=== PATIENT | female | born 1960 | race Caucasian/White ===

== ENCOUNTER → 2017-07-31 | Day surgery (SDC) | payer BC, OTHER ==
[2017-06-23 13:13] VITALS: BMI 51.0
[2017-07-17 12:03] VITALS: Ht 162.6 cm; Wt 132.7 kg
[~2017-07-31] VITALS: Ht 162.6 cm; Wt 132.7 kg
[~2017-07-31] MED LIST: ASPI325T45 PO; ATV/1 PO; BUTACAP36 PO; CALC600T37 PO; CYCL10TA6 PO; FENTANYL CITRATE INJ 50 MCG/1 ML 2 ML VIAL ONE; IBUP-1050 PO; LABETALOL HCL IV 5 MG/ML 20ML IV ONE; LIDOCAINE HCL 2% 2 ML VIAL (20MG/ML) ONE; OXYC7.5T65 PO; PROPOFOL IV EMULSION 10 MG/ML 20 ML VIAL IV ONE; SODIUM CHLORIDE 0.9% 500ML 500 ML IV ONE; TRMCR515 TOP; VNTHFA/IN INH
--- NOTE | 2017-07-31 15:17 | Endo History and Physical ---
History & Physical Date of Service: Jul 31, 2017. Chief Complaint: anemia Referring Physician: Dr. Kevin Veliz History of Present Illness VIVIANA for EGD/Colon Past Surgical History Hx Cardiac Surgery: No Hx Internal Defibrillator: No Hx Pacemaker: No Hx Abdominal Surgery: Yes (LAPAROSCOPIES) Hx of Implantable Prosthesis: No Hx Post-Op Nausea and Vomiting: Yes Hx Cancer Surgery: No Hx Thoracic Surgery: No Hx Orthopedic: Yes (T5-S1 FUSION (3 SURGERIES TOTAL), RT RCR) Hx Urinary Tract Surgery: No Family History Colon CA, Polyp Social History Smoking Status: Never Smoker Hx Substance Use: No Hx Alcohol Use: No Allergies Coded Allergies: Nafcillin (Verified Allergy, Mild, ITCHING/REDNESS, 07/17/17) Gold (Verified Allergy, Unknown, RASH, 07/17/17) Medroxyprogesterone (Verified Allergy, Unknown, HIVES, 07/17/17) Wheat (Verified Allergy, Unknown, UNKNOWN, 07/17/17) Penicillins (Verified Adverse Reaction, Severe, rash and swelling, 07/31/17 ) Morphine (Verified Adverse Reaction, Mild, nausea /vomit, 07/17/17) Current Medications Reported Home Medications Medications Dose Route/Sig Max Daily Dose Days Date Category Dose Instructions Calcium 600 Mg Tab 1 Tab PO QAM 06/23/17 Reported Aspirin 325 Mg Tab 1 Tab PO BID PRN 06/23/17 Reported Advil (Ibuprofen) 200 Mg Tab 400-600 Mg PO Q6H PRN 06/23/17 Reported Triamcinolone Acetonide (Triamcinolone Acet) 45 Appln/15 Gm Cr 1 Appln TOP BID PRN 06/23/17 Reported Ventolin Hfa (Albuterol) 200 Puffs/18971 Mcg Aers 2-4 Puffs INH Q6H PRN 06/23/17 Reported Flexeril (Cyclobenzaprine Hcl) 10 Mg Tab 10 Mg PO DAILY PRN 12/08/15 Reported Fiorinal (Cygihqmtyv-Fbjzmvm-Mcwhsbwr) 1 Cap Cap 1 Cap PO QAM PRN 12/08/15 Reported Ativan (Lorazepam) 1 Mg Tab 1 Mg PO TID 12/08/15 Reported Percocet 7.5MG/325MG (Oxycodone/Acetaminophen) Tab 1 Tab PO QID PRN 12/08/15 Reported PRN PAIN Vital Signs Weight (Kilograms): 132.73 Height (Feet): 5 Height (Inches): 4 Date Time Temp Pulse Resp B/P (MAP) Pulse Ox O2 Delivery O2 Flow Rate FiO2 07/31/17 15:03 113 20 196/108 (137) 94 Room Air 07/31/17 14:40 36.8 113 20 203/117 (145) 94 Room Air Physical Exam General Appearance: WD/WN, no apparent distress Respiratory/Chest: Auscultation: breath sounds normal Cardiovascular: Heart Auscultation: RRR Abdomen: Bowel Sounds: normal Inspection & Palpation: soft, non-distended, no tenderness, guarding & rebound Assessment and Plan EGD/SBE and colonoscopy
--- NOTE | 2017-07-31 16:33 | Anesthesiology Progress Note ---
Anesthesia Post Op Note Date & Time Jul 31, 2017 at 16:33 Vital Signs Vital Signs Past 12 Hours Date Time Temp Pulse Resp B/P (MAP) Pulse Ox O2 Delivery O2 Flow Rate FiO2 07/31/17 16:28 101 20 149/93 (111) 97 Room Air 07/31/17 16:16 100 14 134/85 (101) 95 Room Air 07/31/17 15:03 113 20 196/108 (137) 94 Room Air 07/31/17 14:40 36.8 113 20 203/117 (145) 94 Room Air Notes Mental Status: alert / awake / arousable, participated in evaluation Pt Amnestic to Procedure: Yes Nausea / Vomiting: adequately controlled Pain: adequately controlled Airway Patency, RR, SpO2: stable & adequate BP & HR: stable & adequate Hydration State: stable & adequate Anesthetic Complications: no major complications apparent
--- NOTE | 2017-07-31 16:47 | Discharge Instructions ---
Endoscopy Patient Instructions Date / Procedure(s) Performed Jul 31, 2017. Colonoscopy, EGD Allergy Information Coded Allergies: Nafcillin (Verified Allergy, Mild, ITCHING/REDNESS, 07/17/17) Gold (Verified Allergy, Unknown, RASH, 07/17/17) Medroxyprogesterone (Verified Allergy, Unknown, HIVES, 07/17/17) Wheat (Verified Allergy, Unknown, UNKNOWN, 07/17/17) Penicillins (Verified Adverse Reaction, Severe, rash and swelling, 07/31/17 ) Morphine (Verified Adverse Reaction, Mild, nausea /vomit, 07/17/17) Discharge Date / Findings Jul 31, 2017. colon normal to TI EGD with duodenal ulcer/stenosis- bx'd and bx for H pylori Medication Instructions Stopped Medication(s): no Advil since Thursday,no ASA since Thursday Restart Stopped Medication(s): Reported Home Medications Medications Dose Route/Sig Max Daily Dose Days Date Category Dose Instructions Calcium 600 Mg Tab 1 Tab PO QAM 06/23/17 Reported Aspirin 325 Mg Tab 1 Tab PO BID PRN 06/23/17 Reported Advil (Ibuprofen) 200 Mg Tab 400-600 Mg PO Q6H PRN 06/23/17 Reported Triamcinolone Acetonide (Triamcinolone Acet) 45 Appln/15 Gm Cr 1 Appln TOP BID PRN 06/23/17 Reported Ventolin Hfa (Albuterol) 200 Puffs/94760 Mcg Aers 2-4 Puffs INH Q6H PRN 06/23/17 Reported Flexeril (Cyclobenzaprine Hcl) 10 Mg Tab 10 Mg PO DAILY PRN 12/08/15 Reported Fiorinal (Wkkazjafsl-Gixcyut-Lhbimtsj) 1 Cap Cap 1 Cap PO QAM PRN 12/08/15 Reported Ativan (Lorazepam) 1 Mg Tab 1 Mg PO TID 12/08/15 Reported Percocet 7.5MG/325MG (Oxycodone/Acetaminophen) Tab 1 Tab PO QID PRN 12/08/15 Reported PRN PAIN 1- need to reduce/eliminate all medications with aspirin or Aleve/ibuprofen and avoid Fiorinal. Ask PCP to switch to Fioricet 2- Begin Prilosec 40mg twice daily 1/2 hour before breakfast/supper for 4 months, then decrease to one dose daily especially if above medications are used in any amounts. Reported Home Medications Medications Dose Route/Sig Max Daily Dose Days Date Category Dose Instructions Calcium 600 Mg Tab 1 Tab PO QAM 06/23/17 Reported Aspirin 325 Mg Tab 1 Tab PO BID PRN 06/23/17 Reported Advil (Ibuprofen) 200 Mg Tab 400-600 Mg PO Q6H PRN 06/23/17 Reported Triamcinolone Acetonide (Triamcinolone Acet) 45 Appln/15 Gm Cr 1 Appln TOP BID PRN 06/23/17 Reported Ventolin Hfa (Albuterol) 200 Puffs/99282 Mcg Aers 2-4 Puffs INH Q6H PRN 06/23/17 Reported Flexeril (Cyclobenzaprine Hcl) 10 Mg Tab 10 Mg PO DAILY PRN 12/08/15 Reported Fiorinal (Xqtokuejkb-Ndqfret-Jobpaeer) 1 Cap Cap 1 Cap PO QAM PRN 12/08/15 Reported Ativan (Lorazepam) 1 Mg Tab 1 Mg PO TID 12/08/15 Reported Percocet 7.5MG/325MG (Oxycodone/Acetaminophen) Tab 1 Tab PO QID PRN 12/08/15 Reported PRN PAIN 1- need to reduce/eliminate all medications with aspirin or Aleve/ibuprofen and avoid Fiorinal. Ask PCP to switch to Fioricet 2- Begin Prilosec 40mg twice daily 1/2 hour before breakfast/supper for 4 months, then decrease to one dose daily especially if above medications are used in any amounts Provider Instructions Activity Restrictions - No exercising or heavy lifting for 24 hours. - Do not drink alcohol the day of the procedure. - Do not drive a car or operate machinery until the day after the procedure. - Do not make any important decisions or sign important papers in 24 hours after the procedure. Following Day: - Return to full activity which may include returning to work/school. Diet Start your diet with liquids and light foods (jello, soup, juice, toast). Then eat your usual diet if not nauseated. Treatment For Common After Affects For mild abdominal pain, bloating, or excessive gas: - Rest - Eat lightly - Lie on right side Follow-Up Information Follow-up with Dr. Kevin Veliz as scheduled Anesthesia Information What You Should Know You have had a procedure that required some medicine to reduce anxiety and discomfort. This treatment is called moderate sedation. After receiving the treatment, you may be sleepy, but you will be able to breathe on your own. The effects of the treatment may last for several hours. Follow these instructions along with Activity/Diet recommendations noted above: * Do NOT do anything where dizziness or clumsiness would be dangerous. * Rest quietly at home today, then you can be up and about tomorrow. * Have a responsible person stay with you the rest of today. * You may have had an I.V. today. If so, you may take the dressing off later today. Recommendations Call your doctor if: * Trouble breathing * Continuous vomiting for more than 24 hours * Temperature above 101 degrees * Severe abdominal pain or bloating * Pain not relieved by pain medicine ordered * There is increased drainage or redness from any incision * A large amount of rectal bleeding greater than 2-3 tablespoons. (If you had a polyp/s removed or have hemorrhoids, a small amount of blood - from the rectum is to be expected.) * You have any unanswered questions or concerns. IN THE EVENT OF A SERIOUS EMERGENCY, GO TO THE NEAREST EMERGENCY ROOM Your discharge instructions were prepared by provider Ellis Stokes. Patient Instructions Signature Page Sherlyn Vital Patient (or Guardian) Signature/Date: I have read and understand the instructions given to me by my caregivers. Caregiver/RN/Doctor Signature/Date: The above-named patient and/or guardian has received patient instructions on this date. + Original Patient Signature Page (only) stays with chart. Please make copy for patient.
--- NOTE | 2017-07-31 16:51 | GI REPORT ---
Procedure Date: 07/31/2017 3:34 PM Procedure: Colonoscopy Indications: Unexplained iron deficiency anemia Medicines: Propofol per Anesthesia Complications: No immediate complications. Estimated blood loss: None. Estimated Blood Loss: Estimated blood loss: none. Procedure: Pre-Anesthesia Assessment: - Prior to the procedure, a History and Physical was performed, and patient medications and allergies were reviewed. The patient's tolerance of previous anesthesia was also reviewed. The risks and benefits of the procedure and the sedation options and risks were discussed with the patient. All questions were answered, and informed consent was obtained. Prior Anticoagulants: The patient has taken no previous anticoagulant or antiplatelet agents. ASA Grade Assessment: III - A patient with severe systemic disease. After reviewing the risks and benefits, the patient was deemed in satisfactory condition to undergo the procedure. After I obtained informed consent, the scope was passed under direct vision. Throughout the procedure, the patient's blood pressure, pulse, and oxygen saturations were monitored continuously. The scope was introduced through the anus and advanced to the terminal ileum, with identification of the appendiceal orifice and IC valve. The colonoscopy was performed without difficulty. The patient tolerated the procedure well. The quality of the bowel preparation was good. Findings: The perianal and digital rectal examinations were normal. Pertinent negatives include normal sphincter tone, no palpable rectal lesions and no anal lesion or abnormality was detected. The colon (entire examined portion) appeared normal. The terminal ileum appeared normal. The retroflexed view of the distal rectum and anal verge was normal and showed no anal or rectal abnormalities. Impression: - The entire examined colon is normal. - The examined portion of the ileum was normal. - The distal rectum and anal verge are normal on retroflexion view. - No specimens collected. Recommendation: - Discharge patient to home (ambulatory). - Advance diet as tolerated. - Continue present medications. - Return to referring physician as previously scheduled. MD Ellis Tamez MD 07/31/2017 4:50:29 PM This report has been signed electronically. Note Initiated On: 07/31/2017 3:34 PM I attest to the content of the Intraoperative Record and orders documented therein, exceptions below
[2017-07-31 16:52] VITALS: BP 158/109; PULSE 100; O2SAT 97
--- NOTE | 2017-07-31 17:37 | GI REPORT ---
Procedure Date: 07/31/2017 3:35 PM Procedure: Upper GI endoscopy Indications: Unexplained iron deficiency anemia Medicines: Propofol per Anesthesia Complications: No immediate complications. Estimated blood loss: Minimal. Estimated Blood Loss: Estimated blood loss was minimal. Procedure: Pre-Anesthesia Assessment: - Prior to the procedure, a History and Physical was performed, and patient medications and allergies were reviewed. The patient's tolerance of previous anesthesia was also reviewed. The risks and benefits of the procedure and the sedation options and risks were discussed with the patient. All questions were answered, and informed consent was obtained. Prior Anticoagulants: The patient has taken no previous anticoagulant or antiplatelet agents. ASA Grade Assessment: III - A patient with severe systemic disease. After reviewing the risks and benefits, the patient was deemed in satisfactory condition to undergo the procedure. After obtaining informed consent, the endoscope was passed under direct vision. Throughout the procedure, the patient's blood pressure, pulse, and oxygen saturations were monitored continuously. The scope was introduced through the mouth, and advanced to the mid-jejunum. The upper GI endoscopy was accomplished without difficulty. The patient tolerated the procedure well. Findings: The examined esophagus was normal. A small hiatus hernia was found. The proximal extent of the gastric folds (end of tubular esophagus) was 38 cm from the incisors. The hiatal narrowing was 41 cm from the incisors. The Z-line was 38 cm from the incisors. The entire examined stomach was normal. The gastric body and gastric antrum were normal. Biopsies were taken with a cold forceps for histology. Estimated blood loss was minimal. Verification of patient identification for the specimen was done by the physician and dental lab technician using the patient's name and medical record number. An acquired benign-appearing, intrinsic moderate stenosis with superficial ulceration that oozed spontaneously at region of stenosis was found in the duodenal bulb and in the first part of the duodenum and was traversed. Biopsies were taken with a cold forceps for histology. Estimated blood loss was minimal. Verification of patient identification for the specimen was done by the physician and dental lab technician using the patient's name and medical record number. The 2nd part of the duodenum, 3rd part of the duodenum and 4th part of the duodenum were normal. The examined jejunum was normal. The cardia and gastric fundus were normal on retroflexion. Retained gastric contents are not identified on this exam. Impression: - Normal esophagus. - Small hiatus hernia. - Normal stomach. - Normal gastric body and antrum. Biopsied. - Acquired duodenal stenosis. Biopsied. - Normal 2nd part of the duodenum, 3rd part of the duodenum and 4th part of the duodenum. - Normal examined jejunum. Recommendation: - Discharge patient to home (ambulatory). - Resume regular diet. - Use Prilosec (omeprazole) 40 mg PO BID for 4 months, then once daily. - No aspirin, ibuprofen, naproxen, or other non-steroidal anti-inflammatory drugs. - No ibuprofen, naproxen, or other non-steroidal anti-inflammatory drugs. - Tylenol is acceptable alternative in dose of 3-4 grams daily total (including any combination products). - Await pathology results. - Return to referring physician as previously scheduled. - Repeat the upper endoscopy for surveillance based on pathology results. MD Ellis Tamez MD 07/31/2017 5:37:21 PM This report has been signed electronically. Note Initiated On: 07/31/2017 3:35 PM I attest to the content of the Intraoperative Record and orders documented therein, exceptions below
== END | disposition home or self-care (01) ==
LOC: C.GI 13:48
PROVIDERS: ATTEND Internal Medicine Gastroenterology
DX: D50.9 Iron deficiency anemia, unspecified (principal); K44.9 Diaphragmatic hernia without obstruction or gangrene; K31.5 Obstruction of duodenum; K29.80 Duodenitis without bleeding; K29.50 Unspecified chronic gastritis without bleeding; M19.90 Unspecified osteoarthritis, unspecified site; E66.9 Obesity, unspecified; J45.909 Unspecified asthma, uncomplicated; F41.9 Anxiety disorder, unspecified; Z88.0 Allergy status to penicillin; Z88.5 Allergy status to narcotic agent; Z98.890 Other specified postprocedural states; Z79.899 Other long term (current) drug therapy; Z79.82 Long term (current) use of aspirin; Z68.43 Body mass index [BMI] 50.0-59.9, adult; Z80.0 Family history of malignant neoplasm of digestive organs

== ENCOUNTER → 2017-10-19 | Outpatient (CLI) | payer OTHER ==
[~2017-10-19] MED LIST changes: -FENTANYL CITRATE INJ 50 MCG/1 ML 2 ML VIAL ONE; -LABETALOL HCL IV 5 MG/ML 20ML IV ONE; -LIDOCAINE HCL 2% 2 ML VIAL (20MG/ML) ONE; -PROPOFOL IV EMULSION 10 MG/ML 20 ML VIAL IV ONE; -SODIUM CHLORIDE 0.9% 500ML 500 ML IV ONE
== END ==
LOC: C.PAPS 09:41
PROVIDERS: ATTEND Obstetrics & Gynecology
DX: Z01.419 Encounter for gynecological examination (general) (routine) without abnormal findings (principal)

== ENCOUNTER 2019-06-17 12:57 | Inpatient (IN) ==
--- NOTE | 2019-06-10 09:49 | Anesthesiology Consultation ---
Date of Service June 10, 2019 Assessment & Plan Chart Review Chart Review: Acceptable Risk for Surgery and Patient NOT seen in Pre Admission Testing Consults Requested none ASA ASA3 Proposed Anesthesia Risk / Benefits Reviewed With: PT / POA / Parent / Guardian, Accepts Plan and Informed Consent Obtained History Surgery Operation Date: 06/17/19 14:00 Proposed Procedures p Esophagogastroduodenoscopy Dr Levon Dos Santos Height/Weight Height: 5 ft 4 in Weight: 97.069 kg Allergies Allergy/AdvReac Type Severity Reaction Status Date / Time metronidazole [From Flagyl] Allergy Severe Hives Verified 06/17/19 13:27 Gold Salts Allergy Intermediate Hives Verified 06/17/19 13:27 nafcillin Allergy Intermediate Hives Verified 06/17/19 13:27 wheat Allergy Intermediate migraines/joint Verified 06/17/19 13:27 pain medroxyprogesterone Allergy Mild HIVES Verified 06/17/19 13:27 Penicillins AdvReac Intermediate Hives Verified 06/17/19 13:27 morphine AdvReac Mild nausea Verified 06/17/19 13:27 /vomit Medications Home Medications Medication Instructions Recorded Confirmed Last Taken acetaminophen [Tylenol Extra 1,000 mg PO UD PRN 03/23/19 06/17/19 06/17/19 08:00 Strength] albuterol sulfate [ProAir HFA] 2 puff INHALATION Q6H PRN 03/23/19 06/17/19 Unknown aspirin 325 mg PO BID PRN 03/23/19 06/17/19 06/10/19 esrpaqyzid-xhkmhpwtlraao-miju 1 cap PO DAILY PRN 03/23/19 06/17/19 Unknown calcium carbonate [Calcium 600] 600 mg PO QAM 03/23/19 06/17/19 03/23/19 cyclobenzaprine 10 mg PO DAILY PRN 03/23/19 06/17/19 03/23/19 5 mg ibuprofen 400 - 800 mg PO Q6H PRN 03/23/19 06/17/19 06/17/19 08:00 lorazepam [Ativan] 1 mg PO TID 03/23/19 06/17/19 06/17/19 08:00 oxycodone-acetaminophen [Endocet] 1 tab PO 5XD 03/23/19 06/17/19 06/17/19 08:00 triamcinolone acetonide 1 applic TOPICAL BID PRN 03/23/19 06/17/19 Unknown ondansetron HCl [Zofran] 4 mg PO BID PRN 06/17/19 06/17/19 06/14/19 Past Medical History Medical History Anemia Anxiety Asthma allergy induced---inhaler prn Chronic back pain Degenerative disc disease Fibromyalgia Gastroparesis History of DVT (deep vein thrombosis) 2009--left leg got during sepsis History of duodenal ulcer IBS (irritable bowel syndrome) Migraine Nausea and vomiting after administration of anesthetic agent Osteoarthritis Spinal stenosis Hypertension (Chronic) Exercise / Class Metabolic Activity II 4-5 Yardwork/Stairs/Walk up hill Past Family History Family History Mother Family history of diabetes mellitus Sister Family history of diabetes mellitus Grandmother (Paternal) Family hx of colon cancer Father Family hx colonic polyps Other No family history of adverse response to anesthesia No significant family history Past Surgical History Surgical History [place] filter in place 2009 d/t blood clot in left leg History of bilateral tubal ligation History of colonoscopy History of esophagogastroduodenoscopy (EGD) History of laparoscopy x3--for endometriosis History of repair of right rotator cuff History of right oophorectomy History of spinal fusion x3---t5-s1 History of tooth extraction Past Anesthesia History No Hx of Anesthesia Complications and No Family Hx of Anesthesia Complications History of PONV No Hx of PONV and No Hx of Motion Sickness Social History Smoking Status: Never smoker Do You Dip or Chew Tobacco: No Hx Alcohol Use: No Hx Substance Use: No substance use type: does not use Physical Exam Vital Signs Last Vital Signs Temp 36.8 C 06/17/19 13:34 Pulse 108 H 06/17/19 13:34 Resp 20 06/17/19 13:34 BP 171/96 H 06/17/19 13:34 Pulse Ox 96 06/17/19 13:34 ENMT Mouth: no TMJ abnormality Thyromental Distance: > or= 3.5 Finger Breadths Mallampati Class: II Neck normal visual inspection Respiratory normal respiratory effort Auscultation: lungs clear to auscultation bilaterally Cardiovascular Rate/Rhythm: regular rate and regular rhythm Heart Sounds: no murmur Vessels: no carotid bruit Neurologic moves all extremities Psychiatric Orientation: alert and oriented x 3
[2019-06-17] MEDS ORDERED: PROPOFOL IV EMULSION 10 MG/ML 20 ML VIAL IV ONE (13:52)
[2019-06-17] MEDS ORDERED: ONDANSETRON INJ 2 MG/ML 2 ML VIAL ONE (13:52)
[2019-06-17] MEDS ORDERED: LIDOCAINE HCL 2% 2 ML VIAL/AMP(20MG/ML) INFIL ONE (13:52)
[2019-06-17] MEDS ORDERED: ePHEDrine sulfate 50 MG/ML AMP IV PRN (13:59)
[2019-06-17] MEDS ORDERED: ATROPINE SULFATE 0.1 MG/ML 10ML SYR IV PRN (13:59)
--- NOTE | 2019-06-17 14:04 | History & Physical Report ---
Date of Service June 17, 2019 History of Present Illness Chief Complaint: gastric outlet obstruction Primary Care Provider: Kevin Veliz DO For EGD Allergies Allergy/AdvReac Type Severity Reaction Status Date / Time metronidazole [From Flagyl] Allergy Severe Hives Verified 06/17/19 13:27 Gold Salts Allergy Intermediate Hives Verified 06/17/19 13:27 nafcillin Allergy Intermediate Hives Verified 06/17/19 13:27 wheat Allergy Intermediate migraines/joint Verified 06/17/19 13:27 pain medroxyprogesterone Allergy Mild HIVES Verified 06/17/19 13:27 Penicillins AdvReac Intermediate Hives Verified 06/17/19 13:27 morphine AdvReac Mild nausea Verified 06/17/19 13:27 /vomit Home Medications Home Medications Medication Instructions Recorded Confirmed Type acetaminophen [Tylenol Extra 1,000 mg PO UD PRN 03/23/19 06/17/19 History Strength] albuterol sulfate [ProAir HFA] 2 puff INHALATION Q6H PRN 03/23/19 06/17/19 History aspirin 325 mg PO BID PRN 03/23/19 06/17/19 History [id number]-vljocgxvprxfk-dqpi 1 cap PO DAILY PRN 03/23/19 06/17/19 History calcium carbonate [Calcium 600] 600 mg PO QAM 03/23/19 06/17/19 History cyclobenzaprine 10 mg PO DAILY PRN 03/23/19 06/17/19 History ibuprofen 400 - 800 mg PO Q6H PRN 03/23/19 06/17/19 History lorazepam [Ativan] 1 mg PO TID 03/23/19 06/17/19 History oxycodone-acetaminophen [Endocet] 1 tab PO 5XD 03/23/19 06/17/19 History triamcinolone acetonide 1 applic TOPICAL BID PRN 03/23/19 06/17/19 History ondansetron HCl [Zofran] 4 mg PO BID PRN 06/17/19 06/17/19 History Past Med/Surg History Medical History Anemia Anxiety Asthma allergy induced---inhaler prn Chronic back pain Degenerative disc disease Fibromyalgia Gastroparesis History of DVT (deep vein thrombosis) 2009--left leg got during sepsis History of duodenal ulcer IBS (irritable bowel syndrome) Migraine Nausea and vomiting after administration of anesthetic agent Osteoarthritis Spinal stenosis Hypertension (Chronic) Surgical History [place] filter in place 2009 d/t blood clot in left leg History of bilateral tubal ligation History of colonoscopy History of esophagogastroduodenoscopy (EGD) History of laparoscopy x3--for endometriosis History of repair of right rotator cuff History of right oophorectomy History of spinal fusion x3---t5-s1 History of tooth extraction Family History Mother Family history of diabetes mellitus Sister Family history of diabetes mellitus Grandmother (Paternal) Family hx of colon cancer Father Family hx colonic polyps Other No family history of adverse response to anesthesia No significant family history Social History Preferred Language: Romanian Communication Ability: Effective Piano Maker Required: No Beliefs That Will Affect Care: None Current Living Situation: Spouse Other Information That Helps Us Care for You: No Feels Safe at Home: Yes Safety Concerns: Feels Safe At This Time Smoking Status: Never smoker Do You Dip or Chew Tobacco: No ; Second Hand Exposure: Yes ( smokes/parents smoked) ; Tobacco Cessation Education Requested by Patient: No Hx Alcohol Use: No Hx Substance Use: No Physical Exam Constitutional: + obese Respiratory: normal respiratory effort Cardiovascular: Rate/Rhythm: regular rate and regular rhythm Gastrointestinal (Abdomen): Percussion/Palpation: abdomen soft Results & Data Vital Signs (Past 12 Hours) Vital Signs Temp Pulse Resp BP Pulse Ox 06/17/19 13:34 36.8 C 108 H 20 171/96 H 96
--- NOTE | 2019-06-17 14:34 | GI REPORT ---
Patient Name: Sherlyn Vital Procedure Date: 06/17/2019 2:04 PM Date of : 1960 Admit Type: Outpatient Age: 59 Gender: Female Attending MD: Vinayak Dos Santos MD Procedure: Upper GI endoscopy Providers: Vinayak Dos Santos MD Referring MD: Kevin Veliz Indications: GOO Medicines: Propofol total dose 400 mg IV, Ondansetron 4 mg IV, Lidocaine 80 mg IV Complications: No immediate complications. Estimated Blood Loss: Estimated blood loss was minimal. Procedure: Pre-Anesthesia Assessment: - Prior to the procedure, a History and Physical was performed, and patient medications, allergies and sensitivities were reviewed. The patient's tolerance of previous anesthesia was reviewed. - The risks and benefits of the procedure and the sedation options and risks were discussed with the patient. All questions were answered and informed consent was obtained. After obtaining informed consent, the endoscope was passed under direct vision. Throughout the procedure, the patient's blood pressure, pulse, and oxygen saturations were monitored continuously. The Endoscope was introduced through the mouth, and advanced to the duodenal bulb. The upper GI endoscopy was technically difficult and complex due to stricture. Findings: LA Grade A (one or more mucosal breaks less than 5 mm, not extending between tops of 2 mucosal folds) esophagitis with no bleeding was found. A large amount of food (residue) was found in the gastric body. An acquired severe stenosis was found in the first portion of the duodenum and was non-traversed. A TTS dilator was passed through the scope. Dilation with an 8-9-10 mm pyloric balloon dilator was performed. Impression: - LA Grade A reflux esophagitis. - A large amount of food (residue) in the stomach. - Acquired duodenal stenosis. Dilated. - No specimens collected. Recommendation: - Admit the patient to [facility] for ongoing care. Vinayak Dos Santos M.D. Vinayak Dos Santos MD 06/17/2019 2:34:37 PM This report has been signed electronically. Note Initiated On: 06/17/2019 2:04 PM Number of Addenda: 0 I attest to the content of the Intraoperative Record and orders documented therein, exceptions below {[id number]}
--- NOTE | 2019-06-17 15:06 | XRay Report ---
XR chest 1V portable CLINICAL HISTORY: rule out aspiration COMPARISON STUDY: Chest CT March 02, 2016 FINDINGS: Lung volumes are normal. Minimal left basilar opacity favors atelectasis. There is no pneum othorax or pleural effusion. Cardiac size is normal. Mediastinal contours are normal. There is no enrike dence for pulmonary edema. Thoracolumbar spine hardware and old left-sided rib fractures are incident ally noted. IMPRESSION: No acute cardiopulmonary findings. Electronically signed by: Wesley Santoyo M.D. 06/17/2019 3:04 PM
--- NOTE | 2019-06-17 15:25 | Anesthesiology Progress Note ---
Date of Service June 17, 2019 The patient vomited a copious amount of vomit on the way to the PACU. She appeared not to have aspirated. Her sp02 on room air remained at 98% and a chest xray was read as no acute cardiopulmonary findings. Anesthesia Post Procedure Vital Signs Vital Signs: Temp Pulse Resp BP Pulse Ox 06/17/19 15:12 91 H 18 186/110 H 100 06/17/19 14:48 92 H 18 160/90 H 99 06/17/19 14:32 112 H 18 159/76 H 96 06/17/19 13:34 36.8 C 108 H 20 171/96 H 96 Transfer of Care Handoff Completed per policy Notes Mental Status: alert / awake / arousable Patient Amnestic to Procedure: Yes Nausea / Vomiting: adequately controlled Pain: adequately controlled Airway Patency, RR, SpO2: stable & adequate BP & HR: stable & adequate Hydration State: stable & adequate Anesthetic Complications: no major complications apparent and Pt Satisfied with anesthetic care
[2019-06-17] MEDS ORDERED: methylPREDNISolone 125 MG/2 ML VIAL IV STA (17:03)
[2019-06-17] MEDS ORDERED: HYDROmorphone INJ 1 MG/ML SYRINGE IV PRN ×2 (17:03→18:23)
[2019-06-17] MEDS ORDERED: DiphenhydrAMINE HCL 50 MG/ML VIAL IV STA (17:03)
[2019-06-17] MEDS ORDERED: LORazepam 1 MG/2 ML VIAL IV PRN (17:03)
[2019-06-17] MEDS ORDERED: methylPREDNISolone 60 MG in SYRINGE 0 ML IV ONE (17:30)
[2019-06-17] MEDS ORDERED: DEXTROSE 10% 1,000 ML IV SCH (17:30)
[2019-06-17] MEDS: SODIUM CHLORIDE 0.9% 1000ML 1,000 ML IV SCH (17:47)
[2019-06-17] MEDS ORDERED: ZOLPIDEM TARTRATE 5 MG TAB PO PRN (18:01)
--- NOTE | 2019-06-17 18:05 | History & Physical Report ---
Date of Service June 17, 2019 Assessment & Plan (1) Duodenal stenosis: #Duodenal stenosis Patient has a prolonged history of diarrhea and abdominal pain. She described got symptoms for 12 weeks prior to diagnosis, on Markedly distended stomach without evidence of obstructing mass or volvulus. He subsequently followed up with Dr. Singh in the outpatient setting for an outpatient EGD at which point she was diagnosed with duodenal stenosis. Since that time she is been on liquid diet experiencing significant Pain and unable to sleep each evening. Today she is currently status post EGD performed in the hospital. EGD demonstrated a grade a esophagitis with no bleeding. A significant burden of food/residue was found to gastric body. Finally acquired severe stenosis was found the first portion of the duodenum and was not transversed. A TTS dilator was passed through the scope. Dilation with 10 mm pyloric balloon was performed. -Status post EGD, recovering well -Analgesia with Dilaudid every 6 hours as needed -Clear liquid diet for now -PICC line consent placed on patient's chart -Plan to start TPN tomorrow -PRN Zofran for nausea -Gastroenterology consulted appreciate the recommendation #History of spinal fusion T5-S1 Patient reports history of chronic pain secondary to spinal fusion, she had had this revised at the [facility]. She has no significant complaints related to this currently. -Monitor for now #Aortic stenosis Patient has a history of aortic stenosis, murmur discovered recently. On exam today she has a grade 3 out of 6 systolic ejection murmur does not follow with cardiology. She is currently stable, reports a history of bradycardia. -Monitor for now recommends outpatient cardiology follow-up -Status post IVC filter #Fibromyalgia Patient has a history of on Percocet x5 at home, complaining of 8 out of 10 pain currently -Analgesia as above #Anxiety -Continue home meds #Insomnia -PRN Ambien 5 mg FENa: N.p.o. Code Status: Full DVT PPX: IVC filter Lovenox PT/OT: TBD Dispo: Home when cleared by MARIO Pruitt MD PGY 2, FCM This chart was completed utilizing [employer]oc[employer] voice recognition software. Grammatical errors, random word insertions, pronoun errors, and in complete sentences are an occasional consequence of the system. Any questions or concerns about the content, text, or information contained within the body of this dictation should be addressed directly to the physician for clarification. History of Present Illness Patient is a 59-year-old female with a complicated past medical history of aortic stenosis, DVT, IVC filter, elevated eosinophils, surgery to the right rotator cuff, spinal fusion from T5-S1, fibromyalgia, prolonged ICU stay in 2008 for sepsis, Leukocytosis of unknown origin has previously been evaluated by Dr. Juarez. Patient presented to the hospital for elective EGD secondary to previously diagnosed duodenal stricture.patient reports her symptoms started approximately on 04 March with severe diarrhea after attending her son's wedding initially she had thought this was secondary to some form of foodborne illness however after 2 weeks of persistent diarrhea she presented the emergency department. In the emergency department they performed an extensive work-up all other being negative she did have diarrhea for 1 to 2 weeks then she started feeling a sensation of blockage in her guts, discontinued for approximately 12 to 14 weeks she is evaluated by numerous physicians were unable to find the cause of her symptoms. Eventually an EGD was performed on 26 May during that procedure it was noted that she had stenosis of the duodenum, and it was unable to be traversed. Given that the procedure was performed in the outpatient setting the physician was unable to perform balloon dilation, he completed this procedure and advised the patient to resume a full liquid diet and to follow-up at his first available elective appointment for EGD. Patient reports that since then she has been in significant abdominal pain, has an extremely difficult sleeping, and has had upset stomach with acid reflux. Currently patient is doing well. In the immediate postoperative period she experienced a couple episodes of vomitus as well as nausea, since then this has resolved. Currently she is endorsing 8 out of 10 pain, and no other acute concerns. Patient reports moving her bowels yesterday, has recently been tolerating her diet, sleeping intermittently, and voiding on her own. All questions answered, patient requesting PRN medication for sleep should she need it this evening. Primary Care Provider: Kevin Veliz, Allergies Allergy/AdvReac Type Severity Reaction Status Date / Time metronidazole [From Flagyl] Allergy Severe Hives Verified 06/17/19 13:27 Gold Salts Allergy Intermediate Hives Verified 06/17/19 13:27 nafcillin Allergy Intermediate Hives Verified 06/17/19 13:27 wheat Allergy Intermediate migraines/joint Verified 06/17/19 13:27 pain medroxyprogesterone Allergy Mild HIVES Verified 10/18/19 13:27 Penicillins AdvReac Intermediate Hives Verified 06/17/19 13:27 morphine AdvReac Mild nausea Verified 06/17/19 13:27 /vomit Home Medications Home Medications Medication Instructions Recorded Confirmed Type acetaminophen [Tylenol Extra 1,000 mg PO UD PRN 03/23/19 06/17/19 History Strength] albuterol sulfate [ProAir HFA] 2 puff INHALATION Q6H PRN 03/23/19 06/17/19 History aspirin 325 mg PO BID PRN 03/23/19 06/17/19 History yzbxqyuzql-rlmvqyfrwsjbj-scsh 1 cap PO DAILY PRN 03/23/19 06/17/19 History calcium carbonate [Calcium 600] 600 mg PO QAM 03/23/19 06/17/19 History cyclobenzaprine 10 mg PO DAILY PRN 03/23/19 06/17/19 History ibuprofen 400 - 800 mg PO Q6H PRN 03/23/19 06/17/19 History lorazepam [Ativan] 1 mg PO TID 03/23/19 06/17/19 History oxycodone-acetaminophen [Endocet] 1 tab PO 5XD 03/23/19 06/17/19 History triamcinolone acetonide 1 applic TOPICAL BID PRN 03/23/19 06/17/19 History ondansetron HCl [Zofran] 4 mg PO BID PRN 06/17/19 06/17/19 History Past Med/Surg History Medical History Anemia Anxiety Asthma allergy induced---inhaler prn Chronic back pain Degenerative disc disease Fibromyalgia Gastroparesis History of DVT (deep vein thrombosis) 2009--left leg got during sepsis History of duodenal ulcer IBS (irritable bowel syndrome) Migraine Nausea and vomiting after administration of anesthetic agent Osteoarthritis Spinal stenosis Hypertension (Chronic) Surgical History Arnold filter in place 2009 d/t blood clot in left leg History of bilateral tubal ligation History of colonoscopy History of esophagogastroduodenoscopy (EGD) History of laparoscopy x3--for endometriosis History of repair of right rotator cuff History of right oophorectomy History of spinal fusion x3---t5-s1 History of tooth extraction Family History Mother Family history of diabetes mellitus Sister Family history of diabetes mellitus Grandmother (Paternal) Family hx of colon cancer Father Family hx colonic polyps Other No family history of adverse response to anesthesia No significant family history Social History Preferred Language: Nepali Communication Ability: Effective Document Preparer Microfilming Required: No Beliefs That Will Affect Care: None Current Living Situation: Spouse Other Information That Helps Us Care for You: No Feels Safe at Home: Yes Safety Concerns: Feels Safe At This Time Smoking Status: Never smoker Do You Dip or Chew Tobacco: No ; Second Hand Exposure: Yes ( smokes/parents smoked) ; Tobacco Cessation Education Requested by Patient: No Hx Alcohol Use: No Hx Substance Use: No Review of Systems Review of Systems: All systems reviewed & are unremarkable except as noted in HPI & below Physical Exam Physical Exam: General: Middle-aged female lying in bed in no acute distress HEENT: Normocephalic atraumatic Neck: Normal to visual inspection, trachea midline, negative JVD Cardiac: Grade 3 out of 6 systolic ejection murmur heard loudest at the second right intercostal space, regular rate, regular rhythm no gallops appreciated, normal S1, normal S2, negative pedal edema, negative tach calf tenderness Respiratory: Clear to auscultation bilaterally with symmetrical chest rise, did not appreciate significant wheezes, rales, rhonchi GI: Soft, distended abdomen, tender to palpation in all 4 quadrants, this is not a new symptom for the patient MSK: Moves all extremities, spinal flexion limited secondary to spinal fusion Skin: Warm, dry, intact Neuro: Alert and oriented x4 Psych: Calm, cooperative, perseverates on her chronic medical conditions Results & Data Vital Signs (Past 12 Hours) Vital Signs Temp Pulse Resp BP Pulse Ox 06/17/19 16:30 36.6 C 81 16 163/77 H 99 06/17/19 15:26 86 18 180/99 H 100 06/17/19 15:12 91 H 18 186/110 H 100 06/17/19 14:48 92 H 18 160/90 H 99 06/17/19 14:32 112 H 18 159/76 H 96 06/17/19 13:34 36.8 C 108 H 20 171/96 H 96 Medications Administered Current Inpatient Medications Enoxaparin Sodium (Lovenox) 40 mg SQ Q24H CINDY Stop: 07/17/19 17:59 Hydromorphone HCl (Dilaudid) 1 mg IV Q8H PRN PRN Reason: Pain Stop: 07/01/19 17:02 Sodium Chloride (Nss 1000ml) 1,000 mls @ 125 mls/hr IV .Q8H CINDY Stop: 07/17/19 17:02 Lorazepam (Ativan) 1 mg in 2 mls @ 2 mls/min IV Q8 PRN PRN Reason: Anxiety Stop: 07/17/19 17:02 Dextrose (D10w) 1,000 mls @ 0 mls/hr IV .Q0M CINDY Stop: 07/17/19 17:29 Miscellaneous Information (Pharmacy Tpn/Ppn Consult Active) 1 ea N/A UD PRN PRN Reason: Consult Stop: 07/18/19 15:59 Ondansetron HCl (Zofran) 4 mg IV Q6H PRN PRN Reason: Nausea Stop: 07/17/19 17:02 Code Status & VTE Plan VTE Prophylaxis Plan VTE Prophylaxis will be ordered: Yes Supervising Physician Co-Signing Physician Notes Patient seen and examined with Dr. Pruitt. I agree with their exam findings, review of systems, assessment and plan. I have personally reviewed the lab work and imaging from today. patient was discussed with Dr. Dos Santos. patient denies any active nausea after her EGD, we discussed the findings of the duodenal stricture reviewed CT, no mass appreciated will place PICC and get TPN started patient reports 35lb weight loss no chest pain, no fever, no cough, no dyspnea Exam: WD WN female, NAD, AAOx3, lungs CTA bilaterally, normal effort, regular S1 S2 no murmurs abdomen soft, NT, ND, +BS spine fused, decreased ROM, tender on exam - Duodenal stricture causing gastric outlet obstruction clears, Zofran PRN will order PICC and start on TPN CT abdomen/pelvis without mass consider general surgery consultation - Chronic back pain, chronic [facility] narcotics: hold on PO meds use Dilaudid 1mg IV q6 PRN for full details see resident note PG Care Time/CCT Total # of Minutes Spent Total Time Spent with Patient: Total time spent is greater than 50% in coordination of care (as documented) at patient's floor/unit and/or counseling patient: Resident Activity Tracking Resident Involvement: Resident Care Provided Care Provided: Adult Hospital Medicine
[2019-06-17] MEDS ORDERED: IOVERSOL 100ml IV PRN (18:09)
--- NOTE | 2019-06-17 18:24 | CT Scan Report ---
CT SCAN OF THE ABDOMEN AND PELVIS WITH IV CONTRAST CLINICAL HISTORY: Duodenal stricture. COMPARISON STUDY: Abdominal CT dated 05/19/2019. Chest CT dated 12/08/2015. TECHNIQUE: Following the IV administration of 94 cc of Optiray 320, CT scan of the abdomen and pelvi s is performed from the lung bases to the proximal femora. Images are reviewed in the axial, sagittal , and coronal planes. IV contrast was administered without complication. A dose lowering technique wa s utilized adhering to the principles of ALARA. Examination is degraded by metallic streak artifact f rom extensive thoracolumbar spinal fusion hardware. CT DOSE: 801.50 mGy.cm FINDINGS: Lung bases: The heart is normal in size and without pericardial effusion. There is no airspace consol idation or pleural effusion. Dependent atelectasis is observed. There is a 6 mm pleural-based nodule in the right middle lobe seen on image #8. This is unchanged from 12/08/2015 and of doubtful significan ce. Liver: The contrast-enhanced liver is normal in size, contour, and attenuation. There is no intrahepa tic biliary ductal dilatation. The hepatic veins and portal veins are patent. Gallbladder: There are numerous layering calcified gallstones, with no CT evidence of acute cholecyst itis. Spleen: Normal in size and attenuation. Pancreas: Moderately atrophic and grossly unremarkable. Adrenal glands: Unremarkable. Kidneys: The contrast enhanced kidneys demonstrate cortical atrophy and are without hydronephrosis. T he kidneys enhance symmetrically. Abdominal vasculature: The abdominal aorta is normal in course and caliber noting mild to moderate at herosclerotic calcification. An infrarenal IVC filter is noted. Stomach and bowel: The stomach and proximal duodenum are distended and filled with fluid. The distal duodenum is normal in caliber. There is mild colonic fecal retention. The small bowel loops are rachel l in caliber. The appendix is well-visualized and normal. Peritoneum: There is no intraperitoneal free air or abdominal ascites. Lymphadenopathy: None. Pelvic viscera: The bladder, uterus, and adnexa are normal as imaged. A calcified granuloma is noted in the right gluteal soft tissues. Skeletal structures: The skeletal structures are osteopenic. There is postoperative change from exten sive thoracolumbar laminectomy with posterior fusion. Iliac bolts are in place. Advanced degenerative changes noted in the left sacroiliac joint. There is grade 1 anterolisthesis at L5-S1. Degenerative change and scoliosis are noted throughout the imaged spine. No lytic or blastic lesions are seen. IMPRESSION: 1. There has been no significant change from 05/19/2019. 2. The stomach and proximal duodenum are distended and fluid-filled. This would be consistent with th e reported history of a duodenal stricture and clinical correlation will be required. 3. There is no CT evidence of duodenal mass lesion. This is not well evaluated by CT. 4. Cholelithiasis. 5. Additional findings as above. Electronically signed by: Benson Arambula M.D. 06/17/2019 6:23 PM
[2019-06-17] MEDS: ENOXAPARIN INJ 40 MG/0.4 ML SYR SQ SCH (18:40)
[2019-06-18] MEDS: SODIUM CHLORIDE 0.9% 1000ML 1,000 ML IV SCH ×2 (01:52→09:33)
[2019-06-18] MEDS: HYDROmorphone INJ 1 MG/ML SYRINGE IV PRN ×4 (05:42→23:33)
[2019-06-18 09:26] LABS: BUN Creatinine Ratio 13.7 (10-20); Calcium 9.2 mg/dl (8.5-10.1); Creatinine Clr Calc Pharmacy 83.2 ml/min; Est GFR (African American) 92.2; Est GFR (Non-African American) 79.6; Potassium 4.9 mmol/L (3.5-5.1)
[2019-06-18 09:27] LABS: Phosphorus 3.5 mg/dl (2.5-4.9)
[2019-06-18] MEDS: ONDANSETRON INJ 2 MG/ML 2 ML VIAL IV PRN (09:33)
--- NOTE | 2019-06-18 11:58 | Family Medicine Progress Note ---
Date of Service June 18, 2019 Assessment & Plan (1) Duodenal stenosis: #Duodenal stenosis Patient has a prolonged history of diarrhea and abdominal pain. She described got symptoms for 12 weeks prior to diagnosis, on Markedly distended stomach without evidence of obstructing mass or volvulus. He subsequently followed up with Dr. Singh in the outpatient setting for an outpatient EGD at which point she was diagnosed with duodenal stenosis. Since that time she is been on liquid diet experiencing significant Pain and unable to sleep each evening. Today she is currently status post EGD performed in the hospital. EGD demonstrated a grade a esophagitis with no bleeding. A significant burden of food/residue was found to gastric body. Finally acquired severe stenosis was found the first portion of the duodenum and was not transversed. A TTS dilator was passed through the scope. Dilation with 10 mm pyloric balloon was performed. -Analgesia with Dilaudid every 6 hours as needed -Clear liquid diet for now -We will obtain PICC line consent after 2:00 this afternoon -Plan to start TPN later today -PRN Zofran for nausea -Gastroenterology consulted appreciate the recommendation -We will consult general surgery on Thursday for further management of her stenosis -CT abdomen pelvis demonstrates no significant change from the one obtained on May 19. There is no evidence of duodenal mass lesion. #History of spinal fusion T5-S1 Patient reports history of chronic pain secondary to spinal fusion, she had had this revised at the [facility]. She has no significant complaints related to this currently. -Monitor for now #Chronic Back Pain Patient with prolonged history of chronic back pain secondary to 3 spinal fusion T5-S1 at home takes Endocet 7.5, 5 times a day. -Analgesia with 1 mg Dilaudid every 6 hours #Aortic stenosis Patient has a history of aortic stenosis, murmur discovered recently. On exam today she has a grade 3 out of 6 systolic ejection murmur does not follow with cardiology. She is currently stable, reports a history of bradycardia. -Monitor for now recommends outpatient cardiology follow-up -Status post IVC filter #Fibromyalgia Patient has a history of on Percocet x5 at home, complaining of 8 out of 10 pain currently -Analgesia as above #Anxiety -Scheduled lorazepam 1 mg every 8 hours per patient request #Insomnia -PRN Ambien 5 mg FENa: Clears and hopefully TPN later today Code Status: Full DVT PPX: IVC filter Lovenox PT/OT: TBD Dispo: Home when cleared by MARIO Pruitt MD PGY 2, FCM This chart was completed utilizing [employer] voice recognition software. Grammatical errors, random word insertions, pronoun errors, and in complete sentences are an occasional consequence of the system. Any questions or concerns about the content, text, or information contained within the body of this dictation should be addressed directly to the physician for clarification. Supervising Physician Co-Signing Physician Notes Patient seen and examined with Dr. Pruitt. I agree with their exam findings, review of systems, assessment and plan. I have personally reviewed the lab work and imaging from today. 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 labs are stable, will have pharmacy prepare TPN Exam: WD WN female, NAD, AAOx3, lungs CTA bilaterally, normal effort, regular S1 S2 no murmurs abdomen soft, NT, ND, +BS spine fused, decreased ROM, tender on exam - Duodenal stricture causing gastric outlet obstruction clears, Zofran PRN will order PICC and start on TPN CT abdomen/pelvis without mass consider general surgery consultation prior to discharge but will wait til Thursday as she wants [facility] - Chronic back pain, chronic chcf narcotics: hold on PO meds use Dilaudid 1mg IV q6 PRN - Anxiety: Ativan scheduled - mild rash: could be allergic rxn to IV contrast, Bendaryl PRN for full details see resident note Subjective Patient sitting upright in her bed this morning in no acute distress. Patient reports overnight she was upset as her lorazepam is PRN and not scheduled she states she went into withdrawal, would like it scheduled every 8 as she takes at home. Otherwise patient reports pain is well controlled, she is tolerating her clear liquid diet, voiding on her own, sleeping. Plan is to place a PICC line for TPN nutrition, and consult general surgery on Thursday. All questions answered no acute concerns Physical Exam Physical Exam: General: Middle-aged female lying in bed in no acute distress HEENT: Normocephalic atraumatic Neck: Normal to visual inspection, trachea midline, negative JVD Cardiac: Grade 3 out of 6 systolic ejection murmur heard loudest at the second right intercostal space, regular rate, regular rhythm no gallops appreciated, normal S1, normal S2, negative pedal edema, negative tach calf tenderness Respiratory: Clear to auscultation bilaterally with symmetrical chest rise, did not appreciate significant wheezes, rales, rhonchi GI: Soft, distended abdomen, less tender to palpation in all 4 quadrants, this is not a new symptom for the patient MSK: Moves all extremities, spinal flexion limited secondary to spinal fusion Skin: Warm, dry, intact Neuro: Alert and oriented x4 Psych: Calm, cooperative, perseverates on her chronic medical conditions Results & Data Vital Signs (Past 12 Hours) Vital Signs Temp Pulse Resp BP Pulse Ox 06/18/19 07:28 36.8 C 87 18 133/84 97 Laboratory Results 06/18/19 Range/Units 08:29 Sodium 136 (136-145) mmol/L Potassium 4.9 (3.5-5.1) mmol/L Chloride 106 (98-107) mmol/L Carbon Dioxide 21 (21-32) mmol/L Anion Gap 8.0 (3-11) BUN 11 (7-18) mg/dl Creatinine 0.80 (0.6-1.2) mg/dl Est Cr Clr Drug Dosing 83.2 ml/min Est GFR ( Amer) 92.2 Est GFR (Non-Af Amer) 79.6 BUN/Creatinine Ratio 13.7 (10-20) Glucose 100 H (70-99) mg/dl Calcium 9.2 (8.5-10.1) mg/dl Phosphorus 3.5 (2.5-4.9) mg/dl Magnesium 2.0 (1.8-2.4) mg/dl Triglycerides 88 (0-150) mg/dl Medications Administered Current Inpatient Medications Enoxaparin Sodium (Lovenox) 40 mg SQ Q24H CINDY Stop: 07/17/19 17:59 Last Admin: 06/17/19 18:40 Dose: 40 mg Documented by: Hydromorphone HCl (Dilaudid) 1 mg IV Q5H PRN PRN Reason: Pain Stop: 07/01/19 18:22 Last Admin: 06/18/19 11:11 Dose: 1 mg Documented by: Sodium Chloride (Nss 1000ml) 1,000 mls @ 125 mls/hr IV .Q8H CINDY Stop: 07/17/19 17:02 Last Admin: 06/18/19 09:33 Dose: 125 mls/hr Documented by: Lorazepam (Ativan) 1 mg in 2 mls @ 2 mls/min IV Q8 PRN PRN Reason: Anxiety Stop: 07/17/19 17:02 Last Admin: 06/18/19 01:43 Dose: 2 mls/min Documented by: Dextrose (D10w) 1,000 mls @ 0 mls/hr IV .Q0M CINDY Stop: 07/17/19 17:29 Ioversol (Optiray 320 100ml) 94 ml IV ONCE PRN PRN Reason: Interaction Checking Stop: 06/21/19 18:08 Last Admin: 06/17/19 18:09 Dose: 94 ml Documented by: Miscellaneous Information (Pharmacy Tpn/Ppn Consult Active) 1 ea N/A UD PRN PRN Reason: Consult Stop: 07/18/19 15:59 Ondansetron HCl (Zofran) 4 mg IV Q6H PRN PRN Reason: Nausea Stop: 07/17/19 17:02 Last Admin: 06/18/19 09:33 Dose: 4 mg Documented by: Zolpidem Tartrate (Ambien) 5 mg PO HS PRN PRN Reason: Sleep Stop: 07/17/19 18:00 PG Care Time/CCT Total # of Minutes Spent Total Time Spent with Patient: Total time spent is greater than 50% in coordination of care (as documented) at patient's floor/unit and/or counseling patient: Resident Activity Tracking Resident Involvement: Resident Care Provided Care Provided: Adult Hospital Medicine
[2019-06-18] MEDS: LORazepam 1 MG/2 ML VIAL IV SCH ×2 (12:50→22:03)
[2019-06-18] MEDS: DiphenhydrAMINE HCL 50 MG/ML VIAL IV PRN (15:24)
[2019-06-18] MEDS ORDERED: TPN/PPN CONSULT PHARMACY PRN (16:00)
[2019-06-18] MEDS ORDERED: CENTRAL PN IV SCH (16:00)
--- NOTE | 2019-06-18 16:13 | Gastrointestinal Consultation ---
Date of Consultation June 18, 2019 Assessment & Plan (1) Duodenal stenosis: await pathology report to see if malignant or not then decide on therapy which may include surgery and/or duodenal stenting wt loss---TPN for nutrition as she is not tolerating po abd pain--from duodenal obstruction GERD--enhanced by duodenal obstruction---PPI. History of Present Illness Reason for Consultation: duodenal stricture Requesting Physician: DR Dewayne Montes Attending Physician: Dewayne Montes, DO History of Present Illness cc abd pain HPI Pt states hx of duodenal ulceration in 2017 and on PPI since then except for 6-8 month period. Presented to DR Dos Santos as outpt for abd pain and diarrhea and subsequent abd distension. Colonoscopy done 05/26/19 to TI normal with TI and and random colon bx neg. She had EGD 05/26/19 stomach full of food and pylorus obstruction. Was sent home on full liquid diet to do EGD at [facility] where dilator equipment present. EGD yesterday food in stomch and duodenal stricture very tight dilated to 10 mm and biopsies taken but could not pass scope beyond, also grade A esophagitis. CT ap. 05/19/19 RML nodule same vs 2016 pancreas atrophy, distended stomach. CT a/p this admit lung nodule same, distended stomach dudoene, gallstone, mild fecal retention. She states she has constant epi pain which was relieved yesterday with vomiting. She feels like on clear liquids since EGD yesterday that stomach is filling up again. She has lost 35 lbs and has severa acid reflux symptoms. Allergies Allergy/AdvReac Type Severity Reaction Status Date / Time metronidazole [From Flagyl] Allergy Severe Hives Verified 06/17/19 13:27 Gold Salts Allergy Intermediate Hives Verified 06/17/19 13:27 nafcillin Allergy Intermediate Hives Verified 06/17/19 13:27 wheat Allergy Intermediate migraines/joint Verified 06/17/19 13:27 pain medroxyprogesterone Allergy Mild HIVES Verified 06/17/19 13:27 Penicillins AdvReac Intermediate Hives Verified 06/17/19 13:27 morphine AdvReac Mild nausea Verified 06/17/19 13:27 /vomit Home Medications Home Medications Medication Instructions Recorded Confirmed Type acetaminophen [Tylenol Extra 1,000 mg PO UD PRN 03/23/19 06/17/19 History Strength] albuterol sulfate [ProAir HFA] 2 puff INHALATION Q6H PRN 03/23/19 06/17/19 History aspirin 325 mg PO BID PRN 03/23/19 06/17/19 History nisblqajud-neglcjfamyxpg-yzpm 1 cap PO DAILY PRN 03/23/19 06/17/19 History calcium carbonate [Calcium 600] 600 mg PO QAM 03/23/19 06/17/19 History cyclobenzaprine 10 mg PO DAILY PRN 03/23/19 06/17/19 History ibuprofen 400 - 800 mg PO Q6H PRN 03/23/19 06/17/19 History lorazepam [Ativan] 1 mg PO TID 03/23/19 06/17/19 History oxycodone-acetaminophen [Endocet] 1 tab PO 5XD 03/23/19 06/17/19 History triamcinolone acetonide 1 applic TOPICAL BID PRN 03/23/19 06/17/19 History ondansetron HCl [Zofran] 4 mg PO BID PRN 06/17/19 06/17/19 History Patient History Medical History Anemia Anxiety Asthma allergy induced---inhaler prn Chronic back pain Degenerative disc disease Fibromyalgia Gastroparesis History of DVT (deep vein thrombosis) 2009--left leg got during sepsis History of duodenal ulcer IBS (irritable bowel syndrome) Migraine Nausea and vomiting after administration of anesthetic agent Osteoarthritis Spinal stenosis Hypertension (Chronic) Surgical History Arnold filter in place 2009 d/t blood clot in left leg History of bilateral tubal ligation History of colonoscopy History of esophagogastroduodenoscopy (EGD) History of laparoscopy x3--for endometriosis History of repair of right rotator cuff History of right oophorectomy History of spinal fusion x3---t5-s1 History of tooth extraction Family History Mother Family history of diabetes mellitus Sister Family history of diabetes mellitus Grandmother (Paternal) Family hx of colon cancer Father Family hx colonic polyps Other No family history of adverse response to anesthesia No significant family history Social History Preferred Language: Kinyarwanda Communication Ability: Effective Pulmonary Specialist Required: No Beliefs That Will Affect Care: None Current Living Situation: Spouse Other Information That Helps Us Care for You: No Feels Safe at Home: Yes Safety Concerns: Feels Safe At This Time Smoking Status: Never smoker Do You Dip or Chew Tobacco: No ; Second Hand Exposure: Yes ( smokes/parents smoked) ; Tobacco Cessation Education Requested by Patient: No Hx Alcohol Use: No Hx Substance Use: No Review of Systems Review of Systems: All systems reviewed & are unremarkable except as noted in HPI & below Physical Exam Constitutional: WD/WN, vitals as above Eyes: PERRL, conjunctivae normal, anicteric sclerae ENMT: external ear and nose normal, oropharynx normal Neck: normal visual inspection and trachea midline Respiratory: normal respiratory effort, lungs clear to auscultation Cardiovascular: RRR, no murmur, no edema Gastrointestinal (Abdomen): positive bowel sounds, soft, no guarding nor rebound Musculoskeletal: no cyanosis or clubbing, extremities motor strength 5/5 Neurologic: PERRL, EOMI, accommodation nl, no face palsy, no dysarthria Psychiatric: A+Ox3, euthymic affect Results & Data Vital Signs (Past 12 Hours) Vital Signs Temp Pulse Resp BP BP Pulse Ox 06/18/19 15:25 36.7 C 86 18 157/85 H 99 06/18/19 07:28 36.8 C 87 18 133/84 97
[2019-06-18] MEDS: ENOXAPARIN INJ 40 MG/0.4 ML SYR SQ SCH (18:39)
[2019-06-18] MEDS: PANTOprazole 40 MG in SYRINGE 0 ML IV SCH (18:39)
[2019-06-19] MEDS: LORazepam 1 MG/2 ML VIAL IV SCH ×3 (05:53→23:03)
[2019-06-19] MEDS: HYDROmorphone INJ 1 MG/ML SYRINGE IV PRN ×3 (05:53→18:08)
[2019-06-19 08:00] LABS: Basophils # (auto) 0.02 K/uL (0-0.2); Basophils % (auto) 0.2 %; Eosinophils # (auto) 1.08 K/uL (0-0.5); Eosinophils % (auto) 10.3 %; Hematocrit (blood only) 40.5 % (37-47); Hemoglobin 12.9 g/dL (12.0-16.0); Immature Granulocytes # (auto) 0.02 K/uL (0.00-0.02); Immature Granulocytes % (auto) 0.2 %; Lymphocytes # (auto) 0.55 K/uL (1.2-3.4); Lymphocytes % (auto) 5.2 %; Mean Corpuscular Hemoglobin 31.6 pg (25-34); Mean Corpuscular Hgb Conc 31.9 g/dL (32-36); Mean Corpuscular Volume 99.3 fL (80-100); Mean Platelet Volume 10.2 fL (7.4-10.4); Monocytes # (auto) 0.72 K/uL (0.11-0.59); Monocytes % (auto) 6.9 %; Neutrophils % (auto) 77.2 %; Platelet Count 377 K/uL (130-400); RDW Coefficient of Variation 14.3 % (11.5-14.5); RDW Standard Deviation 51.5 fL (36.4-46.3); Red Blood Count 4.08 M/uL (4.2-5.4); White Blood Count 10.49 K/uL (4.8-10.8)
[2019-06-19] MEDS: DiphenhydrAMINE HCL 50 MG/ML VIAL IV PRN (08:33)
[2019-06-19 08:37] LABS: Albumin Level 3.3 gm/dl (3.4-5.0); BUN Creatinine Ratio 16.6 (10-20); Calcium 8.8 mg/dl (8.5-10.1); Creatinine Clr Calc Pharmacy 70.8 ml/min; Est GFR (African American) 75.9; Est GFR (Non-African American) 65.5; Potassium 4.1 mmol/L (3.5-5.1)
[2019-06-19 08:40] LABS: Albumin Globulin Ratio 1.1 (0.9-2); Bilirubin,Total 1.6 mg/dl (0.2-1); Globulin 3.1 gm/dl (2.5-4.0); Phosphorus 2.6 mg/dl (2.5-4.9); Total Protein 6.4 gm/dl (6.4-8.2)
[2019-06-19] MEDS ORDERED: hydrOXYzine HCL IM SOLN 50 MG/ML 1 ML VIAL IM STA (09:11)
--- NOTE | 2019-06-19 09:22 | Family Medicine Progress Note ---
Date of Service June 19, 2019 Assessment & Plan (1) Duodenal stenosis: 59yo F PMH: , DVT s/p IVC filter placement, fibromyalgia, leukocytosis admitted after abnormal outpatient EGD findings of duodenal stenosis and significant food burden in gastric body despite liquid diet. Duodenal stenosis -Analgesia with Dilaudid every 6 hours as needed, IV tylenol for breakthrough -Full liquid diet and TPN -PRN Zofran for nausea -Gastroenterology consulted, appreciate recs: awaiting pathology results. Expect by 06/21. Depending on results, consult gen surg or consider transfer to OSH. History of spinal fusion T5-S1/Chronic Back pain -Chronic pain 2/2 spinal fusion, revised at the [facility]. No significant complaints currently. -Continue to monitor -Takes Endocet 7.5, 5 times a day at home. -Analgesia with 1 mg Dilaudid every 6 hours and ofirmev q8h Aortic stenosis -Does not follow with cardiology. She is currently stable, reports a history of bradycardia. -Monitor for now, recommend outpatient cardiology follow-up Pruritis -IV benadryl prn -Given IM hydroxyzine on 06/19 Fibromyalgia -Analgesia as above Anxiety -Scheduled lorazepam 1 mg every 8 hours per patient request Insomnia -PRN Ambien 5 mg FENa: Full liquids TPN Code Status: Full DVT PPX: IVC filter, Lovenox PT/OT: TBD Dispo: awaiting path, med/surg Supervising Physician Co-Signing Physician Notes Patient seen and examined with Dr. Langley. I agree with their exam findings, review of systems, assessment and plan. I have personally reviewed the lab work and imaging from today. patient requests to have full liquids she still has the red rash, feels itchy, attributed to IV contrast, same reaction as before no vomiting back pain controlled discussed plan for awaiting biopsy results, no need for general surgery consult until we get pathology back Exam: WD WN female, NAD, AAOx3, lungs CTA bilaterally, normal effort, regular S1 S2 no murmurs abdomen soft, NT, ND, +BS spine fused, decreased ROM, tender on exam - Duodenal stricture causing gastric outlet obstruction full liquids, Zofran PRN PICC placed and start on TPN CT abdomen/pelvis without mass consider general surgery consultation prior to discharge but will wait for pathology report - Chronic back pain, chronic senior care narcotics: hold on PO meds use Dilaudid 1mg IV q6 PRN - Anxiety: Ativan scheduled - mild rash: could be allergic rxn to IV contrast, Bendaryl PRN for full details see resident note Subjective Patient resting comfortably this AM. Reports some dizziness and continued itchiness from dye on admission. Reports no relief from benadryl. States her pain is not controlled well enough on the dilaudid, stating it only lasts 3-4 hours max. She is requesting IV tylenol. States appetite is improved and requests advancement of diet. Review of Systems Review of Systems: All systems reviewed & are unremarkable except as noted in HPI & below Constitutional: + fatigue; no fever and no body aches Respiratory: no cough and no dyspnea Cardiovascular: no chest pain Gastrointestinal: + bloating and + nausea; no dysphagia Musculoskeletal: + joint pain and + myalgia Integumentary: + rash and + pruritus Neurologic: + dizziness Physical Exam Constitutional: WD/WN, vitals as above + morbidly obese Eyes: PERRL, conjunctivae normal, anicteric sclerae ENMT: Mouth: no TMJ abnormality Neck: normal visual inspection and trachea midline Respiratory: normal respiratory effort, lungs clear to auscultation Cardiovascular: Rate/Rhythm: regular rate and regular rhythm Heart Sounds: + murmur (ISAK) Vessels: no carotid bruit Gastrointestinal (Abdomen): Percussion/Palpation: abdomen soft Musculoskeletal: no cyanosis or clubbing, extremities motor strength 5/5 Neurologic: PERRL, EOMI, accommodation nl, no face palsy, no dysarthria moves all extremities Psychiatric: A+Ox3, euthymic affect Results & Data Vital Signs (Past 12 Hours) Vital Signs Temp Pulse Resp BP BP Pulse Ox 06/19/19 07:00 98.8 F 96 H 18 132/80 96 06/19/19 04:18 97.9 F 88 18 117/70 100 Laboratory Results 06/19/19 06/19/19 06/18/19 Range/Units 07:46 07:46 08:29 WBC 10.49 (4.8-10.8) K/uL RBC 4.08 L (4.2-5.4) M/uL Hgb 12.9 (12.0-16.0) g/dL Hct 40.5 (37-47) % MCV 99.3 (80-100) fL MCH 31.6 (25-34) pg MCHC 31.9 L (32-36) g/dL RDW Std Deviation 51.5 H (36.4-46.3) fL RDW Coeff of [place] 14.3 (11.5-14.5) % Plt Count 377 (130-400) K/uL MPV 10.2 (7.4-10.4) fL Immature Gran % (Auto) 0.2 % Neut % (Auto) 77.2 % Lymph % (Auto) 5.2 % Stark % (Auto) 6.9 % Eos % (Auto) 10.3 % Baso % (Auto) 0.2 % Immature Gran # (Auto) 0.02 (0.00-0.02) K/uL Neut # (Auto) 8.10 H (1.4-6.5) K/uL Lymph # (Auto) 0.55 L (1.2-3.4) K/uL Stark # (Auto) 0.72 H (0.11-0.59) K/uL Eos # (Auto) 1.08 H (0-0.5) K/uL Baso # (Auto) 0.02 (0-0.2) K/uL Sodium 136 136 (136-145) mmol/L Potassium 4.1 D 4.9 (3.5-5.1) mmol/L Chloride 107 106 (98-107) mmol/L Carbon Dioxide 24 21 (21-32) mmol/L Anion Gap 5.0 8.0 (3-11) BUN 16 11 (7-18) mg/dl Creatinine 0.94 0.80 (0.6-1.2) mg/dl Est Cr Clr Drug Dosing 70.8 83.2 ml/min Est GFR ( Amer) 75.9 92.2 Est GFR (Non-Af Amer) 65.5 79.6 BUN/Creatinine Ratio 16.6 13.7 (10-20) Glucose 121 H 100 H (70-99) mg/dl Calcium 8.8 9.2 (8.5-10.1) mg/dl Phosphorus 2.6 3.5 (2.5-4.9) mg/dl Magnesium 2.0 2.0 (1.8-2.4) mg/dl Total Bilirubin 1.6 H (0.2-1) mg/dl AST 14 L (15-37) U/L ALT 15 (12-78) U/L Alkaline Phosphatase 59 (45-117) U/L Total Protein 6.4 (6.4-8.2) gm/dl Albumin 3.3 L (3.4-5.0) gm/dl Globulin 3.1 (2.5-4.0) gm/dl Albumin/Globulin Ratio 1.1 (0.9-2) Triglycerides 88 (0-150) mg/dl Medications Administered Current Inpatient Medications Acetaminophen (Ofirmev) 1,000 mg IV Q8H PRN PRN Reason: Pain Stop: 07/19/19 08:52 Diphenhydramine HCl (Benadryl) 25 mg IV Q6H PRN PRN Reason: Itching Stop: 07/18/19 14:45 Last Admin: 06/19/19 08:33 Dose: 25 mg Documented by: Enoxaparin Sodium (Lovenox) 40 mg SQ Q24H CINDY Stop: 07/17/19 17:59 Last Admin: 06/18/19 18:39 Dose: 40 mg Documented by: Heparin Sodium (Beef Lung) (Heparin Sod 10 Unit/Ml Flush) 5 ml FLUSH PRN PRN PRN Reason: Flush Stop: 07/18/19 13:53 Hydromorphone HCl (Dilaudid) 1 mg IV Q5H PRN PRN Reason: Pain Stop: 07/01/19 18:22 Last Admin: 06/19/19 05:53 Dose: 1 mg Documented by: Dextrose (D10w) 1,000 mls @ 0 mls/hr IV .Q0M CINDY Stop: 07/17/19 17:29 Lorazepam (Ativan) 1 mg in 2 mls @ 2 mls/min IV Q8H CINDY Stop: 07/18/19 13:59 Last Admin: 06/19/19 05:53 Dose: 2 mls/min Documented by: Nutrition (Parenteral) (Custom Central Pn) 1,407.49 mls @ 58.65 mls/hr IV .Q24H CINDY; Protocol Stop: 06/19/19 15:59 Last Admin: 06/18/19 16:53 Dose: 58.7 mls/hr Documented by: Pantoprazole Sodium 40 mg/ (Syringe) 10 mls @ 5 mls/min IV DAILY@2100 CINDY Stop: 07/18/19 17:59 Last Admin: 06/18/19 18:39 Dose: 5 mls/min Documented by: Ioversol (Optiray 320 100ml) 94 ml IV ONCE PRN PRN Reason: Interaction Checking Stop: 06/21/19 18:08 Last Admin: 06/17/19 18:09 Dose: 94 ml Documented by: Miscellaneous Information (Pharmacy Tpn/Ppn Consult Active) 1 ea N/A UD PRN PRN Reason: Consult Stop: 07/18/19 15:59 Ondansetron HCl (Zofran) 4 mg IV Q6H PRN PRN Reason: Nausea Stop: 07/17/19 17:02 Last Admin: 06/18/19 09:33 Dose: 4 mg Documented by: Zolpidem Tartrate (Ambien) 5 mg PO HS PRN PRN Reason: Sleep Stop: 07/17/19 18:00 PG Care Time/CCT Total # of Minutes Spent Total Time Spent with Patient: Total time spent is greater than 50% in coordination of care (as documented) at patient's floor/unit and/or counseling patient: Resident Activity Tracking Resident Involvement: Resident Care Provided Care Provided: Adult Hospital Medicine
[2019-06-19] MEDS ORDERED: CENTRAL PN IV SCH (16:00)
--- NOTE | 2019-06-19 17:44 | Gastroenterology Progress Note ---
Date of Service June 19, 2019 Assessment & Plan (1) Duodenal stenosis: await pathology report to see if malignant or not then decide on therapy which may include surgery and/or duodenal stenting wt loss---TPN for nutrition as she is not tolerating po abd pain--from duodenal obstruction GERD--enhanced by duodenal obstruction---PPI. I am going off service tomorrow at [address] Dos Santos is assuming GI care then. Subjective cc abd pain HPI Pt at the moment has some abd pain but when tries to eat clears it worsens. Review of Systems Respiratory: no dyspnea Cardiovascular: no chest pain Physical Exam Constitutional: WD/WN, vitals as above Respiratory: normal respiratory effort, lungs clear to auscultation Cardiovascular: RRR, no murmur, no edema Gastrointestinal (Abdomen): normal bowel sounds, soft, nontender, no hepatosplenomegaly Neurologic: PERRL, EOMI, accommodation nl, no face palsy, no dysarthria Psychiatric: A+Ox3, euthymic affect Results & Data Vital Signs (Past 12 Hours) Vital Signs Temp Pulse Resp BP Pulse Ox 06/19/19 15:00 36.8 C 92 H 16 121/78 98 06/19/19 07:00 37.1 C 96 H 18 132/80 96
[2019-06-19] MEDS: ENOXAPARIN INJ 40 MG/0.4 ML SYR SQ SCH (18:08)
[2019-06-19] MEDS: ACETAMINOPHEN 1000 MG/100 ML IV IV PRN (21:24)
[2019-06-19] MEDS: PANTOprazole 40 MG in SYRINGE 0 ML IV SCH (21:25)
[2019-06-19] MEDS: hydrOXYzine HCL IM SOLN 50 MG/ML 1 ML VIAL IM PRN (21:25)
[2019-06-20] MEDS: HYDROmorphone INJ 1 MG/ML SYRINGE IV PRN ×3 (01:23→14:59)
[2019-06-20] MEDS: hydrOXYzine HCL IM SOLN 50 MG/ML 1 ML VIAL IM PRN ×2 (04:22→17:07)
[2019-06-20] MEDS: LORazepam 1 MG/2 ML VIAL IV SCH ×3 (06:15→21:25)
[2019-06-20] MEDS: ACETAMINOPHEN 1000 MG/100 ML IV IV PRN ×2 (08:01→18:19)
[2019-06-20 08:37] LABS: Albumin Level 3.1 gm/dl (3.4-5.0); BUN Creatinine Ratio 24.5 (10-20); Calcium 8.9 mg/dl (8.5-10.1); Creatinine Clr Calc Pharmacy 74.8 ml/min; Est GFR (African American) 81.1
[2019-06-20 08:40] LABS: Bilirubin,Total 1.1 mg/dl (0.2-1); Globulin 3.1 gm/dl (2.5-4.0); Total Protein 6.2 gm/dl (6.4-8.2)
[2019-06-20 08:46] LABS: Basophils # (auto) 0.01 K/uL (0-0.2); Basophils % (auto) 0.1 %; Eosinophils # (auto) 0.79 K/uL (0-0.5); Hematocrit (blood only) 42.8 % (37-47); Hemoglobin 13.8 g/dL (12.0-16.0); Immature Granulocytes # (auto) 0.02 K/uL (0.00-0.02); Immature Granulocytes % (auto) 0.2 %; Mean Corpuscular Hemoglobin 31.9 pg (25-34); Mean Corpuscular Hgb Conc 32.2 g/dL (32-36); Mean Corpuscular Volume 99.1 fL (80-100); Monocytes # (auto) 0.73 K/uL (0.11-0.59); Monocytes % (auto) 7.4 %; Neutrophils # (auto) 7.78 K/uL (1.4-6.5); Neutrophils % (auto) 78.3 %; Platelet Count 320 K/uL (130-400); RDW Coefficient of Variation 14.3 % (11.5-14.5); RDW Standard Deviation 51.9 fL (36.4-46.3); Red Blood Count 4.32 M/uL (4.2-5.4); White Blood Count 9.93 K/uL (4.8-10.8)
--- NOTE | 2019-06-20 09:54 | Anesthesiology Progress Note ---
Date of Service June 20, 2019 Anesthesia Post Procedure Vital Signs Vital Signs: Temp Pulse Resp BP BP Pulse Ox 06/20/19 08:30 36.4 C L 06/20/19 07:50 38.1 C H 103 H 20 116/76 98 06/19/19 23:19 36.7 C 102 H 18 156/91 H 100 06/19/19 15:00 36.8 C 92 H 16 121/78 98 Pain Intensity Back: Pain Intensity: 9 Abdomen: Pain Intensity: 6 Notes Mental Status: alert / awake / arousable and participated in evaluation Nausea / Vomiting: adequately controlled Pain: adequately controlled Airway Patency, RR, SpO2: stable & adequate BP & HR: stable & adequate Hydration State: stable & adequate Anesthetic Complications: no major complications apparent and Pt Satisfied with anesthetic care
--- NOTE | 2019-06-20 13:56 | Progress Note ---
DATE: 06/20/2019 SUBJECTIVE: The patient reports that she has no more nausea or vomiting. She has been on TPN since Thursday, the . Her CT scan shows some stricture at the gastroduodenal area that persists. Her stomach was full of fluid on her CT on Thursday. I reviewed her pathology of the biopsy that I took from the strictured area and it shows a lot of acute inflammatory cells, but no signs of malignancy and her CT did not show any mass or enlarged lymph nodes. PHYSICAL EXAMINATION: GENERAL: The patient appears in no acute distress. She is receiving TPN through a PICC line. VITAL SIGNS: Blood pressure is 104/70, pulse 115. She is afebrile. Room air saturations 98%. IMPRESSION AND PLAN: The patient has duodenal obstruction at the apex of the bulb that was dilated on Thursday up to 10 mm. She still has functional gastric outlet obstruction. Some of that may be from her stomach being overdistended for a long period of time and losing its elasticity. I plan on continuing total parenteral nutrition for now and keep making her n.p.o. overnight to, hopefully, empty some more fluid out of her stomach and the plan will be to repeat her EGD and hopefully re-dilate the stricture tomorrow and this will be done in the operating room with intubation to protect her airway.
--- NOTE | 2019-06-20 14:56 | Family Medicine Progress Note ---
Date of Service June 20, 2019 Assessment & Plan (1) Duodenal stenosis: 59yo F PMH: , DVT s/p IVC filter placement, fibromyalgia, leukocytosis admitted after abnormal outpatient EGD findings of duodenal stenosis and significant food burden in gastric body despite liquid diet. Duodenal stenosis Patient has not been able to tolerate much of the full liquid diet. She would like to continue with clear liquid and full liquids here and there, but she was only able to drink water and gatorade this morning, soup and pudding were too uncomfortable. -PRN Zofran for nausea -Gastroenterology consulted, appreciate recs: s/p EGD with stenosis dilatation. awaiting pathology results. Expect by 06/21. Depending on results, consult gen surg or consider transfer to OSH. Diarrhea Will check for C. Diff History of spinal fusion T5-S1/Chronic Back pain -Chronic pain 2/2 spinal fusion, revised at the [facility]. No significant complaints currently. -Continue to monitor -Takes Endocet 7.5, 5 times a day at home. -Analgesia with 1 mg Dilaudid every 6 hours and ofirmev q8h Aortic stenosis -Does not follow with cardiology. -Monitor for now, recommend outpatient cardiology follow-up Pruritis -IV benadryl prn -Given IM hydroxyzine on 06/19 Fibromyalgia -Analgesia as above Anxiety -Scheduled lorazepam 1 mg every 8 hours per patient request FENa: Full liquids TPN Code Status: Full DVT PPX: IVC filter, Lovenox Dispo: awaiting path, med/surg Supervising Physician Co-Signing Physician Notes Resident Physician Supervision Note: I independently interviewed and examined the patient and verified the wiley history and physical, reviewed labs and image studies, discussed the case with the resident Dr. Browning and agree with the findings and care plan. Subjective Sherlyn Vital is doing okay today, she is complaining of pain secondary to her fibromyalgia and being stuck in her hospital bed. She does not have any other questions or concerns and is eagerly awaiting the results of her biopsy. Review of Systems Review of Systems: All systems reviewed & are unremarkable except as noted in HPI & below Physical Exam Physical Exam: Constitutional: 59 year old woman appearing stated age in mild distress. Eyes: anicteric sclerae, EOMMI Respiratory: Good air entry globally, Lung sounds vesicular, chest expansion symmetric Cardiovascular: Regular rate and rhythm, no m/r/s/g, no lower limb edema GI: abdomen soft, mild epigastric tenderness, no masses palpable, abdomen obese Skin: No rashes, warm and dry Results & Data Vital Signs (Past 12 Hours) Vital Signs Temp Pulse Resp BP BP Pulse Ox 06/20/19 11:46 36.8 C 115 H 18 104/70 98 06/20/19 08:30 36.4 C L 06/20/19 07:50 38.1 C H 103 H 20 116/76 98 PG Care Time/CCT Total # of Minutes Spent Total Time Spent with Patient: Total time spent is greater than 50% in coordination of care (as documented) at patient's floor/unit and/or counseling patient: Resident Activity Tracking Resident Involvement: Resident Care Provided Care Provided: Adult Hospital Medicine
[2019-06-20] MEDS ORDERED: CENTRAL PN IV SCH (16:00)
[2019-06-20] MEDS: ENOXAPARIN INJ 40 MG/0.4 ML SYR SQ SCH (17:09)
[2019-06-20] MEDS ORDERED: DiphenhydrAMINE HCL 50 MG/ML VIAL IV PRN (18:50)
[2019-06-20] MEDS: PANTOprazole 40 MG in SYRINGE 0 ML IV SCH (21:24)
[2019-06-21] MEDS: HYDROmorphone INJ 1 MG/ML SYRINGE IV PRN ×3 (00:06→21:23)
[2019-06-21] MEDS: ACETAMINOPHEN 1000 MG/100 ML IV IV PRN ×2 (03:11→12:59)
[2019-06-21] MEDS: hydrOXYzine HCL IM SOLN 50 MG/ML 1 ML VIAL IM PRN ×2 (03:55→20:25)
[2019-06-21] MEDS: LORazepam 1 MG/2 ML VIAL IV SCH ×3 (05:52→21:22)
[2019-06-21 07:37] LABS: Basophils # (auto) 0.02 K/uL (0-0.2); Basophils % (auto) 0.2 %; Eosinophils # (auto) 1.24 K/uL (0-0.5); Eosinophils % (auto) 12.5 %; Hematocrit (blood only) 42.2 % (37-47); Hemoglobin 13.9 g/dL (12.0-16.0); Immature Granulocytes # (auto) 0.03 K/uL (0.00-0.02); Immature Granulocytes % (auto) 0.3 %; Lymphocytes # (auto) 0.81 K/uL (1.2-3.4); Lymphocytes % (auto) 8.1 %; Mean Corpuscular Hemoglobin 32.3 pg (25-34); Mean Corpuscular Hgb Conc 32.9 g/dL (32-36); Mean Corpuscular Volume 98.1 fL (80-100); Mean Platelet Volume 10.4 fL (7.4-10.4); Monocytes # (auto) 0.77 K/uL (0.11-0.59); Monocytes % (auto) 7.7 %; Neutrophils # (auto) 7.08 K/uL (1.4-6.5); Neutrophils % (auto) 71.2 %; Platelet Count 320 K/uL (130-400); RDW Coefficient of Variation 14.5 % (11.5-14.5); RDW Standard Deviation 51.2 fL (36.4-46.3); White Blood Count 9.95 K/uL (4.8-10.8)
[2019-06-21 08:13] LABS: Albumin Level 2.9 gm/dl (3.4-5.0); BUN Creatinine Ratio 30.7 (10-20); Calcium 8.4 mg/dl (8.5-10.1); Creatinine Clr Calc Pharmacy 79.3 ml/min; Est GFR (African American) 86.9; Potassium 3.4 mmol/L (3.5-5.1)
[2019-06-21 08:16] LABS: Albumin Globulin Ratio 0.9 (0.9-2); Bilirubin,Total 1.3 mg/dl (0.2-1); Globulin 3.3 gm/dl (2.5-4.0); Phosphorus 2.7 mg/dl (2.5-4.9); Total Protein 6.2 gm/dl (6.4-8.2)
[2019-06-21] MEDS ORDERED: SODIUM CHLORIDE 0.9% 1000ML 1,000 ML IV ONE (08:35)
--- NOTE | 2019-06-21 12:33 | Family Medicine Progress Note ---
Date of Service June 21, 2019 Assessment & Plan (1) Duodenal stenosis: 59yo F PMH: , DVT s/p IVC filter placement, fibromyalgia, leukocytosis admitted after abnormal outpatient EGD findings of duodenal stenosis and significant food burden in gastric body despite liquid diet. Duodenal stenosis Patient will get repeat EGD today under anesthesia and intubated to prevent aspiration Will suction stomach contents and attempt to further dilate stricture while also taking further biopsies of the constricted tissue. Continuing Analgesia with Dilaudid every 6 hours as needed, IV tylenol for breakthrough NPO, TPN running Gave 1 L normal saline for soft pressures and orthostasis -PRN Zofran for nausea Pathology results still pending from initial EGD History of spinal fusion T5-S1/Chronic Back pain -Chronic pain 2/2 spinal fusion, revised at the [facility]. Patient uncomfortable in hospital bed, but tells me she always has back pain -Continue to monitor -Takes Endocet 7.5, 5 times a day at home. -Analgesia with 1 mg Dilaudid every 6 hours and ofirmev q8h Aortic stenosis -Does not follow with cardiology. -Monitor for now, recommend outpatient cardiology follow-up Pruritis -IV benadryl prn -Given IM hydroxyzine on 06/19 Fibromyalgia -Analgesia as above Anxiety -Scheduled lorazepam 1 mg every 8 hours per patient request FENa: Full liquids TPN Code Status: Full DVT PPX: IVC filter, Lovenox Dispo: awaiting path, med/surg Supervising Physician Co-Signing Physician Notes Resident Physician Supervision Note: I independently interviewed and examined the patient and verified the wiley history and physical, reviewed labs and image studies, discussed the case with the resident Dr. Browning and agree with the findings and care plan. Subjective Sherlyn Vital sitting up in bed, tells me she feels dehydrated and dizzy. She does not have much abdominal pain, but her back has been "killing her" She has not had any vomiting, and is NPO for another EGD later today. Review of Systems Review of Systems: All systems reviewed & are unremarkable except as noted in HPI & below Physical Exam Physical Exam: Constitutional: 59 year old woman appearing stated age in mild distress. Eyes: anicteric sclerae, EOMMI Respiratory: Good air entry globally, Lung sounds vesicular, chest expansion symmetric Cardiovascular: Regular rate and rhythm, no m/r/s/g, no lower limb edema GI: abdomen soft, mild epigastric tenderness, no masses palpable, abdomen obese Skin: No rashes, warm and dry Results & Data Vital Signs (Past 12 Hours) Vital Signs Temp Pulse Resp BP Pulse Ox 06/21/19 11:17 37.2 C 101 H 22 136/78 97 06/21/19 09:54 102 H 18 142/80 H 06/21/19 07:14 36.9 C 96 H 22 90/61 L 97 PG Care Time/CCT Total # of Minutes Spent Total Time Spent with Patient: Total time spent is greater than 50% in coor dination of care (as documented) at patient's floor/unit and/or counseling patient: Resident Activity Tracking Resident Involvement: Resident Care Provided Care Provided: Adult Hospital Medicine
--- NOTE | 2019-06-21 14:43 | Anesthesiology Consultation ---
Date of Service June 21, 2019 Assessment & Plan (1) Encounter for pre-operative examination: Chart Review Chart Review: Acceptable Risk for Surgery Consults Requested none ASA ASA3 Proposed Anesthesia Anesthesia Type: General Risk / Benefits Reviewed With: PT / POA / Parent / Guardian, Accepts Plan and Informed Consent Obtained Additional Notes Plan for RSI due to aspiration risk. TPN infusing via pick line. PIV access in left hand. History Surgery Operation Date: 06/17/19 14:00 Proposed Procedures p Esophagogastroduodenoscopy Dr Levon Dos Santos Operation Date: 06/21/19 08:10 Proposed Procedures p Esophagogastroduodenoscopy - Vinayak Dos Santos Height/Weight Height: 5 ft 4 in Weight: 96.4 kg Allergies Allergy/AdvReac Type Severity Reaction Status Date / Time metronidazole [From Flagyl] Allergy Severe Hives Verified 06/17/19 13:27 Gold Salts Allergy Intermediate Hives Verified 06/17/19 13:27 nafcillin Allergy Intermediate Hives Verified 06/17/19 13:27 wheat Allergy Intermediate migraines/joint Verified 06/17/19 13:27 pain medroxyprogesterone Allergy Mild HIVES Verified 06/17/19 13:27 peanut Allergy Unknown Migraine Verified 06/19/19 10:22 shellfish derived Allergy Unknown Migraine Verified 06/19/19 10:22 Penicillins AdvReac Intermediate Hives Verified 06/17/19 13:27 morphine AdvReac Mild nausea Verified 06/17/19 13:27 /vomit Medications Home Medications Medication Instructions Recorded Confirmed Last Taken acetaminophen [Tylenol Extra 1,000 mg PO UD PRN 03/23/19 06/17/19 06/17/19 08:00 Strength] albuterol sulfate [ProAir HFA] 2 puff INHALATION Q6H PRN 03/23/19 06/17/19 Unknown aspirin 325 mg PO BID PRN 03/23/19 06/17/19 06/10/19 [id number] 1 cap PO DAILY PRN 03/23/19 06/17/19 Unknown calcium carbonate [Calcium 600] 600 mg PO QAM 03/23/19 06/17/19 03/23/19 cyclobenzaprine 10 mg PO DAILY PRN 03/23/19 06/17/19 03/23/19 5 mg ibuprofen 400 - 800 mg PO Q6H PRN 03/23/19 06/17/19 06/17/19 08:00 lorazepam [Ativan] 1 mg PO TID 03/23/19 06/17/19 06/17/19 08:00 oxycodone-acetaminophen [Endocet] 1 tab PO 5XD 03/23/19 06/17/19 06/17/19 08:00 triamcinolone acetonide 1 applic TOPICAL BID PRN 03/23/19 06/17/19 Unknown ondansetron HCl [Zofran] 4 mg PO BID PRN 06/17/19 06/17/19 06/14/19 Active Medications Generic Name Dose Route Start Last Admin Trade Name Freq PRN Reason Stop Dose Admin Acetaminophen 1,000 mg 06/19/19 08:53 06/21/19 12:59 Ofirmev IV 07/19/19 08:52 1,000 mg Q8H PRN Administration Pain Diphenhydramine HCl 25 mg 06/18/19 14:46 06/19/19 08:33 Benadryl IV 07/18/19 14:45 25 mg Q6H PRN Administration Itching Enoxaparin Sodium 40 mg 06/17/19 18:00 06/20/19 17:09 Lovenox SQ 07/17/19 17:59 40 mg Q24H CINDY Administration Hydromorphone HCl 1 mg 06/18/19 00:16 06/21/19 10:02 Dilaudid IV 07/01/19 18:22 1 mg Q5H PRN Administration Pain Hydroxyzine HCl 50 mg 06/19/19 20:23 06/21/19 03:55 Vistaril IM 07/19/19 20:29 50 mg Q6H PRN Administration itching Lorazepam 1 mg in 2 mls @ 2 mls/min 06/18/19 14:00 06/21/19 14:04 Ativan IV 07/18/19 13:59 2 mls/min Q8H CINDY Administration Pantoprazole Sodium 40 mg/ 10 mls @ 5 mls/min 06/18/19 18:00 06/20/19 21:24 Syringe IV 07/18/19 17:59 5 mls/min DAILY@2100 CINDY Administration Nutrition (Parenteral) 1,713.34 mls @ 71.38 mls/hr 06/20/19 16:00 06/20/19 16:05 Custom Central Pn IV 06/21/19 15:59 71.4 mls/hr .Q24H CINDY Administration Protocol Ioversol 94 ml 06/17/19 18:09 06/17/19 18:09 Optiray 320 100ml IV 06/21/19 18:08 94 ml ONCE PRN Administration Interaction Checking Ondansetron HCl 4 mg 06/17/19 17:03 06/18/19 09:33 Zofran IV 07/17/19 17:02 4 mg Q6H PRN Administration Nausea NPO Date Last Intake of Fluids: 06/17/19 Time Last Intake of Fluids: 00:00 Date Last Intake of Solids: 06/17/19 Time Last Intake of Solids: 00:00 Past Medical History Medical History Anemia Anxiety Asthma allergy induced---inhaler prn Chronic back pain Degenerative disc disease Fibromyalgia Gastroparesis History of DVT (deep vein thrombosis) 2009--left leg got during sepsis History of duodenal ulcer IBS (irritable bowel syndrome) Migraine Nausea and vomiting after administration of anesthetic agent Osteoarthritis Spinal stenosis Hypertension (Chronic) Exercise / Class Metabolic Activity II 4-5 Yardwork/Stairs/Walk up hill Negative for chest pain or shortness of breath. Past Family History Family History Mother Family history of diabetes mellitus Sister Family history of diabetes mellitus Grandmother (Paternal) Family hx of colon cancer Father Family hx colonic polyps Other No family history of adverse response to anesthesia No significant family history Past Surgical History Surgical History [place] filter in place 2009 d/t blood clot in left leg History of bilateral tubal ligation History of colonoscopy History of esophagogastroduodenoscopy (EGD) History of laparoscopy x3--for endometriosis History of repair of right rotator cuff History of right oophorectomy History of spinal fusion x3---t5-s1 History of tooth extraction Past Anesthesia History No Hx of Anesthesia Complications and No Family Hx of Anesthesia Complications History of PONV No Hx of Motion Sickness and History of PONV Social History Smoking Status: Never smoker Do You Dip or Chew Tobacco: No Hx Alcohol Use: No Hx Substance Use: No substance use type: does not use Review of Systems Negative for chest pain or shortness of breath. Physical Exam Vital Signs Last Vital Signs Temp 37.2 C 06/21/19 11:17 Pulse 101 H 06/21/19 11:17 Resp 22 06/21/19 11:17 BP 136/78 06/21/19 11:17 Pulse Ox 97 06/21/19 11:17 Constitutional + obese ENMT Mouth: no TMJ abnormality and oral opening not small Thyromental Distance: > or= 3.5 Finger Breadths Mallampati Class: I Mouth / Teeth: 1. Broken Neck normal visual inspection; neck extension not limited Respiratory normal respiratory effort Auscultation: lungs clear to auscultation bilaterally Cardiovascular Rate/Rhythm: regular rate and regular rhythm Heart Sounds: + murmur (ISAK) Neurologic moves all extremities Psychiatric Orientation: alert and oriented x 3 Testing Laboratory Results 06/21/19 07:19 06/21/19 07:19
--- NOTE | 2019-06-21 14:54 | History & Physical Report ---
Date of Service June 21, 2019 History of Present Illness Chief Complaint: GOO Primary Care Provider: Kevin Veliz DO For EGD in OR Allergies Allergy/AdvReac Type Severity Reaction Status Date / Time metronidazole [From Flagyl] Allergy Severe Hives Verified 06/17/19 13:27 Gold Salts Allergy Intermediate Hives Verified 06/17/19 13:27 nafcillin Allergy Intermediate Hives Verified 06/17/19 13:27 wheat Allergy Intermediate migraines/joint Verified 06/17/19 13:27 pain medroxyprogesterone Allergy Mild HIVES Verified 06/17/19 13:27 peanut Allergy Unknown Migraine Verified 06/19/19 10:22 shellfish derived Allergy Unknown Migraine Verified 06/19/19 10:22 Penicillins AdvReac Intermediate Hives Verified 06/17/19 13:27 morphine AdvReac Mild nausea Verified 06/17/19 13:27 /vomit Home Medications Home Medications Medication Instructions Recorded Confirmed Type acetaminophen [Tylenol Extra 1,000 mg PO UD PRN 03/23/19 06/17/19 History Strength] albuterol sulfate [ProAir HFA] 2 puff INHALATION Q6H PRN 03/23/19 06/17/19 History aspirin 325 mg PO BID PRN 03/23/19 06/17/19 History [id number]-hcrk 1 cap PO DAILY PRN 03/23/19 06/17/19 History calcium carbonate [Calcium 600] 600 mg PO QAM 03/23/19 06/17/19 History cyclobenzaprine 10 mg PO DAILY PRN 03/23/19 06/17/19 History ibuprofen 400 - 800 mg PO Q6H PRN 03/23/19 06/17/19 History lorazepam [Ativan] 1 mg PO TID 03/23/19 06/17/19 History oxycodone-acetaminophen [Endocet] 1 tab PO 5XD 03/23/19 06/17/19 History triamcinolone acetonide 1 applic TOPICAL BID PRN 03/23/19 06/17/19 History ondansetron HCl [Zofran] 4 mg PO BID PRN 06/17/19 06/17/19 History Past Med/Surg History Medical History Anemia Anxiety Asthma allergy induced---inhaler prn Chronic back pain Degenerative disc disease Fibromyalgia Gastroparesis History of DVT (deep vein thrombosis) 2009--left leg got during sepsis History of duodenal ulcer IBS (irritable bowel syndrome) Migraine Nausea and vomiting after administration of anesthetic agent Osteoarthritis Spinal stenosis Hypertension (Chronic) Surgical History [place] filter in place 2009 d/t blood clot in left leg History of bilateral tubal ligation History of colonoscopy History of esophagogastroduodenoscopy (EGD) History of laparoscopy x3--for endometriosis History of repair of right rotator cuff History of right oophorectomy History of spinal fusion x3---t5-s1 History of tooth extraction Family History Mother Family history of diabetes mellitus Sister Family history of diabetes mellitus Grandmother (Paternal) Family hx of colon cancer Father Family hx colonic polyps Other No family history of adverse response to anesthesia No significant family history Social History Preferred Language: Japanese Communication Ability: Effective 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 Beliefs That Will Affect Care: None marital status: Current Living Situation: Spouse Other Information That Helps Us Care for You: No Feels Safe at Home: Yes Safety Concerns: Feels Safe At This Time Smoking Status: Never smoker Do You Dip or Chew Tobacco: No ; Second Hand Exposure: Yes ( smokes/parents smoked) ; Tobacco Cessation Education Requested by Patient: No Hx Alcohol Use: No Hx Substance Use: No Physical Exam Constitutional: well developed Respiratory: normal respiratory effort Cardiovascular: Rate/Rhythm: regular rate and regular rhythm Gastrointestinal (Abdomen): Percussion/Palpation: + tympanic to percussion Results & Data Vital Signs (Past 12 Hours) Vital Signs Temp Pulse Resp BP BP Pulse Ox 06/21/19 14:48 37.2 C 117 H 20 97/72 L 96 06/21/19 11:17 37.2 C 101 H 22 136/78 97 06/21/19 09:54 102 H 18 142/80 H 06/21/19 07:14 36.9 C 96 H 22 90/61 L 97 Code Status & VTE Plan VTE Prophylaxis Plan VTE Prophylaxis will be ordered: Yes
[2019-06-21] MEDS ORDERED: SODIUM CHLORIDE 0.9% 1000ML 1,000 ML IV SCH (15:00)
[2019-06-21] MEDS ORDERED: fentaNYL citrate 100 MCG/2 ML VIAL IV PRN (15:02)
[2019-06-21] MEDS ORDERED: ONDANSETRON INJ 2 MG/ML 2 ML VIAL IV PRN (15:02)
[2019-06-21] MEDS ORDERED: ATROPINE SULFATE 0.1 MG/ML 10ML SYR IV PRN (15:02)
[2019-06-21] MEDS ORDERED: ePHEDrine sulfate 50 MG/ML AMP IV PRN (15:02)
[2019-06-21] MEDS ORDERED: SUCCINYLCHOLINE 100MG/5ML SYR ONE (15:27)
[2019-06-21] MEDS ORDERED: LIDOCAINE HCL 2% 2 ML VIAL/AMP(20MG/ML) INFIL ONE (15:27)
[2019-06-21] MEDS ORDERED: DEXAMETHASONE SOD INJ 4 MG/ML VIAL ONE (15:27)
[2019-06-21] MEDS ORDERED: PROPOFOL IV EMULSION 10 MG/ML 20 ML VIAL IV ONE (15:27)
[2019-06-21] MEDS ORDERED: ONDANSETRON INJ 2 MG/ML 2 ML VIAL ONE ×2 (15:27→15:30)
[2019-06-21] MEDS ORDERED: METOCLOPRAMIDE HCL INJ 5 MG/ML 2 ML VIAL ONE (15:27)
[2019-06-21] MEDS ORDERED: fentaNYL citrate 100 MCG/2 ML VIAL ONE (15:32)
--- NOTE | 2019-06-21 15:41 | GI REPORT ---
Patient Name: Sherlyn Vital Procedure Date: 06/21/2019 2:48 PM Date of : 1960 Admit Type: Inpatient Age: 59 Gender: Female Attending MD: Vinayak Dos Santos MD Procedure: Upper GI endoscopy Providers: Vinayak Dos Santos MD Referring MD: Vinayak Dos Santos MD Indications: GOO Medicines: General Anesthesia Complications: No immediate complications. Estimated Blood Loss: Estimated blood loss was minimal. Procedure: Pre-Anesthesia Assessment: - Prior to the procedure, a History and Physical was performed, and patient medications, allergies and sensitivities were reviewed. The patient's tolerance of previous anesthesia was reviewed. - The risks and benefits of the procedure and the sedation options and risks were discussed with the patient. All questions were answered and informed consent was obtained. - The risks and benefits of the procedure and the sedation options and risks were discussed with the patient. All questions were answered and informed consent was obtained. After obtaining informed consent, the endoscope was passed under direct vision. Throughout the procedure, the patient's blood pressure, pulse, and oxygen saturations were monitored continuously. The Endoscope was introduced through the mouth, and advanced to the second part of duodenum. The upper GI endoscopy was accomplished without difficulty. The patient tolerated the procedure well. Findings: The Z-line was regular and was found 36 cm from the incisors. A small amount of food (residue) was found in the gastric fundus. The entire examined stomach was normal. An acquired benign-appearing, intrinsic moderate stenosis was found in the duodenal bulb and was traversed after dilation. A TTS dilator was passed through the scope. Dilation with a 12-13.5-15 mm pyloric balloon dilator was performed. The second portion of the duodenum was normal. Impression: - Z-line regular, 36 cm from the incisors. - A small amount of food (residue) in the stomach. - Normal stomach. - Acquired duodenal stenosis. Dilated. - Normal second portion of the duodenum. - No specimens collected. Recommendation: - [facility] care. Vinayak Dos Santos M.D. Vinayak Dos Santos MD 06/21/2019 3:41:32 PM This report has been signed electronically. Note Initiated On: 06/21/2019 2:48 PM Number of Addenda: 0 I attest to the content of the Intraoperative Record and orders documented therein, exceptions below {[id number]}
[2019-06-21] MEDS ORDERED: CENTRAL PN IV SCH ×2 (16:00)
--- NOTE | 2019-06-21 16:17 | Anesthesiology Progress Note ---
Date of Service June 21, 2019 Anesthesia Post Procedure Vital Signs Vital Signs: Temp Pulse Pulse Resp BP BP Pulse Ox 06/21/19 16:05 101 H 20 101/56 L 96 06/21/19 15:55 110 H 14 105/54 L 98 06/21/19 15:45 37.2 C 110 H 26 H 117/59 L 95 06/21/19 14:48 37.2 C 117 H 20 97/72 L 96 06/21/19 11:17 37.2 C 101 H 22 136/78 97 06/21/19 09:54 102 H 18 142/80 H 06/21/19 07:14 36.9 C 96 H 22 90/61 L 97 06/20/19 23:31 37.1 C 95 H 20 120/74 100 Pain Intensity Back: Pain Intensity: 7 Abdomen: Pain Intensity: 8 Transfer of Care Handoff Completed per policy Notes Mental Status: alert / awake / arousable and participated in evaluation Patient Amnestic to Procedure: Yes Nausea / Vomiting: adequately controlled Pain: adequately controlled Airway Patency, RR, SpO2: stable & adequate BP & HR: stable & adequate Hydration State: stable & adequate Anesthetic Complications: no major complications apparent and Pt Satisfied with anesthetic care
[2019-06-21] MEDS: POTASSIUM CHLORIDE / WTR 10 MEQ/100 ML PLCT IV SCH ×2 (17:18→18:50)
--- NOTE | 2019-06-21 17:18 | Progress Note ---
DATE: 06/21/2019 The patient was brought down to the OR today and intubated to protect her airway and underwent an EGD to reassess the duodenal stenotic area that was partially dilated 3 days ago. There was still some residual solid food in her stomach and some liquid that was suctioned out, but much less than the last week. I was able to advance through the stenotic area in the duodenum and then inflated to 15 cm. Following dilation, I was able to pass the endoscope fairly easily through the stenotic area into the second portion of the duodenum which looked normal. Some of the food in the stomach had already passed through this area. The patient tolerated the procedure well. IMPRESSION: The patient has what appears to be an intrinsic stricture of the duodenum which has been dilated up to 15 mm. This should allow food and fluid to pass through and I think we can try putting her on a full liquid diet to see how she tolerates it.
[2019-06-21] MEDS: ENOXAPARIN INJ 40 MG/0.4 ML SYR SQ SCH (17:19)
[2019-06-21] MEDS: DiphenhydrAMINE HCL 50 MG/ML VIAL IV PRN (19:34)
[2019-06-21] MEDS: PANTOprazole 40 MG in SYRINGE 0 ML IV SCH (21:22)
[2019-06-22] MEDS: ACETAMINOPHEN 1000 MG/100 ML IV IV PRN ×2 (01:10→09:29)
[2019-06-22] MEDS: DiphenhydrAMINE HCL 50 MG/ML VIAL IV PRN ×2 (05:41→19:22)
[2019-06-22] MEDS: HYDROmorphone INJ 1 MG/ML SYRINGE IV PRN ×4 (05:42→23:57)
[2019-06-22] MEDS: LORazepam 1 MG/2 ML VIAL IV SCH ×3 (05:42→21:08)
[2019-06-22 06:24] LABS: Basophils # (auto) 0.05 K/uL (0-0.2); Basophils % (auto) 0.5 %; Eosinophils # (auto) 0.26 K/uL (0-0.5); Eosinophils % (auto) 2.7 %; Hematocrit (blood only) 32.1 % (37-47); Hemoglobin 10.5 g/dL (12.0-16.0); Immature Granulocytes # (auto) 0.02 K/uL (0.00-0.02); Immature Granulocytes % (auto) 0.2 %; Lymphocytes # (auto) 1.18 K/uL (1.2-3.4); Lymphocytes % (auto) 12.3 %; Mean Corpuscular Hgb Conc 32.7 g/dL (32-36); Mean Corpuscular Volume 97.9 fL (80-100); Mean Platelet Volume 10.3 fL (7.4-10.4); Monocytes % (auto) 9.4 %; Neutrophils # (auto) 7.21 K/uL (1.4-6.5); Neutrophils % (auto) 74.9 %; Platelet Count 346 K/uL (130-400); RDW Coefficient of Variation 14.4 % (11.5-14.5); RDW Standard Deviation 51.4 fL (36.4-46.3); Red Blood Count 3.28 M/uL (4.2-5.4); White Blood Count 9.62 K/uL (4.8-10.8)
[2019-06-22 06:43] LABS: Albumin Level 2.6 gm/dl (3.4-5.0); BUN Creatinine Ratio 30.5 (10-20); Calcium 8.3 mg/dl (8.5-10.1); Creatinine Clr Calc Pharmacy 87.6 ml/min; Est GFR (African American) 98.1; Est GFR (Non-African American) 84.7; Potassium 3.9 mmol/L (3.5-5.1)
[2019-06-22 06:46] LABS: Albumin Globulin Ratio 0.9 (0.9-2); Globulin 2.8 gm/dl (2.5-4.0); Total Protein 5.4 gm/dl (6.4-8.2)
[2019-06-22] MEDS: hydrOXYzine HCL IM SOLN 50 MG/ML 1 ML VIAL IM PRN (10:00)
[2019-06-22 14:09] LABS: Hemoglobin 10.8 g/dL (12.0-16.0)
--- NOTE | 2019-06-22 15:32 | Family Medicine Progress Note ---
Date of Service June 22, 2019 Assessment & Plan (1) Duodenal stenosis: 59yo F PMH: , DVT s/p IVC filter placement, fibromyalgia, leukocytosis admitted after abnormal outpatient EGD findings of duodenal stenosis and significant food burden in gastric body despite liquid diet. Duodenal stenosis Repeat EGD was able to further dilate her stricture to 15mm. Hopefully will allow food and fluid to pass through easily. Full liquid diet currently, will be evalauted by GI this afternoon and possibly advanced to low fiber TPN ceased Pathology results back showing inflamed duodenal mucosa with some fungal organisms discussed case with Dr. Dos Santos and he feels this is likely just colonization of the inflamed tissue rather than a systemic infection that would need to be treated -PRN Zofran for nausea History of spinal fusion T5-S1/Chronic Back pain -Chronic pain 2/2 spinal fusion, revised at the [facility]. Patient uncomfortable in hospital bed, but tells me she always has back pain -Continue to monitor -Takes Endocet 7.5, 5 times a day at home. -Analgesia with 1 mg Dilaudid every 6 hours and ofirmev q8h Aortic stenosis Does not follow with cardiology. Monitor for now, recommend outpatient cardiology follow-up Rash/Pruritis Patient tells me she has this reaction to IV contrast dye Rash is red and all over body, slightly more erythematous today, occasionally itchy IV benadryl prn Fibromyalgia -Analgesia as above Anxiety -Scheduled lorazepam 1 mg every 8 hours per patient request Left Arm Swelling Patient developed asymmetric arm swelling on same side as PICC line placement Will get U/S to rule out DVT. FENa: Full liquids may advance to low fiber diet this evening Code Status: Full DVT PPX: IVC filter, Lovenox Dispo: awaiting path, med/surg Supervising Physician Co-Signing Physician Notes Resident Physician Supervision Note: I independently interviewed and examined the patient and verified the wiley history and physical, reviewed labs and image studies, discussed the case with the resident Dr. Browning and agree with the findings and care plan. Subjective Sherlyn doing very well today and in high spirits, she reports that the EGD went very well yesterday and she is eagerly anticipating advancing her diet. She denies any pain beyond back pain (Chronic) at rest and feels that her appetite is present. We discussed her recent biopsy and she is reassured that her pathology report does not show any malignancy. Denies any nausea vomiting abdominal pain at this time, tolerated liquids this morning. Review of Systems Review of Systems: All systems reviewed & are unremarkable except as noted in HPI & below Physical Exam Physical Exam: Constitutional: 59 year old woman appearing stated age in no apparent distress. Eyes: anicteric sclerae, EOMMI Respiratory: Good air entry globally, Lung sounds vesicular, chest expansion symmetric Cardiovascular: Regular rate and rhythm, no m/r/s/g, no lower limb edema GI: abdomen soft, mild epigastric tenderness, no masses palpable, abdomen obese Skin: Red macular rash across all four limbs, not affecting mucus membranes, palms of hands or soles of feet. non tender, occasionally itchy Results & Data Vital Signs (Past 12 Hours) Vital Signs Temp Pulse Pulse Resp BP BP Pulse Ox 06/22/19 15:15 36.4 C 80 18 135/80 98 06/22/19 07:11 36.5 C 83 16 118/73 97 PG Care Time/CCT Total # of Minutes Spent Total Time Spent with Patient: Total time spent is greater than 50% in coordination of care (as documented) at patient's floor/unit and/or counseling patient: Resident Activity Tracking Resident Involvement: Resident Care Provided Care Provided: Adult Hospital Medicine
--- NOTE | 2019-06-22 16:06 | Ultrasound Report ---
LEFT UPPER EXTREMITY VENOUS DOPPLER HISTORY: Unilateral swelling COMPARISON STUDY: None. FINDINGS: The left internal jugular vein is patent. There is normal flow within the left subclavian v ein. There is normal flow and compressibility within the visualized left axillary, basilic, brachial, radial, ulnar, and visualized cephalic veins. Of note, a portion of the left brachial basilic veins were nonvisualized due to the PICC and overlying bandages. A left PICC is identified within the basil ic, axial, and subclavian veins. IMPRESSION: No DVT within the visualized left upper extremity. Electronically signed by: Kehinde Aguilar M.D. 06/22/2019 4:05 PM
--- NOTE | 2019-06-22 16:57 | Progress Note ---
DATE: 06/22/2019 The patient underwent a balloon dilation of a duodenal stricture yesterday and was able to tolerate full liquids last evening and today. Her abdomen is not distended or tender. On physical exam, her vital signs are normal. She is afebrile. Her p.o. intake over the last 24 hours was 2315. The patient is awake, alert, and ambulatory. IMPRESSION AND PLAN: The patient has a benign duodenal stricture. There are some fungal organisms on the biopsies that appear to be a colonization of the inflamed area that was acutely inflamed but with no signs of malignancy. I do not believe that a fungal colonization needs to be treated. I plan on advancing her to a low-fiber diet for the next week and if that is tolerated, she can advance her diet. If she has more problems as she advances her diet, we can re-balloon the stricture to a higher diameter if needed. Hopefully, she will be able to be discharged tomorrow.
[2019-06-22] MEDS: ENOXAPARIN INJ 40 MG/0.4 ML SYR SQ SCH (17:26)
[2019-06-22] MEDS: PANTOprazole 40 MG in SYRINGE 0 ML IV SCH (21:08)
[2019-06-22] MEDS: ONDANSETRON INJ 2 MG/ML 2 ML VIAL IV PRN (23:58)
[2019-06-23] MEDS: ACETAMINOPHEN 1000 MG/100 ML IV IV PRN (04:06)
[2019-06-23] MEDS: LORazepam 1 MG/2 ML VIAL IV SCH (06:07)
[2019-06-23 06:27] LABS: Hematocrit (blood only) 31.4 % (37-47); Hemoglobin 10.1 g/dL (12.0-16.0); Mean Corpuscular Hemoglobin 32.1 pg (25-34); Mean Corpuscular Hgb Conc 32.2 g/dL (32-36); Mean Corpuscular Volume 99.7 fL (80-100); Platelet Count 352 K/uL (130-400); RDW Coefficient of Variation 14.5 % (11.5-14.5); Red Blood Count 3.15 M/uL (4.2-5.4); White Blood Count 9.99 K/uL (4.8-10.8)
[2019-06-23 07:03] LABS: Albumin Level 2.4 gm/dl (3.4-5.0); BUN Creatinine Ratio 20.4 (10-20); Basophils # (auto) 0.18 K/uL (0-0.2); Basophils % (auto) 1.8 %; Calcium 8.2 mg/dl (8.5-10.1); Creatinine Clr Calc Pharmacy 76.5 ml/min; Eosinophils # (auto) 0.68 K/uL (0-0.5); Eosinophils % (auto) 6.8 %; Est GFR (African American) 83.3; Est GFR (Non-African American) 71.9; Immature Granulocytes # (auto) 0.01 K/uL (0.00-0.02); Immature Granulocytes % (auto) 0.1 %; Lymphocytes # (auto) 2.36 K/uL (1.2-3.4); Lymphocytes % (auto) 23.6 %; Monocytes # (auto) 1.58 K/uL (0.11-0.59); Monocytes % (auto) 15.8 %; Neutrophils # (auto) 5.18 K/uL (1.4-6.5); Neutrophils % (auto) 51.9 %; Potassium 3.6 mmol/L (3.5-5.1)
[2019-06-23 07:05] LABS: Globulin 2.5 gm/dl (2.5-4.0); Total Protein 4.9 gm/dl (6.4-8.2)
[2019-06-23] MEDS: HYDROmorphone INJ 1 MG/ML SYRINGE IV PRN (08:30)
--- NOTE | 2019-06-23 23:25 | Discharge Summary ---
Date of Service June 23, 2019 Admission HPI Per Admitting Provider Patient is a 59-year-old female with a complicated past medical history of aortic stenosis, DVT, IVC filter, elevated eosinophils, surgery to the right rotator cuff, spinal fusion from T5-S1, fibromyalgia, prolonged ICU stay in 2008 for sepsis, Leukocytosis of unknown origin has previously been evaluated by Dr. Juarez. Patient presented to the hospital for elective EGD secondary to previously diagnosed duodenal stricture.patient reports her symptoms started approximately on 04 March with severe diarrhea after attending her son's wedding initially she had thought this was secondary to some form of foodborne illness however after 2 weeks of persistent diarrhea she presented the emergency department. In the emergency department they performed an extensive work-up all other being negative she did have diarrhea for 1 to 2 weeks then she started feeling a sensation of blockage in her guts, discontinued for approximately 12 to 14 weeks she is evaluated by numerous physicians were unable to find the cause of her symptoms. Eventually an EGD was performed on 26 May during that procedure it was noted that she had stenosis of the duodenum, and it was unable to be traversed. Given that the procedure was performed in the outpatient setting the physician was unable to perform balloon dilation, he completed this procedure and advised the patient to resume a full liquid diet and to follow-up at his first available elective appointment for EGD. Patient reports that since then she has been in significant abdominal pain, has an extremely difficult sleeping, and has had upset stomach with acid reflux. Currently patient is doing well. In the immediate postoperative period she experienced a couple episodes of vomitus as well as nausea, since then this has resolved. Currently she is endorsing 8 out of 10 pain, and no other acute concerns. Patient reports moving her bowels yesterday, has recently been tolerating her diet, sleeping intermittently, and voiding on her own. All questions answered, patient requesting PRN medication for sleep should she need it this evening. Primary Care Provider: Kevin Veliz, DO Admission Exam Per Admitting Provider General: Middle-aged female lying in bed in no acute distress HEENT: Normocephalic atraumatic Neck: Normal to visual inspection, trachea midline, negative JVD Cardiac: Grade 3 out of 6 systolic ejection murmur heard loudest at the second right intercostal space, regular rate, regular rhythm no gallops appreciated, normal S1, normal S2, negative pedal edema, negative tach calf tenderness Respiratory: Clear to auscultation bilaterally with symmetrical chest rise, did not appreciate significant wheezes, rales, rhonchi GI: Soft, distended abdomen, tender to palpation in all 4 quadrants, this is not a new symptom for the patient MSK: Moves all extremities, spinal flexion limited secondary to spinal fusion Skin: Warm, dry, intact Neuro: Alert and oriented x4 Psych: Calm, cooperative, perseverates on her chronic medical conditions Principal Diagnosis Duodenal Stricture Discharge Exam Constitutional: 59 year old woman appearing stated age in no apparent distress. Eyes: anicteric sclerae, EOMMI Respiratory: Good air entry globally, Lung sounds vesicular, chest expansion symmetric Cardiovascular: Regular rate and rhythm, no m/r/s/g, no lower limb edema GI: abdomen soft, mild epigastric tenderness, no masses palpable, abdomen obese Skin: Red macular rash across all four limbs, not affecting mucus membranes, palms of hands or soles of feet. non tender, occasionally itchy Discharge Data Allergies Allergy/AdvReac Type Severity Reaction Status Date / Time metronidazole [From Flagyl] Allergy Severe Hives Verified 06/17/19 13:27 Gold Salts Allergy Intermediate Hives Verified 06/17/19 13:27 nafcillin Allergy Intermediate Hives Verified 06/17/19 13:27 wheat Allergy Intermediate migraines/joint Verified 06/17/19 13:27 pain medroxyprogesterone Allergy Mild HIVES Verified 06/17/19 13:27 peanut Allergy Unknown Migraine Verified 06/19/19 10:22 shellfish derived Allergy Unknown Migraine Verified 06/19/19 10:22 Penicillins AdvReac Intermediate Hives Verified 06/17/19 13:27 morphine AdvReac Mild nausea Verified 06/17/19 13:27 /vomit Consultations 06/17/19 17:03 Consult Case Management - Discharge Planning Routine Consult Gastroenterology Routine Procedures Performed Operation Date: 06/17/19 14:00 Actual Procedures p EGD Biopsy Dilatation - Vinayak Dos Santos Operation Date: 06/21/19 08:10 Actual Procedures p Esophagogastroduodenoscopy with through the scope dilation.(Not Applicable) - Vinayak Dos Santos Ordered Studies 06/17/19 17:03 CT abd pelvis IV con only Urgent 06/22/19 14:12 US venous doppler UE LT Urgent Hospital Course (1) Duodenal stenosis: 59yo F PMH: , DVT s/p IVC filter placement, fibromyalgia, leukocytosis admitted after abnormal outpatient EGD findings of duodenal stenosis and significant food burden in gastric body despite liquid diet. Duodenal stenosis Patient had initial EGD which partially dilated stricture to 10 mm and took biopsy for pathology of circumferential growth Patient unable to toelrate even liquid feeds, was on continued liquid feeding and TPN for nutrition. Pathology came back benign inflamed mucosal tissue Repeat EGD was able to further dilate her stricture to 15mm. diet was advanced and patient was able to tolerate soft low fiber diet TPN ceased Pathology also showed inflamed duodenal mucosa with some fungal organisms discussed case with Dr. Dos Santos and he feels this is likely just colonization of the inflamed tissue rather than a systemic infection that would need to be treated Follow up with PCP or resident in the next week to make sure she is tolerating feeding. History of spinal fusion T5-S1/Chronic Back pain -Chronic pain 2/2 spinal fusion, revised at the [facility]. -Takes Endocet 7.5, 5 times a day at home. Aortic stenosis Notable systolic murmur Does not follow with cardiology. stable as inpatient, recommend outpatient cardiology follow-up Rash/Pruritis Patient tells me she has this reaction to IV contrast dye Rash is diffuse redness and all over body, occasionally itchy To take prn benadryl and have outpatient f/u. Left Arm Swelling Patient developed asymmetric arm swelling on same side as PICC line placement U/S performed which ruled out DVT. Swelling improved Picc line removed Total Time Total Time Spent Total Time Spent (In Minutes): See attending attestation Discharge Plan Discharge Items Patient Disposition: Home - Self-Care Reason For Visit: DUODENAL STRICTURE Discharge Diagnosis: Duodenal stricture Activity: Resume your previous activity Non-emergency contact: Primary Care Provider and Truck Driver Heavy Call non-emergency contact if: you have any medication questions, your symptoms worsen, your pain is not controlled and your pain is worsening Follow-up/Referrals: Kevin Veliz, [Primary Care Provider] - Diet: Low Fiber Addtl Attending Provider Instructions: Ms. Vital, It was a pleasure meeting you and helping to treat you for your duodenal constriction and obstruction. On EGD we took samples of the obstructin and found no evidence of malignancy. We also were able to dilate your duodenum and you have been able to pass stomach contents appropriately so far. We are happy with your progress and feel at this point you are safe to follow up in the outpatient setting. We will not be making changes to your outpatient medication regimen and we would like you to take advancing your diet slowly, fully chew all of your food and try to stick to a low fiber diet to help slowly re acclimate your bowel. If you have similar symptoms of obstruction please call your GI doctor doctor Levon. If you have any other concerns please contact Dr. Veliz your primary care physician Pending Studies at Discharge: No Stand-Alone Forms: My [facility], Smoking Cessation Medications and DC Order Prescriptions: Continued cyclobenzaprine 10 mg tablet 10 mg PO DAILY PRN (Reason: Muscle Spasm) RF: 0 aspirin 325 mg Tablet 325 mg PO BID PRN (Reason: Pain) RF: 0 acetaminophen [Tylenol Extra Strength] 500 mg Tablet 1,000 mg PO UD PRN (Reason: Pain) RF: 0 triamcinolone acetonide 0.1 % cream 1 applic topical BID PRN (Reason: Rash) RF: 0 calcium carbonate [Calcium 600] 600 mg calcium (1,500 mg) Tablet 600 mg PO QAM RF: 0 ibuprofen 200 mg Tablet 400 - 800 mg PO Q6H PRN (Reason: Pain) RF: 0 lorazepam [Ativan] 1 mg Tablet 1 mg PO TID RF: 0 oxycodone-acetaminophen [Endocet] 7.5-325 mg tablet 1 tab PO 5XD RF: 0 albuterol sulfate [ProAir HFA] 90 mcg/actuation HFA aerosol inhaler 2 puff inhalation Q6H PRN (Reason: SOB/Wheezing) RF: 0 dsxzczzexj-ravdfcxdbjxiy-oacb 50-300-40 mg capsule 1 cap PO DAILY PRN (Reason: Migraines) RF: 0 ondansetron HCl [Zofran] 4 mg Tablet 4 mg PO BID PRN (Reason: Nausea) RF: 0 Discharge Orders: Discharge Order (Routine); Ordered 06/23/19 Ordered By: Geo Grimaldo/Other Patient Handouts: Diet Soft Dc Admission Data Admit Date/Time: 06/17/19 16:06 Attending Provider: Maura Saravia Admit Provider: Dewayne Montes Primary Care Provider: Kevin Veliz Other Providers: Dewayne Montes ; Vinayak Dos Santos Other Interventions: Discharge Summary Assessment (RN) Last Done: 06/23/19 10:16 DC Date/Time DO NOT enter until pt leaves facility: 06/23/19 11:55 Supervising Physician Co-Signing Physician Notes Resident Physician Supervision Note: I independently interviewed and examined the patient and verified the wiley history and physical, reviewed labs and image studies, discussed the case with the resident Dr. Browning and agree with the findings and care plan. Time spent in discharge 35 min Resident Activity Tracking Resident Involvement: Resident Care Provided Care Provided: Adult Hospital Medicine
== END 2019-06-23 11:55 | disposition home or self-care (01) | DRG 382 ==
LOC: ENDO 12:57 → 2W 16:06 → SUATTDRO 16:06

== ENCOUNTER 2019-10-19 17:04 | Inpatient (IN) ==
[2019-10-19] MEDS ORDERED: KETOROLAC TROMETHAMINE 15 MG/ML VIAL IV ONE (17:28)
[2019-10-19] MEDS ORDERED: ALBUTEROL 0.083% NEBU SOLN 3 ML VIAL NEB STA (17:28)
[2019-10-19 17:56] LABS: Basophils # (auto) 0.14 K/uL (0-0.2); Eosinophils # (auto) 0.51 K/uL (0-0.5); Eosinophils % (auto) 7.1 %; Hematocrit (blood only) 30.7 % (37-47); Hemoglobin 9.4 g/dL (12.0-16.0); Immature Granulocytes # (auto) 0.01 K/uL (0.00-0.02); Immature Granulocytes % (auto) 0.1 %; Lymphocytes # (auto) 2.06 K/uL (1.2-3.4); Lymphocytes % (auto) 28.8 %; Mean Corpuscular Hemoglobin 28.8 pg (25-34); Mean Corpuscular Hgb Conc 30.6 g/dL (32-36); Mean Corpuscular Volume 94.2 fL (80-100); Mean Platelet Volume 10.2 fL (7.4-10.4); Monocytes # (auto) 0.98 K/uL (0.11-0.59); Monocytes % (auto) 13.7 %; Neutrophils # (auto) 3.45 K/uL (1.4-6.5); Neutrophils % (auto) 48.3 %; Platelet Count 295 K/uL (130-400); RDW Standard Deviation 48.7 fL (36.4-46.3); Red Blood Count 3.26 M/uL (4.2-5.4); White Blood Count 7.15 K/uL (4.8-10.8)
[2019-10-19 18:13] LABS: Alanine Aminotransferase 22 U/L (12-78); Aspartate Aminotransferase 19 U/L (15-37); BUN Creatinine Ratio 15.8 (10-20); Blood Urea Nitrogen 20 mg/dl (7-18); Carbon Dioxide 24 mmol/L (21-32); Chloride 111 mmol/L (98-107); Est GFR (African American) 51.8; Est GFR (Non-African American) 44.7; Glucose 88 mg/dl (70-99); Potassium 4.2 mmol/L (3.5-5.1); Sodium 140 mmol/L (136-145)
[2019-10-19 18:15] LABS: Albumin Globulin Ratio 0.7 (0.9-2); Alkaline Phosphatase 48 U/L (45-117); Bilirubin,Total 0.6 mg/dl (0.2-1); Globulin 4.1 gm/dl (2.5-4.0); Total Protein 7.1 gm/dl (6.4-8.2)
[2019-10-19 18:29] LABS: Partial Thromboplastin Ratio 0.9; Partial Thromboplastin Time 24.2 Seconds (21.0-31.0); Prothrombin Time 10.2 Seconds (9.0-12.0)
[2019-10-19 18:32] LABS: D Dimer 2030 ug/L FEU (0-500)
[2019-10-19 18:33] LABS: Influenza A virus by PCR Neg for Influ A (Neg); Influenza B virus by PCR Neg for Influ B (Neg)
--- NOTE | 2019-10-19 18:49 | XRay Report ---
TWO VIEW CHEST CLINICAL HISTORY: Dyspnea. FINDINGS: PA and lateral chest radiographs are compared to study dated 06/17/2019 and correlated with chest CT dated 03/02/2016. The heart is enlarged end there is evidence of previous cardiac valve surge ry. There is prominence of the pulmonary vasculature. There is bibasilar scarring/atelectasis. No air space consolidation or pleural effusion is identified. There is no pneumothorax. The skeletal structu res are osteopenic. There are numerous healed bilateral rib fractures. Extensive postoperative change and spinal rods are noted in the thoracolumbar spine. There is subluxation of the left humeral head at the glenohumeral joint. An IVC filter is noted in the upper abdomen. IMPRESSION: 1. Cardiomegaly with prominence of the pulmonary vasculature. Correlate clinically for evidence of mi ld congestive failure. 2. No airspace consolidation or pleural effusion is identified. 3. There is inferior subluxation of the left humeral head at the glenohumeral articulation. ACT 112: Negative or not required by law. Electronically signed by: Benson Arambula M.D. 10/19/2019 6:48 PM
[2019-10-19] MEDS ORDERED: ASPIRIN CHEW 324 MG PO STA (19:37)
--- NOTE | 2019-10-19 21:07 | Emergency Department Note ---
Entered by Henna Lerner acting as a scribe for René Rao DO History of Present Illness General Chief complaint: Respiratory Problems Stated complaint: LUNG INFLAMATION Source: patient History of Present Illness Provider complaint: shortness of breath Onset (ago): week(s) (2.5) Location: chest Pain Consistency: + other (persistent) Relieved By: + none Associated symptoms: + chest pain The patient is a 59 year old female who presents to the Emergency Room with complaints of persistent chest pain which started 2.5 weeks ago. She notes that the symptoms started prior to her TAVR. She mentions that she had a valve replacement last week. She notes that she has been placed on Plavix. She did receive a stent but notes that her cath was completely normal. she reports that she has a history of pneumonia and pleurisy and states that these symptoms feels similar. She notes that if she was not breathing she would have no chest pain and is mainly on the right side of her chest. Pain is worse with laying flat but does improve with sitting up as well. Upon review of her chart she had a TAVR with a stent in the distal left main. She also had 40 to 50% stenosis of the LAD. Obtained from [place] resident. Home Medications Home Medications Medication Instructions Recorded Confirmed Type acetaminophen [Tylenol Extra 500 mg PO QID PRN 03/23/19 10/19/19 History Strength] albuterol sulfate [ProAir HFA] 2 puff INHALATION Q6H PRN 03/23/19 10/19/19 History tzufpcsumg-nixyxfkfqpjla-hcin 1 cap PO DAILY PRN 03/23/19 10/19/19 History calcium carbonate [Calcium 600] 600 mg PO QAM 03/23/19 10/19/19 History cyclobenzaprine 10 mg PO BID PRN 03/23/19 10/19/19 History ibuprofen 400 - 800 mg PO Q6H PRN 03/23/19 10/19/19 History lorazepam [Ativan] 1 mg PO TID 03/23/19 10/19/19 History oxycodone-acetaminophen [Endocet] 1 tab PO 5XD 03/23/19 10/19/19 History triamcinolone acetonide 1 applic TOPICAL BID PRN 03/23/19 10/19/19 History ondansetron HCl [Zofran] 4 mg PO BID PRN 10/18/19 02/19/20 History dicyclomine 10 mg PO QID PRN 08/05/19 10/19/19 History aspirin [Aspirin Low Dose] 81 mg PO QAM 10/19/19 10/19/19 History clopidogrel 75 mg PO UD 10/19/19 10/19/19 History Allergies Allergy/AdvReac Type Severity Reaction Status Date / Time metronidazole [From Flagyl] Allergy Severe Hives Verified 09/02/19 09:40 Gold Salts Allergy Intermediate Hives Verified 09/02/19 09:40 nafcillin Allergy Intermediate Hives Verified 09/02/19 09:40 wheat Allergy Intermediate migraines/joint Verified 09/02/19 09:40 pain medroxyprogesterone Allergy Mild HIVES Verified 09/02/19 09:40 peanut Allergy Mild Migraine Verified 09/02/19 09:40 shellfish derived Allergy Mild Migraine Verified 09/02/19 09:40 Penicillins AdvReac Intermediate Hives Verified 09/02/19 09:40 morphine AdvReac Mild nausea Verified 09/02/19 09:40 /vomit CONTRAST MEDIA AdvReac EDEMA, Uncoded 10/19/19 19:49 SKIN PEELING, HAIR LOSS Past Med/Surg History Medical History Anemia Anxiety Aortic stenosis DX 2017-TO HAVE CARDIAC CATH 09/05/[address] TORRES TO EVALUATE-SHOWING SYMPTOMS OF SOB, FATIGUE, "HEAVY CHEST" PER PT Asthma allergy induced---inhaler prn Chronic back pain Degenerative disc disease Fibromyalgia Gastroparesis When having EGD in endoscopy unit, patients stomach is full of solid foods. patient states she vomitted in prodecure room. When done in Main OR, she was intubated so she would not aspirate History of duodenal ulcer History of DVT (deep vein thrombosis) 2009--left leg got during sepsis History of esophageal dilatation Hypertension (Chronic) IBS (irritable bowel syndrome) Migraine Nausea and vomiting after administration of anesthetic agent Osteoarthritis Spinal stenosis Surgical History Arnold filter in place 2009 d/t blood clot in left leg History of bilateral tubal ligation History of colonoscopy History of esophagogastroduodenoscopy (EGD) History of laparoscopy x3--for endometriosis History of repair of right rotator cuff History of right oophorectomy History of spinal fusion x3---[id number]-[id number] History of tooth extraction Family History Mother Family history of diabetes mellitus Sister Family history of diabetes mellitus Grandmother (Paternal) Family hx of colon cancer Father Family hx colonic polyps Other No family history of adverse response to anesthesia No significant family history Social History Preferred Language: Micronesian Communication Ability: 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 and A total of 10 systems reviewed and were otherwise negative Physical Exam Vital Signs Vital Signs - 24 hr 10/19/19 17:14 10/19/19 17:54 10/19/19 17:59 Temperature 36.6 C Temperature Source Oral Pulse Rate 88 Pulse Rate [Right Finger] 83 Pulse Rate from SpO2 Sensor Respiratory Rate 20 16 Respiratory Effort / Characteristics Non-Labored Non-Labored Non-Labored Spontaneous Respiratory Depth Normal Blood Pressure 107/70 Blood Pressure Mean 82 Pulse Oximetry 98 Oxygen Delivery Method Room Air Room Air Room Air Sepsis Recent Fever Within 48 Hours No Sepsis New/Unexplained Change in Mental Status No Sepsis Action Taken by Nursing No Action Required 10/19/19 18:14 10/19/19 18:36 10/19/19 18:46 Temperature Temperature Source Pulse Rate 80 86 87 Pulse Rate [Right Finger] Pulse Rate from SpO2 Sensor 80 86 87 Respiratory Rate 13 21 19 Respiratory Effort / Characteristics Respiratory Depth Blood Pressure 114/86 Blood Pressure Mean 99 Pulse Oximetry 99 100 97 Oxygen Delivery Method Sepsis Recent Fever Within 48 Hours Sepsis New/Unexplained Change in Mental Status Sepsis Action Taken by Nursing 10/19/19 18:47 10/19/19 19:00 10/19/19 19:01 Temperature Temperature Source Pulse Rate 80 86 83 Pulse Rate [Right Finger] Pulse Rate from SpO2 Sensor 83 87 83 Respiratory Rate 23 20 20 Respiratory Effort / Characteristics Respiratory Depth Blood Pressure 110/79 Blood Pressure Mean 92 Pulse Oximetry 97 97 99 Oxygen Delivery Method Sepsis Recent Fever Within 48 Hours Sepsis New/Unexplained Change in Mental Status Sepsis Action Taken by Nursing 10/19/19 19:30 10/19/19 19:31 10/19/19 19:45 Temperature Temperature Source Pulse Rate 91 H 96 H Pulse Rate [Right Finger] Pulse Rate from SpO2 Sensor 91 H 96 H Respiratory Rate 14 23 Respiratory Effort / Characteristics Respiratory Depth Blood Pressure 128/86 Blood Pressure Mean 101 Pulse Oximetry 98 99 99 Oxygen Delivery Method Room Air Sepsis Recent Fever Within 48 Hours Sepsis New/Unexplained Change in Mental Status Sepsis Action Taken by Nursing 10/19/19 20:00 10/19/19 20:01 10/19/19 20:30 Temperature Temperature Source Pulse Rate 85 91 H 89 Pulse Rate [Right Finger] Pulse Rate from SpO2 Sensor 86 90 89 Respiratory Rate 26 H 18 17 Respiratory Effort / Characteristics Respiratory Depth Blood Pressure 112/78 148/89 H Blood Pressure Mean 91 105 Pulse Oximetry 100 98 100 Oxygen Delivery Method Sepsis Recent Fever Within 48 Hours Sepsis New/Unexplained Change in Mental Status Sepsis Action Taken by Nursing 10/19/19 20:31 Temperature Temperature Source Pulse Rate 97 H Pulse Rate [Right Finger] Pulse Rate from SpO2 Sensor 96 H Respiratory Rate 17 Respiratory Effort / Characteristics Respiratory Depth Blood Pressure Blood Pressure Mean Pulse Oximetry 95 Oxygen Delivery Method Sepsis Recent Fever Within 48 Hours Sepsis New/Unexplained Change in Mental Status Sepsis Action Taken by Nursing GENERAL: alert, sitting up in bed, disheveled, NAD, non-toxic EYE EXAM: normal conjunctiva, PERRL and EOM's grossly intact OROPHARYNX: no exudate, no erythema, lips, buccal mucosa, and tongue normal and mucous membranes are moist NECK: supple, no nuchal rigidity, no adenopathy, non-tender LUNGS: Clear to auscultation. Normal chest wall mechanics HEART: no murmurs, S1 normal and S2 normal CHEST: Reproducible anterior chest wall pain which is worse on the right vs the left. ABDOMEN: abdomen soft, non-tender, normo-active bowel sounds, no masses, no rebound or guarding. GROIN: Bruising in the left groin. Puncture hole in the left and right groin. No active bleeding or oozing. BACK: Back is symmetrical on inspection and there is no deformity, no midline tenderness, no CVA tenderness. SKIN: no rashes and no bruising UPPER EXTREMITIES: upper extremities are grossly normal. LOWER EXTREMITIES: No pitting edema. Calved equal bilateral. NEURO EXAM: Normal sensorium, cranial nerves II-XII grossly intact, normal speech, no gross weakness of arms, no gross weakness of legs. Course Course ED COURSE: Vital signs were reviewed and showed normotensive. The patients medical record was reviewed The above diagnostic studies were performed and reviewed. ED treatments and interventions as stated above. 1721: The patient was evaluated in room B9. A complete history and physical examination was performed. 1854: I reevaluated the patient and she is feeling better. She reports that she cannot get contrast. 6: I discussed the patient's case with Dr. Wolfe- Cardiovascular Surgery. 1926: I reevaluated the patient and updated her on her results. 1928: I reviewed the patient's case with Dr. Mojica. She will evaluate the patient for further management. 1950: Upon reevaluation, the patient is resting comfortably. I discussed my findings with the patient and she understands and agrees with the treatment plan. Based on the patients age, coexisting illnesses, exam and lab findings the decision to treat as an inpatient was made. The patient remained stable while under my care. The patient will be evaluated for further management. Administered Medications Discontinued Medications Albuterol (Ventolin 0.083% 2.5mg/3ml) 2.5 mg NEB NOW STA Stop: 10/19/19 17:29 Last Admin: 10/19/19 17:58 Dose: 2.5 mg Documented by: [id number] Aspirin (Aspirin) 324 mg PO NOW STA Stop: 10/19/19 19:38 Last Admin: 10/19/19 19:45 Dose: 324 mg Documented by: [id number] Ketorolac Tromethamine (Toradol) 15 mg IV NOW ONE Stop: 10/19/19 17:29 Last Admin: 10/19/19 18:02 Dose: 15 mg Documented by: [id number] Critical Care Time Critical Care Time: Yes Total Critical Care Time: 80 I have personally spent 80 minutes of critical care time in the direct management of this patient. This includes bedside care, interpretation of diagnostic studies, and testing, discussion with consultants, patient, and family members, and other required patient management activities. This 80 minutes is in excess of all separately billable procedures. Medical Decision Making Differential Diagnosis Differential diagnoses includes but is not limited to acute coronary syndrome, myocardial infarction, pericarditis, pulmonary embolus, aortic dissection, pneumonia, pneumothorax, musculoskeletal, shingles, esophageal. Medical Records Attestation: I reviewed the patient's medical records. Home Medications Current Medication List: was personally reviewed by me Laboratory Data Attestation: I reviewed the patient's lab results. Result diagrams: 10/19/19 17:44 10/19/19 17:44 Lab Results 10/19/19 10/19/19 10/19/19 Range/Units 17:44 17:44 17:44 WBC 7.15 (4.8-10.8) K/uL RBC 3.26 L (4.2-5.4) M/uL Hgb 9.4 L (12.0-16.0) g/dL Hct 30.7 L (37-47) % MCV 94.2 (80-100) fL MCH 28.8 (25-34) pg MCHC 30.6 L (32-36) g/dL RDW Std Deviation 48.7 H (36.4-46.3) fL RDW Coeff of [place] 14.0 (11.5-14.5) % Plt Count 295 (130-400) K/uL MPV 10.2 (7.4-10.4) fL Immature Gran % (Auto) 0.1 % Neut % (Auto) 48.3 % Lymph % (Auto) 28.8 % Baca % (Auto) 13.7 % Eos % (Auto) 7.1 % Baso % (Auto) 2.0 % Immature Gran # (Auto) 0.01 (0.00-0.02) K/uL Neut # (Auto) 3.45 (1.4-6.5) K/uL Lymph # (Auto) 2.06 (1.2-3.4) K/uL [place] # (Auto) 0.98 H (0.11-0.59) K/uL Eos # (Auto) 0.51 H (0-0.5) K/uL Baso # (Auto) 0.14 (0-0.2) K/uL PT 10.2 (9.0-12.0) Seconds INR 1.0 (0.9-1.1) APTT 24.2 (21.0-31.0) Seconds PTT Ratio 0.9 D-Dimer 2030 H* (0-500) ug/L FEU Sodium 140 (136-145) mmol/L Potassium 4.2 (3.5-5.1) mmol/L Chloride 111 H (98-107) mmol/L Carbon Dioxide 24 (21-32) mmol/L Anion Gap 5.0 (3-11) BUN 20 H (7-18) mg/dl Creatinine 1.29 H (0.6-1.2) mg/dl Est Cr Clr Drug Dosing Not Reportable Est GFR ( Amer) 51.8 Est GFR (Non-Af Amer) 44.7 BUN/Creatinine Ratio 15.8 (10-20) Glucose 88 (70-99) mg/dl Calcium 9.0 (8.5-10.1) mg/dl Total Bilirubin 0.6 (0.2-1) mg/dl AST 19 (15-37) U/L ALT 22 (12-78) U/L Alkaline Phosphatase 48 (45-117) U/L Troponin I (0-0.045) ng/ml Total Protein 7.1 (6.4-8.2) gm/dl Albumin 3.0 L (3.4-5.0) gm/dl Globulin 4.1 H (2.5-4.0) gm/dl Albumin/Globulin Ratio 0.7 L (0.9-2) Influenza Type A (PCR) (Neg) Influenza Type B (PCR) (Neg) 10/19/19 10/19/19 Range/Units 17:44 17:45 WBC (4.8-10.8) K/uL RBC (4.2-5.4) M/uL Hgb (12.0-16.0) g/dL Hct (37-47) % MCV (80-100) fL MCH (25-34) pg MCHC (32-36) g/dL RDW Std Deviation (36.4-46.3) fL RDW Coeff of [place] (11.5-14.5) % Plt Count (130-400) K/uL MPV (7.4-10.4) fL Immature Gran % (Auto) % Neut % (Auto) % Lymph % (Auto) % [place] % (Auto) % Eos % (Auto) % Baso % (Auto) % Immature Gran # (Auto) (0.00-0.02) K/uL Neut # (Auto) (1.4-6.5) K/uL Lymph # (Auto) (1.2-3.4) K/uL [place] # (Auto) (0.11-0.59) K/uL Eos # (Auto) (0-0.5) K/uL Baso # (Auto) (0-0.2) K/uL PT (9.0-12.0) Seconds INR (0.9-1.1) APTT (21.0-31.0) Seconds PTT Ratio D-Dimer (0-500) ug/L FEU Sodium (136-145) mmol/L Potassium (3.5-5.1) mmol/L Chloride (98-107) mmol/L Carbon Dioxide (21-32) mmol/L Anion Gap (3-11) BUN (7-18) mg/dl Creatinine (0.6-1.2) mg/dl Est Cr Clr Drug Dosing Est GFR ( Amer) Est GFR (Non-Af Amer) BUN/Creatinine Ratio (10-20) Glucose (70-99) mg/dl Calcium (8.5-10.1) mg/dl Total Bilirubin (0.2-1) mg/dl AST (15-37) U/L ALT (12-78) U/L Alkaline Phosphatase (45-117) U/L Troponin I 6.470 H* (0-0.045) ng/ml Total Protein (6.4-8.2) gm/dl Albumin (3.4-5.0) gm/dl Globulin (2.5-4.0) gm/dl Albumin/Globulin Ratio (0.9-2) Influenza Type A (PCR) Neg for Influ A (Neg) Influenza Type B (PCR) Neg for Influ B (Neg) Imaging Data Radiologist's Impression: Radiology results as stated below per my review and the radiologist's interpretation: TWO VIEW CHEST CLINICAL HISTORY: Dyspnea. FINDINGS: PA and lateral chest radiographs are compared to study dated 06/17/2019 and correlated with chest CT dated 03/02/2016. The heart is enlarged end there is evidence of previous cardiac valve surgery. There is prominence of the pulmonary vasculature. There is bibasilar scarring/atelectasis. No airspace consolidation or pleural effusion is identified. There is no pneumothorax. The skeletal structures are osteopenic. There are numerous healed bilateral rib fractures. Extensive postoperative change and spinal rods are noted in the thoracolumbar spine. There is subluxation of the left humeral head at the glenohumeral joint. An IVC filter is noted in the upper abdomen. IMPRESSION: 1. Cardiomegaly with prominence of the pulmonary vasculature. Correlate clinically for evidence of mild congestive failure. 2. No airspace consolidation or pleural effusion is identified. 3. There is inferior subluxation of the left humeral head at the glenohumeral articulation. ACT 112: Negative or not required by law. Electronically signed by: Benson Arambula M.D. 10/19/2019 6:48 PM ECG Data Attestation: I personally reviewed and interpreted this ECG as follows: Indication: + chest pain Rate (beats per minute): 88 Rhythm: + sinus rhythm ECG Intervals/blocks: + Left bundle branch block ECG ST segments: + ST depression (inferior and lateral) and + T-wave inversions (inferior and lateral) Comparison ECG Date: from (03/02/16) Change: the following changes noted (TWI and ST depression in lateral leads is new, left bundle branch block is new, TWI and ST depression in inferior leads is worse) Blood Pressure Blood Pressure Findings: Low blood pressure Blood Pressure Disposition: did not require urgent referral MDM Narrative Patient is a 59-year-old female status post TAVR [address] [facility] where she also had a stent placed in her distal left main b/c they had trouble deploying the TAVR. She notes that she has been having chest pain for the past 2-1/2 weeks which is solely pleuritic in nature. If she was not moving her chest wall she would have any pain. It is mainly on the right side of her chest. This is the same pain that was present prior to the procedure but worsened about 4 days ago. IV was established blood work was obtained. She was slightly hypertensive in the 140s. She was afebrile. Pain is worsening with breathing, and laying flat. Improves with sitting up. IV was established blood work was obtained and showed a hemoglobin of 9.4. No significant leukocytosis. INR was unremarkable. D-dimer was elevated. Unable to perform CT angios due to contrast allergy per patient. Patient does have an IVC filter. BMP with LFTs bilirubin was unremarkable. Troponin was significantly elevated at 6.4. EKG had a left bundle with some ST wave changes. No recent EKGs to compare to celine valdez. Discussed with patient and family. Patient would prefer to stay here. I discussed with cardiothoracic surgeon who recommends an echo and does agree that the patient can likely stay here; does agree that the troponin is higher than what he would expect. Discussed with the hospitalist and the [place] resident who was able to pull up previous records as well as an EKG. This left bundle is new since the procedure. Discussed with cardiology Dr. Montenegro. After 2 separate discussions currently are comfortable with keeping the patient at [facility]. Discussed performing stat echo but as vitals are stable patient does not meet criteria for echo at this time of night. In light of a new left bundle and elevated troponin did consider ACS, although I favor this is less likely in light of her symptoms/complaints. Chest pain for 2.5 weeks only present with breathing/solely pleuritic; not consistent with ACS or stent occlusion. Also recent cath which showed only 40 to 50% stenosis in the LAD prior to TAVR. Pain also worsened with lying flat and improved with sitting up. Based on this, in discussion with cardiology concerned for possible pericardial effusion and consequently held on heparin bolus and drip after discussion with cardiology as this could make effusion worse as this would fit most consistent with the symptoms of pleuritic chest pain worse with laying flat improved with sitting up and with Toradol given in the ER. Patient was given aspirin. Patient was also given colchicine after discussion with cardiology as well. Troponin will need to be trended. Discussed with the hospitalist and they recommended a CT of the chest which I did place the order for. This was done without contrast due to the allergy. Patient was updated on multiple occasions. I did rediscuss transferring her down to [place] and she was tearful and would prefer to stay here. Impression & Plan Chest pain, Elevated troponin, D-dimer, elevated, H/O aortic valve replacement, New onset left bundle branch block (LBBB), Pericarditis, S/P TAVR (transcatheter aortic valve replacement) Discharge Plan Visit Data Chief Complaint: Respiratory Problems Stated Complaint: LUNG INFLAMATION ED Provider: René Rao Discharge Problem: Chest pain, Elevated troponin, D-dimer, elevated, H/O aortic valve replacement, New onset left bundle branch block (LBBB), Pericarditis, S/P TAVR (transcatheter aortic valve replacement) Patient Disposition: Being Evaluated by Hospitalist Forms Stand Alone Forms: My [facility] Prescriptions Prescriptions: No Action clopidogrel 75 mg tablet 75 mg PO UD RF: 0 aspirin [Aspirin Low Dose] 81 mg Tablet,Delayed Release (Dr/Ec) 81 mg PO QAM RF: 0 cyclobenzaprine 10 mg tablet 10 mg PO BID PRN (Reason: Muscle Spasm) RF: 0 acetaminophen [Tylenol Extra Strength] 500 mg Tablet 500 mg PO QID PRN (Reason: Pain) RF: 0 triamcinolone acetonide 0.1 % cream 1 applic topical BID PRN (Reason: Rash) RF: 0 calcium carbonate [Calcium 600] 600 mg calcium (1,500 mg) Tablet 600 mg PO QAM RF: 0 ibuprofen 200 mg Tablet 400 - 800 mg PO Q6H PRN (Reason: Pain) RF: 0 lorazepam [Ativan] 1 mg Tablet 1 mg PO TID RF: 0 oxycodone-acetaminophen [Endocet] 7.5-325 mg tablet 1 tab PO 5XD RF: 0 albuterol sulfate [ProAir HFA] 90 mcg/actuation HFA aerosol inhaler 2 puff inhalation Q6H PRN (Reason: SOB/Wheezing) RF: 0 lbutbysucu-zzkadrstvmayw-crzx 50-300-40 mg capsule 1 cap PO DAILY PRN (Reason: Migraines) RF: 0 ondansetron HCl [Zofran] 4 mg Tablet 4 mg PO BID PRN (Reason: Nausea) RF: 0 dicyclomine 10 mg Capsule 10 mg PO QID PRN (Reason: Abdominal Discomfort) RF: 0 Referrals Referrals: Kevin Veliz DO [Primary Care Provider] - Discharge Problem: Chest pain Qualifiers: Chest pain type: unspecified Qualified Code(s): R07.9 - Chest pain, unspecified Pericarditis Qualifiers: Pericarditis type: unspecified type Chronicity: acute Qualified Code(s): I30.9 - Acute pericarditis, unspecified The scribe's documentation has been prepared under my direction and personally reviewed by me in its entirety. I confirm that the note above accurately reflects all work, treatment, procedures, and medical decision making performed by me.
[2019-10-19] MEDS ORDERED: COLCHICINE 0.6 MG TAB PO ONE (21:11)
[2019-10-19] MEDS ORDERED: LORazepam 1 MG TAB PO STA (21:33)
[2019-10-19] MEDS ORDERED: OXYCODONE HCL IR 5 MG TAB (IMMEDIATE RELEASE) PO STA (21:33)
--- NOTE | 2019-10-19 21:36 | History & Physical Report ---
Date of Service October 19, 2019 Assessment & Plan (1) S/P TAVR (transcatheter aortic valve replacement): Status post TAVR 7 days ago/status post stented coronary artery- CT of chest with pericardial thickening New left bundle branch block Elevated troponin of 6.47- The patient has persisted right upper chest and shoulder discomfort. There are multiple concerning contributing factors: Pericarditis, new left bundle branch block, multiple closed rib fractures of both sides, fibromyalgia, with elevated troponin. Present on Admission?: Yes (2) Pericarditis: May be secondary to recent surgery TAVR. Start colchicine 0.6 mg p.o. twice daily. Increase aspirin from 81 mg daily to twice daily. Consult cardiology. Present on Admission?: Yes (3) New onset left bundle branch block (LBBB): EKG in the ED today, demonstrates new left bundle branch block compared to EKG from [facility] 6 days ago that was postoperative. The patient will be admitted to telemetry for serial cardiac enzymes, serial EKG's, cardiac rhythm monitoring and a 2-D echocardiogram with Dopplers. ED discussed with Dr. Montenegro, with plans to perform echocardiogram tomorrow. Present on Admission?: Yes (4) Elevated troponin: See above Present on Admission?: Yes (5) Fibromyalgia: Continue usual supportive medications Present on Admission?: Yes (6) Multiple closed fractures of ribs of both sides with routine healing: Noted on CT, may likely be contributing to some of her pain as well, including that of fibromyalgia Present on Admission?: Yes (7) Anxiety: Continue Lorazepam 1 mg p.o. 3 times daily Present on Admission?: Yes (8) Anemia: Hemoglobin 9.4 upon admission, with most recent being 10.1 on 06/23/2019. Follow serially Present on Admission?: Yes (9) Asthma: Continue usual inhalers. Present on Admission?: Yes History of Present Illness Chief Complaint: The patient presents to the emergency department with right upper chest and shoulder discomfort which began about 2 and half weeks ago, and is unchanged after she had a TAVR and stent placement at [facility] 1 week ago. Primary Care Provider: Kevin Veliz, DO The patient is a 59-year-old female with a past medical history including fibromyalgia, thoracic spine surgery with sebastien placement, rotator cuff repair, spinal fusion, duodenal stenosis, TAVR, obesity, COPD, migraine and anxiety. She presents to the emergency department with persistent chest discomfort over t he past 2-1/2 weeks as noted, without change even after stent placement and TAVR at [facility] 1 week ago. The pain does worsen with a deep breath, is worse with lying flat, and does improve with sitting up. She does take Endocet 7.5/2.5 5 times daily, but only marginally helps the pain. Allergies Allergy/AdvReac Type Severity Reaction Status Date / Time metronidazole [From Flagyl] Allergy Severe Hives Verified 09/02/19 09:40 Gold Salts Allergy Intermediate Hives Verified 09/02/19 09:40 nafcillin Allergy Intermediate Hives Verified 09/02/19 09:40 wheat Allergy Intermediate migraines/joint Verified 09/02/19 09:40 pain medroxyprogesterone Allergy Mild HIVES Verified 09/02/19 09:40 peanut Allergy Mild Migraine Verified 09/02/19 09:40 shellfish derived Allergy Mild Migraine Verified 09/02/19 09:40 Penicillins AdvReac Intermediate Hives Verified 09/02/19 09:40 morphine AdvReac Mild nausea Verified 09/02/19 09:40 /vomit CONTRAST MEDIA AdvReac EDEMA, Uncoded 10/19/19 19:49 SKIN PEELING, HAIR LOSS Home Medications Home Medications Medication Instructions Recorded Confirmed Type acetaminophen [Tylenol Extra 500 mg PO QID PRN 03/23/19 10/19/19 History Strength] albuterol sulfate [ProAir HFA] 2 puff INHALATION Q6H PRN 03/23/19 10/19/19 History nyexzqzmoc-xmjvmposngqrk-ogyl 1 cap PO DAILY PRN 03/23/19 10/19/19 History calcium carbonate [Calcium 600] 600 mg PO QAM 03/23/19 10/19/19 History cyclobenzaprine 10 mg PO BID PRN 03/23/19 10/19/19 History ibuprofen 400 - 800 mg PO Q6H PRN 03/23/19 10/19/19 History lorazepam [Ativan] 1 mg PO TID 03/23/19 10/19/19 History oxycodone-acetaminophen [Endocet] 1 tab PO 5XD 03/23/19 10/19/19 History triamcinolone acetonide 1 applic TOPICAL BID PRN 03/23/19 10/19/19 History ondansetron HCl [Zofran] 4 mg PO BID PRN 06/17/19 10/19/19 History dicyclomine 10 mg PO QID PRN 08/05/19 10/19/19 History aspirin [Aspirin Low Dose] 81 mg PO QAM 10/19/19 10/19/19 History clopidogrel 75 mg PO UD 10/19/19 10/19/19 History Past Med/Surg History Medical History Anemia Anxiety Aortic stenosis DX 2017-TO HAVE CARDIAC CATH 09/05/[address] TORRES TO EVALUATE-SHOWING SYMPTOMS OF SOB, FATIGUE, "HEAVY CHEST" PER PT Asthma allergy induced---inhaler prn Chronic back pain Degenerative disc disease Fibromyalgia Gastroparesis When having EGD in endoscopy unit, patients stomach is full of solid foods. patient states she vomitted in prodecure room. When done in Main OR, she was intubated so she would not aspirate History of duodenal ulcer History of DVT (deep vein thrombosis) 2009--left leg got during sepsis History of esophageal dilatation Hypertension (Chronic) IBS (irritable bowel syndrome) Migraine Nausea and vomiting after administration of anesthetic agent Osteoarthritis Spinal stenosis Surgical History [place] filter in place 2009 d/t blood clot in left leg History of bilateral tubal ligation History of colonoscopy History of esophagogastroduodenoscopy (EGD) History of laparoscopy x3--for endometriosis History of repair of right rotator cuff History of right oophorectomy History of spinal fusion x3---t5-s1 History of tooth extraction Family History Mother Family history of diabetes mellitus Sister Family history of diabetes mellitus Grandmother (Paternal) Family hx of colon cancer Father Family hx colonic polyps Other No family history of adverse response to anesthesia No significant family history Social History Preferred Language: French Communication Ability: Effective Shipping Helper Required: No Beliefs That Will Affect Care: None marital status: Current Living Situation: Spouse Feels Safe at Home: Yes Smoking Status: Never smoker Second Hand Exposure: Yes (SPOUSE SMOKES/PARENTS) ; Hx Alcohol Use: No Hx Substance Use: No Review of Systems Review of Systems: The patient denies palpitations, cough, lower extremity swelling, sore throat, fevers, chills, sweats, nausea, vomiting, diarrhea , constipation, abdominal pain, pelvic pain, blood in urine or stool, dysuria, urinary frequency or urgency, lightheadedness, dizziness, headache, memory loss, loss of consciousness, rash, abnormal bruising or bleeding, imbalance, or night sweats. The review of systems is otherwise negative other than for that already noted above, and at least 10 systems have been reviewed. Physical Exam Physical Exam: The patient is awake, alert and oriented 3, well developed and well nourished, normocephalic and atraumatic, lying in bed and in no acute distress. HEENT--PERRL, EOMI, mucous membranes and oropharynx normal. Neck--supple. No JVD. No bruits. Thyroid normal, trachea midline, no adenopathy. Heart--normal S1 and S2. No murmurs, rubs or gallops. Lungs--clear bilaterally, no respiratory distress, no accessory muscle use. Abdomen--normal bowel sounds and soft. Nontender. Nondistended. Extremities--no cyanosis or clubbing. No edema. There are good distal pulses b/l. Dermatologic--normal skin turgor, normal color, no abnormal lymph nodes, no rash. Neurologic--cranial nerves II through XII grossly intact. Rheumatologic--normal range of motion. Psychiatric--normal affect. Results & Data Vital Signs (Past 12 Hours) Vital Signs Temp Pulse Pulse Resp BP Pulse Ox 10/19/19 20:31 97 H 17 95 10/19/19 20:30 89 17 148/89 H 100 10/19/19 20:01 91 H 18 98 10/19/19 20:00 85 26 H 112/78 100 10/19/19 19:45 99 10/19/19 19:31 96 H 23 99 10/19/19 19:30 91 H 14 128/86 98 10/19/19 19:01 83 20 99 10/19/19 19:00 86 20 110/79 97 10/19/19 18:47 80 23 97 10/19/19 18:46 87 19 114/86 97 10/19/19 18:36 86 21 100 10/19/19 18:14 80 13 99 10/19/19 17:59 83 16 10/19/19 17:14 97.9 F 88 20 107/70 98 Laboratory Results Laboratory Results WBC 7.15 K/uL (4.8-10.8) 10/19/19 17:44 RBC 3.26 M/uL (4.2-5.4) L 10/19/19 17:44 Hgb 9.4 g/dL (12.0-16.0) L 10/19/19 17:44 Hct 30.7 % (37-47) L 10/19/19 17:44 MCV 94.2 fL (80-100) 10/19/19 17:44 MCH 28.8 pg (25-34) 10/19/19 17:44 MCHC 30.6 g/dL (32-36) L 10/19/19 17:44 RDW Std Deviation 48.7 fL (36.4-46.3) H 10/19/19 17:44 RDW Coeff of [place] 14.0 % (11.5-14.5) 10/19/19 17:44 Plt Count 295 K/uL (130-400) 10/19/19 17:44 MPV 10.2 fL (7.4-10.4) 10/19/19 17:44 Immature Gran % (Auto) 0.1 % 10/19/19 17:44 Neut % (Auto) 48.3 % 10/19/19 17:44 Lymph % (Auto) 28.8 % 10/19/19 17:44 [place] % (Auto) 13.7 % 10/19/19 17:44 Eos % (Auto) 7.1 % 10/19/19 17:44 Baso % (Auto) 2.0 % 10/19/19 17:44 Immature Gran # (Auto) 0.01 K/uL (0.00-0.02) 10/19/19 17:44 Neut # (Auto) 3.45 K/uL (1.4-6.5) 10/19/19 17:44 Lymph # (Auto) 2.06 K/uL (1.2-3.4) 10/19/19 17:44 [place]haw # (Auto) 0.98 K/uL (0.11-0.59) H 10/19/19 17:44 Eos # (Auto) 0.51 K/uL (0-0.5) H 10/19/19 17:44 Baso # (Auto) 0.14 K/uL (0-0.2) 10/19/19 17:44 PT 10.2 Seconds (9.0-12.0) 10/19/19 17:44 INR 1.0 (0.9-1.1) 10/19/19 17:44 APTT 24.2 Seconds (21.0-31.0) 10/19/19 17:44 PTT Ratio 0.9 10/19/19 17:44 D-Dimer 2030 ug/L FEU (0-500) H* 10/19/19 17:44 Sodium 140 mmol/L (136-145) 10/19/19 17:44 Potassium 4.2 mmol/L (3.5-5.1) 10/19/19 17:44 Chloride 111 mmol/L (98-107) H 10/19/19 17:44 Carbon Dioxide 24 mmol/L (21-32) 10/19/19 17:44 Anion Gap 5.0 (3-11) 10/19/19 17:44 BUN 20 mg/dl (7-18) H 10/19/19 17:44 Creatinine 1.29 mg/dl (0.6-1.2) H 10/19/19 17:44 Est Cr Clr Drug Dosing Not Reportable 10/19/19 17:44 Est GFR ( Amer) 51.8 10/19/19 17:44 Est GFR (Non-Af Amer) 44.7 10/19/19 17:44 BUN/Creatinine Ratio 15.8 (10-20) 10/19/19 17:44 Glucose 88 mg/dl (70-99) 10/19/19 17:44 Calcium 9.0 mg/dl (8.5-10.1) 10/19/19 17:44 Total Bilirubin 0.6 mg/dl (0.2-1) 10/19/19 17:44 AST 19 U/L (15-37) 10/19/19 17:44 ALT 22 U/L (12-78) 10/19/19 17:44 Alkaline Phosphatase 48 U/L (45-117) 10/19/19 17:44 Troponin I 7.480 ng/ml (0-0.045) H* 10/19/19 22:39 Total Protein 7.1 gm/dl (6.4-8.2) 10/19/19 17:44 Albumin 3.0 gm/dl (3.4-5.0) L 10/19/19 17:44 Globulin 4.1 gm/dl (2.5-4.0) H 10/19/19 17:44 Albumin/Globulin Ratio 0.7 (0.9-2) L 10/19/19 17:44 Hepatitis C Ab Screen Neg (Neg) 10/19/19 17:44 Influenza Type A (PCR) Neg for Influ A (Neg) 10/19/19 17:45 Influenza Type B (PCR) Neg for Influ B (Neg) 10/19/19 17:45 Diagnostic Findings [place], [place] [phone] XRay Report Patient: ALPHONSO DE LA CRUZ Date: 10/19/19 MR#: [id number]: [address] Acct ID:[id number]: Date: 1960[facility] Zip: [place] [address] Age: 59Location: ED Sex: F Room/Bed: Att Phy:Diagnosis: LUNG INFLAMATION Ragini Phy: Kevin VelizDManan.Service Date: 10/19/19 Fam Phy:Interpreting Phy: Benson Arambula MD Admit Phy: Ordering Phy: René Rao, cc: ~ TWO VIEW CHEST CLINICAL HISTORY: Dyspnea. FINDINGS: PA and lateral chest radiographs are compared to study dated 06/17/2019 and correlated with chest CT dated 03/02/2016. The heart is enlarged end there is evidence of previous cardiac valve surgery. There is prominence of the pulmonary vasculature. There is bibasilar scarring/atelectasis. No airspace consolidation or pleural effusion is identified. There is no pneumothorax. The skeletal structures are osteopenic. There are numerous healed bilateral rib fractures. Extensive postoperative change and spinal rods are noted in the thoracolumbar spine. There is subluxation of the left humeral head at the glenohumeral joint. An IVC filter is noted in the upper abdomen. IMPRESSION: 1. Cardiomegaly with prominence of the pulmonary vasculature. Correlate clinically for evidence of mild congestive failure. 2. No airspace consolidation or pleural effusion is identified. 3. There is inferior subluxation of the left humeral head at the glenohumeral articulation. ACT 112: Negative or not required by law. Electronically signed by: Benson Arambula M.D. 10/19/2019 6:48 PM Dictated: 10/19/191844 Transcribed: 10/19/191844 [place], [place] [phone] CT Scan Report Patient: ALPHONSO DE LA CRUZ Date: 10/19/19 MR#: [id number]: [address] Acct ID:[id number]: Date: 1960City Zip: [place] [address] Age: 59Location: ED Sex: F Room/Bed: Att Phy:Diagnosis: LUNG INFLAMATION Ragini Phy: Kevin Veliz D.O.Service Date: 10/19/19 Fam Phy:Interpreting Phy: Benson Arambula MD Admit Phy: Ordering Phy: René Rao, cc: ~ CT SCAN OF THE CHEST WITHOUT IV CONTRAST CLINICAL HISTORY: Dyspnea. Atypical chest pain. COMPARISON STUDY: Chest x-ray dated 10/19/2019. Chest CT dated 03/02/2016. TECHNIQUE: CT scan of the thorax was performed from the thoracic inlet to the upper abdomen. Images are reviewed in the axial, sagittal, and coronal planes. IV contrast was not administered for this examination as per the referring clinician. A dose lowering technique was utilized adhering to the principles of ALARA. The Examination is degraded by streak artifact from thoracolumbar spinal rods. CT DOSE: 773.63 mGy.cm FINDINGS: Thyroid: Imaged portions of the thyroid gland are normal in size and attenuation. Thoracic aorta: There is atherosclerotic calcification of the thoracic aorta, which is normal in caliber and demonstrates standard 3-vessel arch anatomy. Heart: The heart is mildly enlarged and without pericardial effusion. Postoperative change is seen involving the aortic valve. There is diminished attenuation of the cardiac blood pool as compared to the myocardium suggesting anemia. Mild pericardial thickening is noted. Lungs and pleural spaces: There are trace pleural effusions with dependent atelectasis. No airspace consolidation is seen typical for pneumonia. The trachea and central airways are clear. A 4 mm pleural-based nodule in the right middle lobe on image #175 and a 3 mm left lower lobe nodule on image #177 have been present dating back to 2016 and are of doubtful significance. Mediastinum: There is no mediastinal lymphadenopathy. Jada: Not well assessed without IV contrast. Axillae: There is no axillary lymphadenopathy. Upper abdomen: There are prominent upper abdominal lymph nodes seen in the gastrohepatic space and farida hepatis measure up to 10 mm in short axis Partially visualized upper abdominal viscera is otherwise grossly unremarkable. Skeletal structures: The skeletal structures are osteopenic. Extensive postoperative change is noted throughout the thoracolumbar spine with spinal rods in place. Mild scoliosis is observed. No lytic or blastic bony lesions are seen. Arthritic changes noted in the shoulders. There are numerous healed bilateral rib fractures. IMPRESSION: 1. There are trace pleural effusions, right larger than left with associated atelectasis. 2. Mild cardiac enlargement. No pericardial effusion is identified. 3. Mild pericardial thickening is suggested and may be related to recent surgery. Correlate clinically for evidence of a mild pericarditis. 4. No airspace consolidation is seen typical for pneumonia. 5. Prominent upper abdominal lymph nodes are nonspecific and may be related to recent surgery. Again, clinical correlation will be required. 6. Additional findings as above. ACT 112: Negative or not required by law. Electronically signed by: Benson Arambula M.D. 10/19/2019 9:48 PM Dictated: 10/19/192140 Transcribed: 10/19/192140 Code Status & VTE Plan Code Status Full code VTE Prophylaxis Plan VTE Prophylaxis will be ordered: Yes PG Care Time/CCT Total # of Minutes Spent Total Time Spent with Patient: Total time spent is greater than 50% in coordination of care (as documented) at patient's floor/unit and/or counseling patient: Coding Level of Care Code 23842 Initial Inpt Care Lvl 3 Diagnoses S/P TAVR (transcatheter aortic valve replacement) Z95.2 Pericarditis I30.9 Chronicity: acute Pericarditis type: unspecified type New onset left bundle branch block (LBBB) I44.7 Elevated troponin R79.89 Fibromyalgia M79.7 Multiple closed fractures of ribs of both sides with routine healing S22.43XD Anxiety F41.9 Anemia D64.9 Asthma J45.909 (1) Pericarditis Chronicity: acute Pericarditis type: unspecified type Qualified Code(s): I30.9 - Acute pericarditis, unspecified
--- NOTE | 2019-10-19 21:50 | CT Scan Report ---
CT SCAN OF THE CHEST WITHOUT IV CONTRAST CLINICAL HISTORY: Dyspnea. Atypical chest pain. COMPARISON STUDY: Chest x-ray dated 10/19/2019. Chest CT dated 03/02/2016. TECHNIQUE: CT scan of the thorax was performed from the thoracic inlet to the upper abdomen. Images are reviewed in the axial, sagittal, and coronal planes. IV contrast was not administered for this ex amination as per the referring clinician. A dose lowering technique was utilized adhering to the sylvia rosen of MILANA. The Examination is degraded by streak artifact from thoracolumbar spinal rods. CT DOSE: 773.63 mGy.cm FINDINGS: Thyroid: Imaged portions of the thyroid gland are normal in size and attenuation. Thoracic aorta: There is atherosclerotic calcification of the thoracic aorta, which is normal in [place]cus and demonstrates standard 3-vessel arch anatomy. Heart: The heart is mildly enlarged and without pericardial effusion. Postoperative change is seen in volving the aortic valve. There is diminished attenuation of the cardiac blood pool as compared to th e myocardium suggesting anemia. Mild pericardial thickening is noted. Lungs and pleural spaces: There are trace pleural effusions with dependent atelectasis. No airspace c onsolidation is seen typical for pneumonia. The trachea and central airways are clear. A 4 mm pleural -based nodule in the right middle lobe on image #175 and a 3 mm left lower lobe nodule on image #177 have been present dating back to 2015 and are of doubtful significance. Mediastinum: There is no mediastinal lymphadenopathy. Jada: Not well assessed without IV contrast. Axillae: There is no axillary lymphadenopathy. Upper abdomen: There are prominent upper abdominal lymph nodes seen in the gastrohepatic space and po rta hepatis measure up to 10 mm in short axis Partially visualized upper abdominal viscera is otherwi se grossly unremarkable. Skeletal structures: The skeletal structures are osteopenic. Extensive postoperative change is noted throughout the thoracolumbar spine with spinal rods in place. Mild scoliosis is observed. No lytic or blastic bony lesions are seen. Arthritic changes noted in the shoulders. There are numerous healed b ilateral rib fractures. IMPRESSION: 1. There are trace pleural effusions, right larger than left with associated atelectasis. 2. Mild cardiac enlargement. No pericardial effusion is identified. 3. Mild pericardial thickening is suggested and may be related to recent surgery. Correlate clinicall y for evidence of a mild pericarditis. 4. No airspace consolidation is seen typical for pneumonia. 5. Prominent upper abdominal lymph nodes are nonspecific and may be related to recent surgery. Again, clinical correlation will be required. 6. Additional findings as above. ACT 112: Negative or not required by law. Electronically signed by: Benson Arambula M.D. 10/19/2019 9:48 PM
[2019-10-19] MEDS ORDERED: TRIAMCINOLONE ACET 0.1% CR 15 GM TUBE TOP PRN (23:00)
[2019-10-19] MEDS ORDERED: NITROGLYCERIN SL 0.4 MG/TAB TAB SL PRN (23:00)
[2019-10-19] MEDS ORDERED: LORazepam 1 MG TAB PO SCH (23:00)
[2019-10-19] MEDS ORDERED: DICYCLOMINE HCL 10 MG CAP PO PRN (23:00)
[2019-10-19] MEDS ORDERED: CLOPIDOGREL BISULFATE 75 MG TAB PO SCH (23:00)
[2019-10-19] MEDS ORDERED: ONDANSETRON INJ 2 MG/ML 2 ML VIAL IV PRN (23:00)
[2019-10-19] MEDS ORDERED: ALUMINUM/MAGNESIUM SUSP 30 ML UDC PO PRN (23:00)
[2019-10-19] MEDS ORDERED: POLYETHYLENE (MIRALAX) 17 GM PACK PO PRN (23:00)
[2019-10-19] MEDS ORDERED: MAGNESIUM HYDROXIDE SUSP 30 ML UDC PO PRN (23:00)
[2019-10-19] MEDS ORDERED: ACETAMINOPHEN 500 MG TAB PO PRN (23:00)
[2019-10-19] MEDS ORDERED: CYCLOBENZAPRINE HCL 10 MG TAB PO PRN (23:06)
[2019-10-19] MEDS ORDERED: ALBUTEROL HFA 8 GM INHALER INH PRN (23:08)
[2019-10-20] MEDS ORDERED: BUTALBITAL/ACETAMIN/CAFFEINE TAB PO PRN (00:32)
[2019-10-20] MEDS: HYDROmorphone INJ 1 MG/ML SYRINGE IV PRN ×4 (01:06→22:13)
[2019-10-20] MEDS ORDERED: NITROGLYCERIN 2% OINTMENT 30GM TUBE EXT ONE (02:31)
[2019-10-20] MEDS ORDERED: OXYCODONE HCL IR 5 MG TAB (IMMEDIATE RELEASE) PO PRN (02:34)
[2019-10-20] MEDS ORDERED: ALBUMIN 5% 250 ML IV ONE (02:45)
[2019-10-20] MEDS: NSS + 20MEQ KCL 20 MEQ/1,000 ML BAG IV SCH ×2 (03:01→11:55)
--- NOTE | 2019-10-20 03:48 | Communication Note ---
Date of Service: October 20, 2019 Pt with uptrending trop. On bedside assessment pt continues to have R shoulder/chest pain worsened with deep inspiration unchanged from prior. No shortness of breath. EKG unchanged from prior. Nitro paste started, pt already received ASA and narcotic analgesia. On reassessment pt clinically improved. Continue to trend troponin for peak, discussed with attending provider. Continue nitropaste, hold for Sys BP<100, contact provider for sysBP<110
[2019-10-20] MEDS ORDERED: PERFLUTREN LIPID MICROSPHERE (DEFINITY) IV ONE (06:52)
[2019-10-20] MEDS: COLCHICINE 0.6 MG TAB PO SCH ×2 (07:21→21:43)
[2019-10-20] MEDS: ASPIRIN 81 MG CHEW PO SCH ×2 (07:21→21:43)
[2019-10-20] MEDS: OXYCODONE HCL IR 5 MG TAB (IMMEDIATE RELEASE) PO PRN ×3 (07:22→19:37)
[2019-10-20] MEDS: LORazepam 1 MG TAB PO PRN ×3 (07:22→23:06)
[2019-10-20] MEDS: CALCIUM 600MG + VIT D 400 IU TAB PO SCH (07:22)
[2019-10-20 07:25] LABS: Basophils # (auto) 0.07 K/uL (0-0.2); Eosinophils # (auto) 0.47 K/uL (0-0.5); Eosinophils % (auto) 6.4 %; Hematocrit (blood only) 28.5 % (37-47); Hemoglobin 8.6 g/dL (12.0-16.0); Immature Granulocytes # (auto) 0.02 K/uL (0.00-0.02); Immature Granulocytes % (auto) 0.3 %; Lymphocytes # (auto) 1.84 K/uL (1.2-3.4); Mean Corpuscular Hemoglobin 28.4 pg (25-34); Mean Corpuscular Hgb Conc 30.2 g/dL (32-36); Mean Corpuscular Volume 94.1 fL (80-100); Mean Platelet Volume 10.1 fL (7.4-10.4); Monocytes # (auto) 1.01 K/uL (0.11-0.59); Monocytes % (auto) 13.7 %; Neutrophils # (auto) 3.94 K/uL (1.4-6.5); Neutrophils % (auto) 53.6 %; Platelet Count 309 K/uL (130-400); RDW Coefficient of Variation 13.8 % (11.5-14.5); RDW Standard Deviation 47.8 fL (36.4-46.3); Red Blood Count 3.03 M/uL (4.2-5.4); White Blood Count 7.35 K/uL (4.8-10.8)
[2019-10-20 07:35] LABS: Prothrombin Time 10.6 Seconds (9.0-12.0)
[2019-10-20 07:53] LABS: Albumin Level 2.9 gm/dl (3.4-5.0); BUN Creatinine Ratio 16.4 (10-20); Calcium 8.7 mg/dl (8.5-10.1); Creatinine Clr Calc Pharmacy 64.8 ml/min; Est GFR (African American) 61.4; Potassium 4.5 mmol/L (3.5-5.1)
[2019-10-20 08:15] LABS: Phosphorus 3.4 mg/dl (2.5-4.9); Troponin I 8.01 ng/ml (0-0.045)
[2019-10-20] MEDS ORDERED: ASPIRIN 81 MG ECTAB PO SCH (09:00)
--- NOTE | 2019-10-20 13:29 | Hospitalist Progress Note ---
Date of Service October 20, 2019 Assessment & Plan (1) Pericarditis: likely myopericarditis, h/o inflammatory disease, could be rheumatologic had similar symptoms prior to TAVR no pericardial effusion on echo responded well to Colchicine, will continue BID dosing continue aspirin troponin trending down, if she feels better tomorrow will d/c to home with cardiology follow up (2) S/P TAVR (transcatheter aortic valve replacement): Status post TAVR 7 days ago/status post stented coronary artery- CT of chest with pericardial thickening New left bundle branch block echo shows valve in good position, functioning well TAVR and stent not causing her symptoms, if her left main stent occluded she would likely be in shock, have significant wall motion abnormality (3) New onset left bundle branch block (LBBB): unclear why, she did not have LBBB on EKG after procedure could be due to myopericarditis? not concerning for ACS, no role for heparin drip, appreciate consult from Dr. Benson troponin going down (4) Elevated troponin: due to myopericarditis, not due to ACS trending down on last check (5) Fibromyalgia: Continue usual supportive medications (6) Multiple closed fractures of ribs of both sides with routine healing: Noted on CT, may likely be contributing to some of her pain as well, including that of fibromyalgia (7) Anxiety: Continue Lorazepam 1 mg p.o. 3 times daily (8) Anemia: Hemoglobin 9.4 upon admission, with most recent being 10.1 on 06/23/2019. Follow serially (9) Asthma: Continue usual inhalers. 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 Benson I discussed with Dr. Benson after he saw patient her echo showed good valve position and function, no wall motion abnormalities he feels that she has myopericarditis, responded well to colchicine and aspirin most recent troponin trending down Review of Systems Review of Systems: All systems reviewed & are unremarkable except as noted in HPI & below Constitutional: + body aches and + weakness; no fever, no chills and no sweats Respiratory: + dyspnea and + pain on inspiration Cardiovascular: + chest pain (mild, nearly resolved) and + dyspnea; no palpitations, no syncope and no edema Gastrointestinal: no abdominal pain, no nausea, no vomiting, no constipation and no diarrhea/loose stools Physical Exam Constitutional: WD/WN, vitals as above + overweight Eyes: PERRL, conjunctivae normal, anicteric sclerae ENMT: external ear and nose normal, oropharynx normal Neck: trachea midline, no thyromegaly Respiratory: normal respiratory effort, lungs clear to auscultation Cardiovascular: Rate/Rhythm: regular rate and regular rhythm Heart Sounds: normal S1, normal S2 and + cardiac rub (slight); no murmur Vessels: no JVD Extremities: normal capillary refill; no edema Gastrointestinal (Abdomen): normal bowel sounds, soft, nontender, no hepatosplenomegaly Musculoskeletal: no cyanosis or clubbing, extremities motor strength 5/5 Skin: no rashes, warm and dry Neurologic: patellar DTR's 2+ bilat, sensation intact and PERRL, EOMI, accommodation nl, no face palsy, no dysarthria Psychiatric: A+Ox3, euthymic affect Lymphatic: no cervical or axillary lymphadenopathy Results & Data ([facility]) Vital Signs (Past 12 Hours) Vital Signs Temp Pulse Pulse Resp BP Pulse Ox 10/20/19 12:18 36.6 C 89 18 125/63 96 10/20/19 08:10 96 H 10/20/19 07:35 36.9 C 89 18 133/68 96 10/20/19 03:54 88 16 142/90 H 96 10/20/19 03:10 86 16 130/85 97 10/20/19 02:39 85 18 135/88 97 10/20/19 02:37 88 16 142/91 H 98 10/20/19 02:35 36.7 C 90 16 137/92 97 10/20/19 02:33 36.7 C 86 18 134/86 96 Laboratory Results Laboratory Results - last 24 hr 10/19/19 10/19/19 10/20/19 17:44 22:39 07:01 WBC 7.35 RBC 3.03 L Hgb 8.6 L Hct 28.5 L MCV 94.1 MCH 28.4 MCHC 30.2 L RDW Std Deviation 47.8 H RDW Coeff of [place] 13.8 Plt Count 309 MPV 10.1 Immature Gran % (Auto) 0.3 Neut % (Auto) 53.6 Lymph % (Auto) 25.0 [place] % (Auto) 13.7 Eos % (Auto) 6.4 Baso % (Auto) 1.0 Immature Gran # (Auto) 0.02 Neut # (Auto) 3.94 Lymph # (Auto) 1.84 [place] # (Auto) 1.01 H Eos # (Auto) 0.47 Baso # (Auto) 0.07 PT INR Sodium Potassium Chloride Carbon Dioxide Anion Gap BUN Creatinine Est Cr Clr Drug Dosing Est GFR ( Amer) Est GFR (Non-Af Amer) BUN/Creatinine Ratio Glucose Calcium Phosphorus Troponin I 7.480 H* Albumin Hepatitis C Ab Screen Neg 10/20/19 10/20/19 10/20/19 07:01 07:01 15:08 WBC RBC Hgb Hct MCV MCH MCHC RDW Std Deviation RDW Coeff of [place] Plt Count MPV Immature Gran % (Auto) Neut % (Auto) Lymph % (Auto) [place] % (Auto) Eos % (Auto) Baso % (Auto) Immature Gran # (Auto) Neut # (Auto) Lymph # (Auto) [place] # (Auto) Eos # (Auto) Baso # (Auto) PT 10.6 INR 1.0 Sodium 140 Potassium 4.5 Chloride 111 H Carbon Dioxide 25 Anion Gap 4.0 BUN 18 Creatinine 1.12 Est Cr Clr Drug Dosing 64.8 Est GFR ( Amer) 61.4 Est GFR (Non-Af Amer) 53.0 BUN/Creatinine Ratio 16.4 Glucose 109 H Calcium 8.7 Phosphorus 3.4 Troponin I 8.010 H* 7.800 H* Albumin 2.9 L Hepatitis C Ab Screen Medications Administered Current Inpatient Medications Acetaminophen (Tylenol) 500 mg PO QID PRN PRN Reason: Pain Stop: 11/18/19 22:59 Last Admin: 10/20/19 03:38 Dose: 500 mg Documented by: Acetaminophen/Butalbital/Caffeine (Fioricet) 1 tab PO DAILY PRN PRN Reason: Migraine Headache Stop: 11/19/19 00:31 Al Hydrox/Mg Hydrox/Simethicone (Maalox) 15 ml PO Q4H PRN PRN Reason: Dyspepsia Stop: 11/18/19 22:59 Albuterol (Ventolin Hfa) 2 puffs INH Q6H PRN PRN Reason: Shortness Of Breath Or Wheezing Stop: 11/18/19 23:07 Aspirin (Aspirin Chew) 81 mg PO BID [facility] Stop: 11/19/19 08:59 Last Admin: 10/20/19 21:43 Dose: 81 mg Documented by: Clopidogrel Bisulfate (Plavix) 75 mg PO QDL [facility] Stop: 11/19/19 13:59 Last Admin: 10/20/19 14:39 Dose: 75 mg Documented by: Colchicine (Colcrys) 0.6 mg PO BID [facility] Stop: 11/19/19 08:59 Last Admin: 10/20/19 21:43 Dose: 0.6 mg Documented by: Cyclobenzaprine HCl (Flexeril) 10 mg PO BID PRN PRN Reason: Muscle Spasm Stop: 11/18/19 23:05 Dicyclomine HCl (Bentyl) 10 mg PO QID PRN PRN Reason: Abdominal Discomfort Stop: 11/18/19 22:59 Last Admin: 10/20/19 17:15 Dose: 10 mg Documented by: Hydromorphone HCl (Dilaudid) 0.2 mg IV Q3H PRN PRN Reason: Severe Pain Stop: 11/02/19 21:33 Last Admin: 10/20/19 22:13 Dose: 0.2 mg Documented by: Potassium Chloride/Sodium Chloride (Normal Saline W/20 Meq Kcl) 20 meq in 1,000 mls @ 100 mls/hr IV .Q10H [facility] Stop: 11/19/19 02:44 Last Infusion: 10/20/19 21:43 Dose: 0 mls/hr Documented by: Lorazepam (Ativan) 1 mg PO Q8H PRN PRN Reason: Anxiety Stop: 11/19/19 07:59 Last Admin: 10/20/19 15:06 Dose: 1 mg Documented by: Magnesium Hydroxide (Milk Of Magnesia) 30 ml PO Q12H PRN PRN Reason: Constipation Stop: 11/18/19 22:59 Multivitamins/Minerals (Caltrate Plus) 1 tab PO QAM [facility] Stop: 11/19/19 08:59 Last Admin: 10/20/19 07:22 Dose: 1 tab Documented by: Nitroglycerin (Nitrostat) 0.4 mg SL UD PRN PRN Reason: Chest Pain Stop: 11/18/19 22:59 Ondansetron HCl (Zofran) 4 mg IV Q6H PRN PRN Reason: Nausea Stop: 11/18/19 22:59 Oxycodone HCl (Roxicodone Immediate Rel) 7.5 mg PO Q4H PRN PRN Reason: Moderate Pain Stop: 11/03/19 01:11 Last Admin: 10/20/19 19:37 Dose: 7.5 mg Documented by: Pantoprazole Sodium (Protonix) 40 mg PO QAM [facility] Stop: 11/19/19 13:44 Last Admin: 10/20/19 14:23 Dose: 40 mg Documented by: Polyethylene Glycol (Miralax Powder Packet) 17 gm PO DAILY PRN PRN Reason: Constipation Stop: 11/18/19 22:59 Triamcinolone Acetonide (Kenalog 0.1%) 1 appln TOP BID PRN PRN Reason: Rash Stop: 11/18/19 22:59 PG Care Time/CCT Total # of Minutes Spent Total Time Spent: 40 Total Time Spent with Patient: Total time spent is greater than 50% in coordination of care (as documented) at patient's floor/unit and/or counseling patient: long talk with patient's discussion with Dr. Benson Coding Level of Care Code 02837 Subseq Hosp Care Lvl 3 Diagnoses Pericarditis I30.9 Chronicity: acute Pericarditis type: unspecified type S/P TAVR (transcatheter aortic valve replacement) Z95.2 New onset left bundle branch block (LBBB) I44.7 Elevated troponin R79.89 Fibromyalgia M79.7 Multiple closed fractures of ribs of both sides with routine healing S22.43XD Anxiety F41.9 Anemia D64.9 Asthma J45.909 (1) Pericarditis Chronicity: acute Pericarditis type: unspecified type Qualified Code(s): I30.9 - Acute pericarditis, unspecified
--- NOTE | 2019-10-20 13:53 | Cardiology Consultation ---
Date of Consultation Patient was admitted with shortness of breath and chest tightness. She describes the chest tightness is worse laying flat and better sitting up. She describes it worse taking a deep breath. She denies any fevers or chills or night sweats. She denies any recent viral illness. She does note she has had 3 episodes similar to this and actually started to have symptoms of this before she had her TAVR procedure completed. She has chronic inflammatory disease of unclear etiology. She notes it all started after she had fusion of T5-S1. She can intermittently get swelling of her entire face and eyes along with her lower extremities. She gets eosinophilia. She notes that she would take steroids with improvement in her symptoms but now steroids cause her to have severe joint discomfort. She received a dose of Toradol last night as well as twice daily colchicine with her pain which was 10 out of 10 last evening is down to 2 out of 10. She feels significantly better. She does have a new left bundle branch block on her EKG. This is new compared to her discharge telemetry monitoring at [facility]. She has no lower extremity edema she denies any groin discomfort. She has any bleeding bruising dark stools or black stools. Her appetite stable her weight is stable she denies any constitutional symptoms. She has chronic myalgias and arthralgias and severe low back pain for which she requires benzodiazepines and narcotics. She has any palpitations or fluttering. she has any orthostatic symptoms. She is resting comfortably today in bed she is pink and she does not appear to be in any distress. The rest of a complete her systems otherwise negative October 20, 2019 History of Present Illness Attending Physician: Dewayne Montes DO Allergies Allergy/AdvReac Type Severity Reaction Status Date / Time metronidazole [From Flagyl] Allergy Severe Hives Verified 09/02/19 09:40 Gold Salts Allergy Intermediate Hives Verified 09/02/19 09:40 nafcillin Allergy Intermediate Hives Verified 09/02/19 09:40 wheat Allergy Intermediate migraines/joint Verified 09/02/19 09:40 pain medroxyprogesterone Allergy Mild HIVES Verified 09/02/19 09:40 peanut Allergy Mild Migraine Verified 09/02/19 09:40 shellfish derived Allergy Mild Migraine Verified 09/02/19 09:40 Penicillins AdvReac Intermediate Hives Verified 09/02/19 09:40 morphine AdvReac Mild nausea Verified 09/02/19 09:40 /vomit CONTRAST MEDIA AdvReac EDEMA, Uncoded 10/19/19 19:49 SKIN PEELING, HAIR LOSS Home Medications Home Medications Medication Instructions Recorded Confirmed Type acetaminophen [Tylenol Extra 500 mg PO QID PRN 03/23/19 10/19/19 History Strength] albuterol sulfate [ProAir HFA] 2 puff INHALATION Q6H PRN 03/23/19 10/19/19 History tjoldoglws-gogxifxoecnup-llxh 1 cap PO DAILY PRN 03/23/19 10/19/19 History calcium carbonate [Calcium 600] 600 mg PO QAM 03/23/19 10/19/19 History cyclobenzaprine 10 mg PO BID PRN 03/23/19 10/19/19 History ibuprofen 400 - 800 mg PO Q6H PRN 03/23/19 10/19/19 History lorazepam [Ativan] 1 mg PO TID 03/23/19 10/19/19 History oxycodone-acetaminophen [Endocet] 1 tab PO 5XD 03/23/19 10/19/19 History triamcinolone acetonide 1 applic TOPICAL BID PRN 03/23/19 10/19/19 History ondansetron HCl [Zofran] 4 mg PO BID PRN 06/17/19 10/19/19 History dicyclomine 10 mg PO QID PRN 08/05/19 10/19/19 History aspirin [Aspirin Low Dose] 81 mg PO QAM 10/19/19 10/19/19 History clopidogrel 75 mg PO UD 10/19/19 10/19/19 History Patient History Medical History Anemia Anxiety Aortic stenosis DX 2017-TO HAVE CARDIAC CATH 09/05/[address] TORRES TO EVALUATE-SHOWING SYMPTOMS OF SOB, FATIGUE, "HEAVY CHEST" PER PT Asthma allergy induced---inhaler prn Chronic back pain Degenerative disc disease Fibromyalgia Gastroparesis When having EGD in endoscopy unit, patients stomach is full of solid foods. patient states she vomitted in prodecure room. When done in Main OR, she was intubated so she would not aspirate History of duodenal ulcer History of DVT (deep vein thrombosis) 2009--left leg got during sepsis History of esophageal dilatation Hypertension (Chronic) IBS (irritable bowel syndrome) Migraine Multiple closed fractures of ribs of both sides with routine healing Nausea and vomiting after administration of anesthetic agent Osteoarthritis Spinal stenosis Surgical History [place] filter in place 2009 d/t blood clot in left leg History of bilateral tubal ligation History of colonoscopy History of esophagogastroduodenoscopy (EGD) History of laparoscopy x3--for endometriosis History of repair of right rotator cuff History of right oophorectomy History of spinal fusion x3---t5-s1 History of tooth extraction Family History Mother Family history of diabetes mellitus Sister Family history of diabetes mellitus Grandmother (Paternal) Family hx of colon cancer Father Family hx colonic polyps Other No family history of adverse response to anesthesia No significant family history Social History Preferred Language: Polish Communication Ability: Effective 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 Beliefs That Will Affect Care: None marital status: Current Living Situation: Spouse Feels Safe at Home: Yes Smoking Status: Never smoker Second Hand Exposure: Yes (SPOUSE SMOKES/PARENTS) ; Hx Alcohol Use: No Hx Substance Use: No Results & Data ([facility]) Vital Signs (Past 12 Hours) Vital Signs Temp Pulse Pulse Resp BP Pulse Ox 10/20/19 12:18 36.6 C 89 18 125/63 96 10/20/19 08:10 96 H 10/20/19 07:35 36.9 C 89 18 133/68 96 10/20/19 03:54 88 16 142/90 H 96 10/20/19 03:10 86 16 130/85 97 10/20/19 02:39 85 18 135/88 97 10/20/19 02:37 88 16 142/91 H 98 10/20/19 02:35 36.7 C 90 16 137/92 97 10/20/19 02:33 36.7 C 86 18 134/86 96 she is awake alert oriented x3 in no acute distress. HEENT: 2+ carotid upstrokes normal to carotid bruits jugular is pressure appear ed normal her sclerae anicteric her hearing is normal Lungs: Clear to auscultation bilaterally no rales rhonchi or wheezing Heart: Regular rate and rhythm no appreciable murmurs rubs or gallops Abdomen: Soft nontender chronically distended positive bowel sounds obese Extremities: No clubbing cyanosis with trace bilateral lower extremity edema Psychiatric affect appeared appropriate Neurologic she is awake alert and oriented x3 Impressions: 1. Status post TAVR for severe aortic stenosis with a 25 mm [place] sapient 3 valve 2. Post procedure left main stenting secondary to mild compromise of the ostial left main number next 3. Left bundle branch block which is new since the procedure 4. History consistent with myopericarditis I did review all of her studies with the structural heart disease program at [facility]. I also reviewed her echocardiogram which was completed today. There is no evidence of an LAD wall motion abnormality. If she occluded her left main stent she would look significantly sicker than she is and in addition she should have a wall motion abnormality. There is no evidence of a pericardial effusion her LV function is normal her TAVR valve is functioning normally without any significant valvular or perivalvular aortic insufficiency. She has a history which sounds like pericarditis on 2 prior occasions. Likely this represents myopericarditis. Her symptoms have already improved with Toradol and colchicine. I would continue her aspirin and Plavix for her left main stent as well as her TAVR valve. She should remain on colchicine 0.6 mg twice daily and we can determine as an outpatient when to adjust the dosing. In addition I discussed with her that she may need to see rheumatology given her recurrent episodes of What sound like pericarditis with a negative rheumatologic work-up by laboratory studies as well as her history of hyper eosinophilia. Again at this point there is nothing to suggest stent thrombosis. She does not need a heparin drip. She should remain on the rest of her medical regimen. We will trend her third troponin to make sure it is trending down. I did review her monitor at this point there is no evidence of high degree AV block or bradycardia. As I discussed with Dr. Montes I would keep her overnight if she is feeling better tomorrow and her troponin is trending down she can be discharged home.
--- NOTE | 2019-10-20 13:56 | XCELERA ---
[id number] [id number]
[2019-10-20] MEDS ORDERED: CLOPIDOGREL BISULFATE 75 MG TAB PO SCH (14:00)
[2019-10-20] MEDS: PANTOprazole 40 MG TAB PO SCH (14:23)
--- NOTE | 2019-10-20 18:29 | Electrocardiogram Report ---
Test Reason : Blood Pressure : / mmHG Vent. Rate : 088 BPM Atrial Rate : 088 BPM P-R Int : 172 ms QRS Dur : 154 ms QT Int : 422 ms P-R-T Axes : 044 054 -73 degrees QTc Int : 510 ms Normal sinus rhythm Left bundle branch block Abnormal ECG When compared with ECG of 02-MAR-2016 19:43, Left bundle branch block is now Present Confirmed by Natanael Montenegro ([id number]) on 10/20/2019 6:28:42 PM Referred By: REFERRED SELF Confirmed By:Natanael Montenegro
--- NOTE | 2019-10-20 22:30 | Electrocardiogram Report ---
Test Reason : Blood Pressure : / mmHG Vent. Rate : 083 BPM Atrial Rate : 083 BPM P-R Int : 206 ms QRS Dur : 150 ms QT Int : 416 ms P-R-T Axes : 045 052 -81 degrees QTc Int : 488 ms Normal sinus rhythm Left bundle branch block Abnormal ECG When compared with ECG of 19-OCT-2019 17:51, No significant change was found Confirmed by Natanael Montenegro ([id number]) on 10/20/2019 10:29:56 PM Referred By: REFERRED SELF Confirmed By:Natanael Montenegro
--- NOTE | 2019-10-20 22:46 | Electrocardiogram Report ---
Test Reason : Blood Pressure : / mmHG Vent. Rate : 084 BPM Atrial Rate : 084 BPM P-R Int : 200 ms QRS Dur : 152 ms QT Int : 412 ms P-R-T Axes : 052 047 -83 degrees QTc Int : 486 ms Normal sinus rhythm Left bundle branch block Abnormal ECG When compared with ECG of 20-OCT-2019 02:23, No significant change was found Confirmed by Natanael Montenegro ([id number]) on 10/20/2019 10:46:16 PM Referred By: REFERRED SELF Confirmed By:Natanael Montenegro
[2019-10-20] MEDS ORDERED: CETIRIZINE HCL 10 MG TABLET PO ONE (23:21)
[2019-10-20] MEDS ORDERED: FAMOTIDINE 20 MG in SYRINGE 3 ML IV ONE (23:30)
[2019-10-21] MEDS: HYDROmorphone INJ 1 MG/ML SYRINGE IV PRN (04:01)
[2019-10-21] MEDS ORDERED: DiphenhydrAMINE HCL 50 MG/ML VIAL IV STA (05:00)
[2019-10-21] MEDS ORDERED: FAMOTIDINE 20 MG in SYRINGE 3 ML IV ONE (05:00)
[2019-10-21] MEDS: NSS + 20MEQ KCL 20 MEQ/1,000 ML BAG IV SCH (05:18)
[2019-10-21] MEDS: LORazepam 1 MG TAB PO PRN (07:37)
[2019-10-21] MEDS: ASPIRIN 81 MG CHEW PO SCH (07:37)
[2019-10-21] MEDS: OXYCODONE HCL IR 5 MG TAB (IMMEDIATE RELEASE) PO PRN (07:38)
[2019-10-21] MEDS: CALCIUM 600MG + VIT D 400 IU TAB PO SCH (07:40)
[2019-10-21] MEDS: COLCHICINE 0.6 MG TAB PO SCH (07:40)
[2019-10-21] MEDS: PANTOprazole 40 MG TAB PO SCH (07:41)
[2019-10-21] MEDS ORDERED: CETIRIZINE HCL 10 MG TABLET PO SCH (09:00)
[2019-10-21 09:21] LABS: Basophils # (auto) 0.02 K/uL (0-0.2); Basophils % (auto) 0.3 %; Eosinophils # (auto) 0.54 K/uL (0-0.5); Eosinophils % (auto) 7.8 %; Hematocrit (blood only) 34.8 % (37-47); Hemoglobin 10.9 g/dL (12.0-16.0); Immature Granulocytes # (auto) 0.02 K/uL (0.00-0.02); Immature Granulocytes % (auto) 0.3 %; Lymphocytes # (auto) 0.56 K/uL (1.2-3.4); Lymphocytes % (auto) 8.1 %; Mean Corpuscular Hemoglobin 29.1 pg (25-34); Mean Corpuscular Hgb Conc 31.3 g/dL (32-36); Mean Corpuscular Volume 92.8 fL (80-100); Mean Platelet Volume 10.2 fL (7.4-10.4); Monocytes # (auto) 0.39 K/uL (0.11-0.59); Monocytes % (auto) 5.7 %; Neutrophils # (auto) 5.37 K/uL (1.4-6.5); Neutrophils % (auto) 77.8 %; Platelet Count 402 K/uL (130-400); RDW Coefficient of Variation 13.7 % (11.5-14.5); RDW Standard Deviation 46.5 fL (36.4-46.3); Red Blood Count 3.75 M/uL (4.2-5.4)
--- NOTE | 2019-10-21 09:39 | Cardiology Progress Note ---
Date of Service October 21, 2019 Subjective She feels dramatically better. She notes that her chest tightness has complet luis resolved. She can take a deep breath. She denies any lightheadedness or dizziness. She denies any shortness of breath. She can walk to the bathroom without being short of breath. She did develop a rash on her face arms chest and legs it is diffusely red with mild erythema. She did receive Benadryl last night with some improvement. She denies any palpitations or fluttering or feeling her heart racing. She denies a cough or dry mouth or dry eyes. Her joint discomfort seems better. Results & Data Vital Signs (Past 12 Hours) Vital Signs Temp Pulse Pulse Resp BP Pulse Ox Pulse Ox 10/21/19 07:07 36.9 C 100 H 19 123/87 100 10/21/19 04:21 36.6 C 56 L 20 146/88 H 94 10/21/19 00:18 37.2 C 91 H 18 144/78 H 99 10/20/19 23:00 96 H 99 she is awake alert oriented x3 in no acute distress. HEENT: 2+ carotid upstrokes normal to carotid bruits jugular is pressure appear ed normal her sclerae anicteric her hearing is normal Lungs: Clear to auscultation bilaterally no rales rhonchi or wheezing Heart: Regular rate and rhythm no appreciable murmurs rubs or gallops Abdomen: Soft nontender chronically distended positive bowel sounds obese Extremities: No clubbing cyanosis with trace bilateral lower extremity edema Psychiatric affect appeared appropriate Skin: Diffuse redness on her face arms chest and legs with mild erythema Impressions: 1. Status post TAVR for severe aortic stenosis with a 25 mm [place] sapient 3 valve 2. Post procedure left main stenting secondary to mild compromise of the ostial left main number next 3. Left bundle branch block which is new since the procedure 4. History consistent with myopericarditis 5. History of hyper eosinophilia 6. Question autoimmune disease I did discuss her case with Dr. Farley. She in essence has a snorkel of her left main where half of the stent is in the left main and the other half is snorkel into the aorta. This was done in order to avoid the [place] aortic leaflets from occluding the ostium of the left main. Her sinotubular junction was effaced and her left main origin was lower than anticipated. Given the fact she was too high risk for SAVR they proceeded with TAVR and the subsequent snorkel procedure. He notes there are rare circumstances where pool player have tried to reenter the left main stent. Her history is most consistent with myopericarditis. She is had dramatic improvement with Toradol and colchicine. I do wonder she does not have either some underlying autoimmune disease or given her history of hypereosinophilia some allergy (metal) related to the rods that were placed in her back. All of her symptoms started after her back surgery. She does have a diffuse rash it does not look like a Plavix rash. It may be related to colchicine or she received a different prep of oxycodone last night. This was discussed with Dr. Montes the hospitalist service. From my standpoint she can be discharged home with antihistamines to help with the rash. If it persists we may need to stop her colchicine. She needs to remain on aspirin and Plavix given her left main stent and recent TAVR. The rest of her medications can remain the same we will see her in 2 weeks in the office
[2019-10-21 09:56] LABS: Albumin Level 2.9 gm/dl (3.4-5.0); BUN Creatinine Ratio 13.1 (10-20); Calcium 9.2 mg/dl (8.5-10.1); Creatinine Clr Calc Pharmacy 75.6 ml/min; Est GFR (Non-African American) 63.8; Potassium 4.2 mmol/L (3.5-5.1)
[2019-10-21 10:02] LABS: Phosphorus 3.1 mg/dl (2.5-4.9); Troponin I 5.95 ng/ml (0-0.045)
--- NOTE | 2019-10-21 21:51 | Electrocardiogram Report ---
Test Reason : Blood Pressure : / mmHG Vent. Rate : 100 BPM Atrial Rate : 100 BPM P-R Int : 150 ms QRS Dur : 150 ms QT Int : 398 ms P-R-T Axes : 052 062 -68 degrees QTc Int : 513 ms Normal sinus rhythm Left bundle branch block Abnormal ECG When compared with ECG of 20-OCT-2019 07:21, No significant change was found Confirmed by Natanael Montenegro ([id number]) on 10/21/2019 9:51:10 PM Referred By: REFERRED SELF Confirmed By:Natanael Montenegro
--- NOTE | 2019-10-24 17:14 | Discharge Summary ---
Date of Service October 21, 2019 Admission HPI Per Admitting Provider The patient is a 59-year-old female with a past medical history including fibromyalgia, thoracic spine surgery with sebastien placement, rotator cuff repair, spinal fusion, duodenal stenosis, TAVR, obesity, COPD, migraine and anxiety. She presents to the emergency department with persistent chest discomfort over the past 2-1/2 weeks as noted, without change even after stent placement and TAVR at 1 week ago. The pain does worsen with a deep breath, is worse with lying flat, and does improve with sitting up. She does take Endocet 7.5/2.5 5 times daily, but only marginally helps the pain. Principal Diagnosis Myopericarditis Discharge Exam Constitutional WD/WN, vitals as above + overweight Eyes PERRL, conjunctivae normal, anicteric sclerae ENMT external ear and nose normal, oropharynx normal Neck trachea midline, no thyromegaly Respiratory normal respiratory effort, lungs clear to auscultation Cardiovascular Rate/Rhythm: regular rate and regular rhythm Heart Sounds: normal S1, normal S2 and + cardiac rub (slight); no murmur Vessels: no JVD Extremities: normal capillary refill; no edema Gastrointestinal (Abdomen) normal bowel sounds, soft, nontender, no hepatosplenomegaly Musculoskeletal no cyanosis or clubbing, extremities motor strength 5/5 Skin + rash (erythematous rash on face, arms, chest, looks like drug reaction) Neurologic patellar DTR's 2+ bilat, sensation intact and PERRL, EOMI, accommodation nl, no face palsy, no dysarthria Psychiatric A+Ox3, euthymic affect Lymphatic no cervical or axillary lymphadenopathy Discharge Data Allergies Allergy/AdvReac Type Severity Reaction Status Date / Time metronidazole [From Flagyl] Allergy Severe Hives Verified 09/02/19 09:40 Gold Salts Allergy Intermediate Hives Verified 09/02/19 09:40 nafcillin Allergy Intermediate Hives Verified 09/02/19 09:40 wheat Allergy Intermediate migraines/joint Verified 09/02/19 09:40 pain medroxyprogesterone Allergy Mild HIVES Verified 09/02/19 09:40 peanut Allergy Mild Migraine Verified 09/02/19 09:40 shellfish derived Allergy Mild Migraine Verified 09/02/19 09:40 Penicillins AdvReac Intermediate Hives Verified 09/02/19 09:40 morphine AdvReac Mild nausea Verified 09/02/19 09:40 /vomit CONTRAST MEDIA AdvReac EDEMA, Uncoded 10/19/19 19:49 SKIN PEELING, HAIR LOSS Consultations 10/19/19 19:32 ED Decision to Admit Stat 10/19/19 23:00 Consult Case Management - Discharge Planning Routine 10/20/19 12:34 Consult Cardiology Routine Ordered Studies 10/19/19 20:26 CT chest wo con Stat Hospital Course (1) Pericarditis: likely myopericarditis, h/o inflammatory disease, could be rheumatologic had similar symptoms prior to TAVR no pericardial effusion on echo responded very well to Colchicine, will continue BID dosing on discharge possible mild drug reaction to the Colchicine as it was the only new medications, relieved with Benadryl she will continue to monitor, use Benadryl as needed, of note she CANNOT tolerate Prednisone told her to come to PCP if rash gets worse continue aspirin can use Motrin PRN, instructed her to always take with food troponin trending down will follow up with PCP and [facility] on discharge (2) S/P TAVR (transcatheter aortic valve replacement): Status post TAVR 7 days prior to admission also with stent in left main only due to position of the valve CT of chest with pericardial thickening New left bundle branch block echo shows valve in good position, functioning well TAVR and stent not causing her symptoms, if her left main stent occluded she would likely be in shock, have significant wall motion abnormality (3) New onset left bundle branch block (LBBB): unclear why, she did not have LBBB on EKG after procedure could be due to myopericarditis? not concerning for ACS, no role for heparin drip, appreciate consult from Dr. Benson troponin going down (4) Elevated troponin: due to myopericarditis, not due to ACS trending down on last check (5) Fibromyalgia: Continue usual supportive medications (6) Multiple closed fractures of ribs of both sides with routine healing: Noted on CT, may likely be contributing to some of her pain as well, including that of fibromyalgia (7) Anxiety: Continue Lorazepam 1 mg p.o. 3 times daily (8) Anemia: Hemoglobin 9.4 upon admission, with most recent being 10.1 on 06/23/2019. Follow serially (9) Asthma: Continue usual inhalers. Total Time Total Time Spent Total Time Spent (In Minutes): 32 minutes Total Time Includes: Examination of the Patient, Discharge Planning, Medication Reconciliation and Communication With Other Providers (Dr. Benson) Discharge Plan Discharge Items Patient Disposition: Home - Self-Care Reason For Visit: S/P AVR,NSTEMI,CHEST PAIN Discharge Diagnosis: Myopericarditis Drug rash, possible reaction to colchicine Condition on Discharge: Good Goals: continue Colchicine twice a day until told to reduce by cardiology follow up with Dr. Veliz next week Activity: Resume your previous activity Non-emergency contact: Primary Care Provider and Customer Success Manager Call non-emergency contact if: you have any medication questions, your symptoms worsen, your pain is not controlled and you have a fever Follow-up/Referrals: Kevin Veliz DO [Primary Care Provider] - 10/25/19 12:50 pm (Next week) Be Benson DO [Physician] - (DR. Maynard office will call patient) Diet: Regular Addtl Attending Provider Instructions: Medications: - COLCHICINE: take twice a day until told to reduce by cardiology - ZYRTEC: take once a day for the next 1-2 weeks for allergy symptoms - BENADRYL: take 25-50mg every 6 hours as needed for allergy symptoms - IBUPROFEN: you can continue to take this as needed for pain, take WITH FOOD Myopericarditis evidence of some inflammation around heart on CT scan of chest no pericardial effusion on echocardiogram elevated troponin fits with this diagnosis, plus you improved with colchicine Dr. Benson evaluated your echo, valve in good position, functioning well he did discuss presentation with cardiothoracic surgery at [facility] in agreement that this does NOT represent an acute ND, as your echo was normal plan to use Colchicine BID until told to reduce by cardiology you can use ibuprofen as needed for chest pain, take with food Follow up: Dr. Veliz in one week Dr. Benson, his office will call you Pending Studies at Discharge: No Stand-Alone Forms: My bepretty, Smoking Cessation Medications and DC Order Prescriptions: New cetirizine 10 mg Tablet 10 mg PO QAM 14 Days Qty: 14 RF: 1 colchicine [Colcrys] 0.6 mg Tablet 0.6 mg PO BID 30 Days Qty: 60 RF: 0 Continued clopidogrel 75 mg tablet 75 mg PO UD RF: 0 aspirin [Aspirin Low Dose] 81 mg Tablet,Delayed Release (Dr/Ec) 81 mg PO QAM RF: 0 cyclobenzaprine 10 mg tablet 10 mg PO BID PRN (Reason: Muscle Spasm) RF: 0 acetaminophen [Tylenol Extra Strength] 500 mg Tablet 500 mg PO QID PRN (Reason: Pain) RF: 0 triamcinolone acetonide 0.1 % cream 1 applic topical BID PRN (Reason: Rash) RF: 0 calcium carbonate [Calcium 600] 600 mg calcium (1,500 mg) Tablet 600 mg PO QAM RF: 0 ibuprofen 200 mg Tablet 400 - 800 mg PO Q6H PRN (Reason: Pain) RF: 0 lorazepam [Ativan] 1 mg Tablet 1 mg PO TID RF: 0 oxycodone-acetaminophen [Endocet] 7.5-325 mg tablet 1 tab PO 5XD RF: 0 albuterol sulfate [ProAir HFA] 90 mcg/actuation HFA aerosol inhaler 2 puff inhalation Q6H PRN (Reason: SOB/Wheezing) RF: 0 yhiltegnqp-slyhlvipymmbw-swvx 50-300-40 mg capsule 1 cap PO DAILY PRN (Reason: Migraines) RF: 0 ondansetron HCl [Zofran] 4 mg Tablet 4 mg PO BID PRN (Reason: Nausea) RF: 0 dicyclomine 10 mg Capsule 10 mg PO QID PRN (Reason: Abdominal Discomfort) RF: 0 Discharge Orders: Discharge Order (Routine); Ordered 10/21/19 Ordered By: Dewayne Montes Admission Data Admit Date/Time: 10/19/19 21:04 Attending Provider: Dewayne Montes Admit Provider: Augustin Wilkerson Primary Care Provider: Kevin Veliz Other Providers: Augustin Wilkerson ; Be Benson Other Interventions: Discharge Summary Assessment (RN) Last Done: 10/21/19 10:03 DC Date/Time DO NOT enter until pt leaves facility: 10/21/19 11:24 Coding Level of Care Code D/C Day Management >30 mins Diagnoses Pericarditis I30.9 Chronicity: acute Pericarditis type: unspecified type S/P TAVR (transcatheter aortic valve replacement) Z95.2 New onset left bundle branch block (LBBB) I44.7 Elevated troponin R79.89 Fibromyalgia M79.7 Multiple closed fractures of ribs of both sides with routine healing S22.43XD Anxiety F41.9 Anemia D64.9 Asthma J45.909
== END 2019-10-21 11:24 | disposition home or self-care (01) | DRG 315 ==
LOC: ED 17:04 → SUATTDRO 21:04 → 2S 21:04